=== PATIENT | male | born 1965 | race Caucasian/White ===

== ENCOUNTER 2024-10-28 09:18 | Emergency (ER) | payer OTHER, SELFPAY ==
--- OUTSIDE RECORDS SUMMARY | 2024-10-28 09:21 | XMS_ITS | Encounter Summary ---
Author Organization [facility] Address [address] [place] [address] Phone Care Team Providers Care Senior Center Manager Name Role Phone Kayli Dejesus DO Primary Care Provider +1- [phone] Reason for Visit * Reason Onset Date Comments ER F/U 02/27/2024 Encounter Details Date Type Department Care Team (Late st Contact Info) Description 02/27/2024 Telephone [facility] [address] [place] [address] Kayli Dejesus DO [address] [place] [address] ER F/U Social History Tobacco Use Types Packs/Day Years Used Date Smoking Tobacco: Never Passive Smoke Exposure: Never Smokeless Tobacco: Never Alcohol Use Standard Drinks/Week Comments Never 0 (1 standard drink = 0.6 oz pur e alcohol) B1300 Health Literacy Answer Date Recor ded How often do you need to hav e someone help you when you read instructions, pamphlets, or other written material from your doctor or pharmacy? Never 05/29/2023 [facility] Utilities Answer Date Recorded In the past 12 months has e electric, gas, oil, or water company threatened to shut off services in your home? No 12/18/2023 Hunger Vital Sign Answer Date Recorded Within the past 12 months, y ou worried that your food would run out before you got the money to buy more. Never true 12/18/19 24 Within the past 12 months, t he food you bought just didn't last and you didn't have money to get more. Never true 12/18/2023 PRAPARE - Transportation Answer Date Re corded In the past 12 months, has l ack of transportation kept you from medical appointments or from getting medications? No 12/08 In the past 12 months, has l ack of transportation kept you from meetings, work, or from getting things needed for daily living? No 12/18/2023 Housing Stability Vital Sign Answer Jono e Recorded In the last 12 months, was t here a time when you were not able to pay the mortgage or rent on time? No 01/13/2023 Number of Places Lived in the Last Year Not on f ile 01/13/2023 In the last 12 months, was t here a time when you did not have a steady place to sleep or slept in a snf (including now)? No 01/13/2023 Housing Stability Vital Sign Answer Jono e Recorded In the last 12 months, was t here a time when you were not able to pay the mortgage or rent on time? No 12/18/2023 Number of Times Moved in the Last Year Not on fi le 12/18/2023 At any time in the past 12 m [facility], were you homeless or living in a snf (including now)? No 12/18/2023 Sex and Gender Information Value Date Recorded Sex Assigned at Not on file Legal Sex Male 11:58 AM CDT Gender Identity Not on file Sexual Orientation Not on file documented as of this encounter Miscellaneous Notes * Telephone Encounter - Katie Carty - 02/28/2024 8:10 AM CST Second attempt Left voicemail and sent HTR letter for patient to call back and schedule ED follow up OR SHAREPOINT DEVELOPER * Telephone Encounter - Suki Ernandez - 02/27/2024 8:44 AM CST First attempt, LMTCB If call is returned, please assist with scheduling an ED follow up visit per below order OR SHAREPOINT DEVELOPER * Telephone Encounter - Suki Ernandez - 02/27/2024 8:44 AM CST ----- Message from Grayson Peters sent at 02/25/2024 12:36 AM SENIOR SHAREPOINT DEVELOPER ----- Regarding: Order for TIESHA GANDARA Order Specific Information Order: FLORENCIO FOLLOW UP APPOINTMENT [Custom: [id number]] Order #: [id number]: 1 Priority: Routine Class: Normal(N) Provider/Service to follow up with -> PCP Type of appointment -> ED Follow up When does appointment need to be scheduled -> 2-3 days Reason for test/appointment -> back pain, leg swelling OR SHAREPOINT DEVELOPER documented in this encounter Plan of Treatment Not on file documented as of this encounter Goals Goal Patient Goal Type Associated Problems Recent Progress Patient-Stated? Author PT R hip Physical Therapy No [facility] PT Note: Within 8 weeks (07/22/20): 1) Pt will be I and compliant with HEP in order to make progress towards functional outcomes. 2) Pt will have improved pain c/o to 0-3/10 average and 0-5/10 most in R hip to allow return towards functional activity. 3) Pt will have improved hip strength to 5/5 in order to have good prox stability for functional mobility. 4) Pt will improve B hamstring length by at least 10d to reduce strain on hips. 5) Pt will progress through a stability program to allow return towards normal activities with reduced risk of injury. PT General Goal Physical Therapy No Ree Levy, PT Note: Patient will complete the following goals in 8 weeks : 1) Patient will be independent and adherent to HEP for greater tank terminal gauger management of condition. 2) Pt will have no pain when playing piano. 3) Pt will be able to lift granddaughter (30#) with no increase in pain 4) Pt will be able to work a full day on the computer with no increase in shoulder pain. 5) pt will increase shoulder flexion strength to play mensah guitar for 3 hours. PT General Goal Physical Therapy No Leigh Up, PT Note: PELVIC All goals to be met in 90 days Patient will be independent and compliant with home program to maintain functional gains achieved in skilled PT. - still doing exercises consistently, reduced energy recently and also some low back pain, but does them when he can and still feels like they are helpful Patient will demonstrate increase in pelvic floor strength from 1/5 to 2/5 to improve pelvic support and decrease symptoms - improved mobility of pelvic floor and bowel and bladder symptoms aren't worse, maintaining status quo, strength not tested recently but last time assessed still had higher tension but was moving PF well Patient will report ability to urinate without hesitation, delay or straining in order to improve QoL. - varies from day to day but overall frequency of incomplete emptying has decreased Patient will report drinking 4-6 glasses of water per day and no more than 1 soda to improve bladder health and function - progressing, still working on improving water intake but has decreased caffeine intake Patient will score no greater than 9 on Epic- CP to demonstrate increase in quality of life - continue Patient will demonstrate resting levels with 30 second perineal semg assessment no greater than 3 microvolts to demonstrate improved pelvic resting tension and decrease pain - NT recently, focusing more on hip mobility/strengthening Patient will report decrease in average daily pain/pressure to no greater than 1/10 to allow return to PLOF and improve QofL - progressing, having daily pain in scrotal/sit bone area that feels deep but is steady, not really a flare but a constant feeling. Slight increase in low back pain recently due to moving something. Patient will score no greater than 10 on NIH-CSI Outcomes measure to demonstrate improved quality of life - continue Patient will report decrease no pain with sexual intercourse/orgasm to allow return to PLOF and improve QofL -not painful but has discussed ED meds with physician, does not want to pursue this currently. documented as of this encounter Visit Diagnoses Not on filedocumented in this encounter Additional Health Concerns Infection Onset Date Last Indicated Resolved Time Suspected COVID-19 06/15/2024 06/15/2024 4:43 PM CDT Assessment Noted Time A Hypertension Plan of Care has been documented for the patient 01/16/2024 10:37 AM SENIOR SHAREPOINT DEVELOPER documented as of this encounter Care Teams Senior Center Manager Relationship Specialty Start Date End Date Kayli Dejesus DO [facility] [place] [address] PCP - General Family Medicine 11/09/18 documented as of this encounter
--- OUTSIDE RECORDS SUMMARY | 2024-10-28 09:21 | XMS_ITS | Encounter Summary ---
Author Organization [facility] Address [address] [place] [address] Phone Care Team Providers Care Front Office Director Name Role Phone Kayli Dejesus DO Primary Care Provider +1- [phone] Encounter Details Date Type Department Care Team (Late st Contact Info) Description 01/26/2021 Orders Only [facility] Allergy [facility] [address] [place], [place] [id number] Joaquin Tang MD [address] [place], [place] [id number] Allergic rhinitis, unspecified seasonality, unspecified trigger Social History Tobacco Use Types Packs/Day Years Used Date Smoking Tobacco: Never Smokeless Tobacco: Never Alcohol Use Standard Drinks/Week Comments No 0 (1 standard drink = 0.6 oz pur e alcohol) Sex and Gender Information Value Date Recorded Sex Assigned at Not on file Legal Sex Male 11:58 AM CDT Gender Identity Not on file Sexual Orientation Not on file COVID-19 Exposure Response Date Recorded In the last month, have you been in contact with someone who was confirmed or suspected to have Coronavirus / COVID-19? No / Unsure 01/21/2021 2:54 PM DEMOLITION HAMMER OPERATOR documented as of this encounter Plan of Treatment Not on [...] independent and adherent to HEP for greater long term care pharmacist management of condition. 2) Pt will have no pain when playing piano. 3) Pt will be able to lift granddaughter (30#) with no increase in pain 4) Pt will be able to work a full day on the computer with no increase in shoulder pain. 5) pt will increase shoulder flexion strength to play mensah guitar for 3 hours. documented as of this encounter Procedures Procedure Name Priority Date/Time Associated Diagnosis Comments SEAFOOD ALLERGEN PROFILE Routine 01/21/2021 4:03 PM DEMOLITION HAMMER OPERATOR Allergic rhinitis, unspecified seasonality, unspecified trigger NUT ALLERGEN PROFILE Routine 01/21/2021 4:03 PM DEMOLITION HAMMER OPERATOR Allergic rhinitis, unspecified seasonality, unspecified trigger RESPIRATORY PROFILE, REGION 8, [facility], [facility] Routine 01/21/2021 4:03 PM DEMOLITION HAMMER OPERATOR Allergic rhinitis, unspecified seasonality, unspecified trigger documented in this encounter Results * RESPIRATORY PROFILE, REGION 8, [facility], [facility] (01/21/2021 4:03 PM DEMOLITION HAMMER OPERATOR) 01/21/2021 4:03 PM DEMOLITION HAMMER OPERATOR us Joaquin Tang MD REFERENCE BLOOD Final Result [facility] [address] [place] [id number], * SEAFOOD ALLERGEN PROFILE (01/21/2021 4:03 PM DEMOLITION HAMMER OPERATOR) 01/21/2021 4:03 PM DEMOLITION HAMMER OPERATOR us Joaquin Tang MD REFERENCE BLOOD Final Result Performing Organization Address [facility]/ZIP Co de Phone Number [facility] [address] [place] [address], [place] * NUT ALLERGEN PROFILE (01/21/2021 4:03 PM DEMOLITION HAMMER OPERATOR) 01/21/2021 4:03 PM DEMOLITION HAMMER OPERATOR us Joaquin Tang MD REFERENCE BLOOD Final Result Performing Organization Address [facility] Co de Phone Number [facility] [address] [place] [address], [place] documented in this encounter Visit Diagnoses Diagnosis Allergic rhinitis, unspecified seasonality, unspecified trigger documented in this encounter Additional Health Concerns Infection Onset Date Last Indicated Resolved Time Suspected COVID-19 02/25/2021 02/25/2021 12:24 AM DEMOLITION HAMMER OPERATOR COVID-19 02/25/2021 02/25/2021 03/18/2021 10:0 3 PM DEMOLITION HAMMER OPERATOR Suspected COVID-19 06/15/2024 06/15/2024 4:43 PM CDT Assessment Noted Time A Hypertension Plan of Care has been documented for the patient 01/19/2021 11:06 AM DEMOLITION HAMMER OPERATOR documented as of this encounter Care Teams Front Office Director Relationship Specialty Start Date End Date Kayli Dejesus DO [address] [place] [address] PCP - General Family Medicine 11/09/18 documented as of this encounter
--- OUTSIDE RECORDS SUMMARY | 2024-10-28 09:21 | XMS_ITS | Encounter Summary ---
Author Organization [facility] Address [address] [place] [address] Phone Care Team Providers Care Telecommunications Administrator Name Role Phone Kayli Dejesus DO Primary Care Provider +1- [phone] Reason for Visit * Reason Onset Date Comments Refill Request 07/23/2019 Encounter Details Date Type Department Care Team (Late st Contact Info) Description 07/23/2019 Refill [facility] [address] [place] [address] Kayli Dejesus DO [address] [place] [address] Refill Request Social History Tobacco Use Types Packs/Day Years [...] have Coronavirus / COVID-19? No / Unsure 07/13/2019 11:16 AM CDT documented as of this encounter Miscellaneous Notes * Telephone Encounter - Mary Beth Garcia RN - 07/24/2019 2:26 PM CDT RN called pt who states that he is not in any respiratory distress, but that this time of the year his allergies and asthma is worse so he can't be without the neb solution. He states that he has to use the Albuterol inhaler multiple times a day, but Singular and Symbicort doesn't wok for him. Ok to refill these meds for 90 day supply based on this information? * Telephone Encounter - Lorrie Garcia - 07/24/2019 10:03 AM CDT Patient called states he is out needs today & states he was not informed about the 72 hour rule * Telephone Encounter - Kourtney Vizcarra - 07/23/2019 1:10 PM CDT Nebulizer solution reqeusting 270 qty not the 90 documented in this encounter Plan of Treatment Not on file documented as of this encounter Visit Diagnoses Diagnosis Moderate persistent asthma with exacerbation Unspecified asthma, with exacerbation documented in this encounter Additional Health Concerns Infection Onset Date Last Indicated Resolved Time Suspected COVID-19 02/25/2021 02/25/2021 2 12:24 AM PILOT SAFETY INSPECTOR COVID-19 02/25/2021 02/25/2021 03/18/2021 10:0 3 PM PILOT SAFETY INSPECTOR Suspected COVID-19 06/15/2024 06/15/2024 5 4:43 PM CDT Assessment Noted Time A Hypertension Plan of Care has been documented for the patient 01/08/2019 11:10 AM PILOT SAFETY INSPECTOR documented as of this encounter Care Teams Telecommunications Administrator Relationship Specialty Start Date End Date Kayli Dejesus DO [facility] [address] [place] [address] PCP - General Family Medicine 11/09/18 documented as of this encounter
--- OUTSIDE RECORDS SUMMARY | 2024-10-28 09:21 | XMS_ITS | Encounter Summary ---
Author Organization [facility] Address [address] [place] [address] Phone Care Team Providers Care Musical Engineer Name Role Phone Kayli Dejesus DO Primary Care Provider +1- [phone] Encounter Details Date Type Department Care Team (Late st Contact Info) Description 03/01/2024 Results Only [facility] Oncology [facility] [place] [address] [place], [place] [id number] Sarai Medrano MD [address] [place], [place] [id number] Social History Tobacco Use Types Packs/Day Years [...] from your doctor or pharmacy? Never 05/29/2023 [facility] Utilities Answer Date Recorded In the past [...] place to sleep or slept in a [place] (including now)? No 01/13/2023 Housing Stability Vital Sign Answer Jono e Recorded In the last 12 months, was t here a time when you were not able to pay the mortgage or rent on time? No 12/18/2023 Number of Times Moved in the Last Year Not on fi le 12/18/2023 At any time in the past 12 m [place], were you homeless or living in a [place] facility (including now)? No 12/18/2023 Sex and Gender Information Value Date Recorded Sex Assigned at Not on file Legal Sex Male 11:58 AM CDT Gender Identity Not on file Sexual Orientation Not on file documented as of this encounter Plan of Treatment Not on file documented as of this encounter Goals Goal Patient Goal Type Associated Problems Recent Progress Patient-Stated? Author PT R hip Physical Therapy No [facility], PT Note: Within 8 weeks (07/22/20): 1) [...] independent and adherent to HEP for greater retirement management of condition. 2) Pt will have [...] Indicated Resolved Time Suspected COVID-19 06/15/2024 06/15/2024 5 4:43 PM CDT Assessment Noted Time A Hypertension Plan of Care has been documented for the patient 01/16/2024 10:37 AM COMIC ARTIST documented as of this encounter Care Teams Musical Engineer Relationship Specialty Start Date End Date Kayli Dejesus DO [address] [place], [place] [id number] PCP - General Family Medicine 11/09/18 documented as of this encounter
--- OUTSIDE RECORDS SUMMARY | 2024-10-28 09:21 | XMS_ITS | Encounter Summary ---
Author Organization [facility] Address [address] [place] [address] Phone Care Team Providers Care Fitter / Welder Name Role Phone Kayli Dejesus DO Primary Care Provider +1- [phone] Reason for Visit * Reason Onset Date Comments Insurance Prior Authorization 03/16/2024 Encounter Details Date Type Department Care Team (Late st Contact Info) Description 03/16/2024 Telephone [facility] [address] [place] [address] Kayli Dejesus DO [address] [place] [address] Insurance Prior Authorization Social History Tobacco Use Types Packs/Day Years [...] from your doctor or pharmacy? Never 05/29/2023 [facility] Utilities Answer Date Recorded In the past [...] place to sleep or slept in a residential (including now)? No 01/13/2023 Housing Stability Vital Sign Answer Jono e Recorded In the last 12 months, was t here a time when you were not able to pay the mortgage or rent on time? No 12/18/2023 Number of Times Moved in the Last Year Not on fi le 12/18/2023 At any time in the past 12 m [facility], were you homeless or living in a residential (including now)? No 12/18/2023 Sex and Gender Information Value Date Recorded Sex Assigned at Not on file Legal Sex Male 11:58 AM CDT Gender Identity Not on file Sexual Orientation Not on file documented as of this encounter Miscellaneous Notes * Telephone Encounter - Kourtney Vizcarra - 03/16/2024 10:09 AM CST Pt's Fibroscan - Liver is done at GI department. Left message for pt to return call and let him know to call the GI department to schedule. [phone] STRIPPER * Telephone Encounter - Kourtney Vizcarra - 03/16/2024 9:57 AM CST Order FIBROSCAN - LIVER (Order [id number]) Associated Diagnoses ICD-10-CM ICD-9-CM Elevated liver enzymes - Primary R74.8 790.5 Hepatic steatosis K76.0 571.8 Order Questions Question Answer Release to patient Immediate Diagnosis: NAFLD Lab and Collection FIBROSCAN - LIVER (Order: [id number]) - 03/08/2024 Result Read / Acknowledged No acknowledgement history exists for this order. Future Order Information Expected Expires 03/08/2024 09/05/2024 ABN Status ABN Status CPT Codes 76902 FIBROSCAN - LIVER [[id number]] 1520 Status: Active Ordering user: Kayli Dejesus DO 03/08/24 1520 Ordering provider: Kayli Dejesus DO Authorized by: Kayli Dejesus DO Ordering mode: Standard Frequency: 03/08/24 - Released by: Kayli Dejesus DO 03/08/24 1520 Location Name Address Phone Fax [place] [address] [place] [address] STRIPPER documented in this encounter Plan of Treatment [...] independent and adherent to HEP for greater extermination supervisor management of condition. 2) Pt will have [...] Date Last Indicated Resolved Time Suspected COVID-19 06/15/202406/15/2024 05/09/202 5 4:43 PM CDT Assessment Noted Time A Hypertension Plan of Care has been documented for the patient 03/13/2024 1:37 PM CAKE STRIPPER documented as of this encounter Care Teams Fitter / Welder Relationship Specialty Start Date End Date Kayli Dejesus DO [address] [place] [address] PCP - General Family Medicine 11/09/18 documented as of this encounter
--- OUTSIDE RECORDS SUMMARY | 2024-10-28 09:21 | XMS_ITS | Encounter Summary ---
Author Organization [facility] Address [address] [place] [address] Phone Care Team Providers Care Bacteriologist Fishery Name Role Phone Kayli Dejesus DO Primary Care Provider +1- [phone] Encounter Details Date Type Department Care Team (Late st Contact Info) Description 04/13/2023 Telephone [facility] Oncology [facility] [address] [place], [place] [id number] Sarai Medrano MD [address] [place], [place] [id number] Social History Tobacco Use Types Packs/Day Years Used Date Smoking Tobacco: Never Passive Smoke Exposure: Never Smokeless Tobacco: Never Alcohol Use Standard Drinks/Week Comments Never 0 (1 standard drink = 0.6 oz pur e alcohol) [facility] Utilities Answer Date Recorded In the past 12 months has e [employer], gas, oil, or water [employer] threatened to shut off services in your home? No 01/13/2023 Hunger Vital Sign Answer Date Recorded Within the past 12 months, y ou worried that your food would run out before you got the money to buy more. Never true 01/14/20 23 Within the past 12 months, t he food you bought just didn't last and you didn't have money to get more. Never true 01/13/2023 PRAPARE - Transportation Answer Date Re corded In the past 12 months, has l ack of transportation kept you from medical appointments or from getting medications? No 08/2022 In the past 12 months, has l ack of transportation kept you from meetings, work, or from getting things needed for daily living? No 01/13/2023 Housing Stability Vital Sign Answer [...] place to sleep or slept in a group home (including now)? No 01/13/2023 Sex and Gender Information Value Date Recorded Sex Assigned at Not on file Legal Sex Male 11:58 AM CDT Gender Identity Not on file Sexual Orientation Not on file documented as of this encounter Miscellaneous Notes * Telephone Encounter - Kavya Ahuja - 04/13/2023 4:36 PM CST Pt states that he is returning a call to [facility]. No documentation is found by keno writer/runner on why patient was called. Y HUSBANDMAN documented in this encounter Plan of Treatment [...] independent and adherent to HEP for greater lobsterman management of condition. 2) Pt will have [...] Care has been documented for the patient 04/12/2023 11:10 AM DAIRY HUSBANDMAN documented as of this encounter Care Teams Bacteriologist Fishery Relationship Specialty Start Date End Date Kayli Dejesus DO [address] [place] [address] PCP - General Family Medicine 11/09/18 documented as of this encounter
--- OUTSIDE RECORDS SUMMARY | 2024-10-28 09:21 | XMS_ITS | Encounter Summary ---
Author Organization [facility] Address [address] [place] [address] Phone Care Team Providers Care Commodities Broker Name Role Phone Kayli Dejesus DO Primary Care Provider +1- [phone] Encounter Details Date Type Department Care Team (Late st Contact Info) Description 01/03/2024 Orders Only [facility] [address] [place] [address] Janene Jacobsen PA [address] [place] [address] Other fatigue Social History Tobacco Use Types Packs/Day Years [...] from your doctor or pharmacy? Never 05/29/2023 [facility] Utilities Answer Date Recorded In the [...] place to sleep or slept in a long-term (including now)? No 01/13/2023 Housing Stability Vital Sign Answer Jono e Recorded In the last 12 months, was t here a time when you were not able to pay the mortgage or rent on time? No 12/18/2023 Number of Times Moved in the Last Year Not on fi le 12/18/2023 At any time in the past 12 m onths, were you homeless or living in a long-term (including now)? No 12/18/2023 Sex and Gender [...] independent and adherent to HEP for greater terminal clerk management of condition. 2) Pt will have [...] this currently. documented as of this encounter Procedures Procedure Name Priority Date/Time Associated Diagnosis Comments CBC W/DIFF Routine 12/16/2023 10:24 AM AREA FIELD PERSON Other fatigue TSH Routine 12/16/2023 10:24 AM AREA FIELD PERSON Other fatigue documented in this encounter Results * CBC W/DIFF (12/16/2023 10:24 AM AREA FIELD PERSON) WBC (EXTERNAL) 5.5 EXTERNAL LAB RBC (EXTERNAL) 5.44 EXTERNAL LAB HGB (EXTERNAL) 16.9 EXTERNAL LAB HCT (EXTERNAL) 50.1 EXTERNAL LAB MCV (EXTERNAL) 92.1 EXTERNAL LAB MCH (EXTERNAL) 31.1 EXTERNAL LAB MCHC (EXTERNAL) 33.7 EXTERNAL LAB RDW (EXTERNAL) 12.3 EXTERNAL LAB RDW-SD (EXTERNAL) EXTERNAL LAB PLATELET (EXTERNAL) 226 EXTERNAL LAB MPV (EXTERNAL) 10.2 EXTERNAL LAB SEG (EXTERNAL) EXTERNAL LAB LYMPHOCYTE (EXTERNAL) 31.2 EXTERNAL LAB MONOCYTE (EXTERNAL) 9.6 EXTERNAL LAB EOSINOPHIL (EXTERNAL) 3.1 EXTERNAL LAB BASOPHIL (EXTERNAL) 0.2 EXTERNAL LAB ABSOLUTE NEUTR (EXTERNAL) 3,075 EXTERNAL LAB ABSOLUTE LYMPH (EXTERNAL) 1,716 EXTERNAL LAB ABSOLUTE MONO (EXTERNAL) 528 EXTERNAL LAB ABSOLUTE EOS (EXTERNAL) 171 EXTERNAL LAB ABSOLUTE BASO (EXTERNAL) 11 EXTERNAL LAB 12/16/2023 10:2 4 AM AREA FIELD PERSON Janene MCGOVERN HEM/CHEM/IMMUN-BLOOD Final Resul t EXTERNAL LAB * TSH (12/16/2023 10:24 AM AREA FIELD PERSON) TSH (External) 1.78 EXTERNAL LAB 12/16/2023 10:2 4 AM AREA FIELD PERSON Janene MCGOVERN HEM/CHEM/IMMUN-BLOOD Final Resul t EXTERNAL LAB documented in this encounter Visit Diagnoses Diagnosis Other fatigue documented in this encounter Additional Health Concerns Infection Onset Date Last Indicated Resolved Time Suspected COVID-19 06/15/2024 06/15/2024 4:43 PM CDT Assessment Noted Time A Hypertension Plan of Care has been documented for the patient 12/14/2023 2:03 PM AREA FIELD PERSON documented as of this encounter Care Teams Commodities Broker Relationship Specialty Start Date End Date Kayli Dejesus DO [address] [place] [address] [place] [address] PCP - General Family Medicine 11/09/18 documented as of this encounter
--- OUTSIDE RECORDS SUMMARY | 2024-10-28 09:21 | XMS_ITS | Encounter Summary ---
Author Organization [facility] Address [address] [place] [address] Phone Care Team Providers Care Family Practice Medical Doctor Name Role Phone Kayli Dejesus DO Primary Care Provider +1- [phone] Reason for Referral * Generic Med Auth - Closed Specialty Diagnoses / Procedures Referred By Contindia t Referred To Contact Diagnoses Hyperlipidemia, unspecified hyperlipidemia type Procedures AMB MEDICATION AUTHORIZATION REQUIRED Kayli Dejesus DO [address] [place] [address] Phone: tel: fax: Referral ID Status Reason Start Date Expiration Date Visits Re quested Visits Authorized [id number] Closed 10/05/2023 1 1 Reason for Visit * Reason Onset Date Comments Insurance Prior Authorization 10/04/2023 Fl uvastatin 20 mg capsule Encounter Details Date Type Department Care Team (Late st Contact Info) Description 10/04/2023 Telephone [facility] [address] [place] [address] Kayli Dejesus DO [address] [place] [address] Insurance Prior Authorization (Fluvastatin 20 mg capsule ) Social History Tobacco Use Types Packs/Day Years Used Date Smoking Tobacco: Never Passive Smoke Exposure: Never Smokeless Tobacco: Never Alcohol Use Standard Drinks/Week Comments Never 0 (1 standard drink = 0.6 oz pur e alcohol) [address] [place] [address] Literacy Answer Date Recor ded How often do you need to hav e someone help you when you read instructions, pamphlets, or other written material from your doctor or pharmacy? Never 05/29/2023 [facility] Utilities Answer Date Recorded In the past 12 months has th e electric, gas, oil, or water company threatened to shut off services in your home? No 05/29/2023 Hunger Vital Sign Answer Date Recorded Within the past 12 months, y ou worried that your food would run out before you got the money to buy more. Never true 05/29/19 24 Within the past 12 months, t he food you bought just didn't last and you didn't have money to get more. Never true 05/29/2023 PRAPARE - Transportation Answer Date Re corded In the past 12 months, has l ack of transportation kept you from medical appointments or from getting medications? No 05/09 In the past 12 months, has l ack of transportation kept you from meetings, work, or from getting things needed for daily living? No 05/29/2023 Housing Stability Vital Sign Answer Jono e [...] the mortgage or rent on time? No 05/29/2023 Number of Times Moved in the Last Year Not on fi le 05/29/2023 At any time in the past 12 m [facility], were you homeless or living in a [place] (including now)? No 05/29/2023 Sex and Gender Information Value Date Recorded Sex Assigned at Not on file Legal Sex Male 11:58 AM CDT Gender Identity Not on file Sexual Orientation Not on file documented as of this encounter Miscellaneous Notes * Telephone Encounter - Lesia Milton - 10/11/2023 11:10 AM CDT Images from the original note were not included. AUTHORIZATION APPROVED PAYER & PORTAL USED (IF ANY) BCBS / [facility] [employer] AUTH / KIM # [id number] MEDICATION Fluvastatin 20 mg capsule DATE RANGE 09/07/2023 - 10/06/2024 REFERENCE # OR SNIP SEE SNIP BELOW [facility] [phone] & M WITH MEDICATION APPROVAL INFO * Telephone Encounter - Katrin Marin RN - 10/05/2023 1:15 PM CDT Please route any update/status requests to p patient access prior auth unit. RX nurse does not receive the determinations. Referral work up done and sent to Prior Auth Unit WQ. * Telephone Encounter - Henna Pearson - 10/04/2023 2:48 PM CDT Note from pharmacy fax: RECEIVED PA REQUEST FOR Fluvastatin 20 mg capsule documented in this encounter Plan of Treatment [...] independent and adherent to HEP for greater senior planner management of condition. 2) Pt will have [...] as of this encounter Visit Diagnoses Diagnosis Hyperlipidemia, unspecified hyperlipidemia type- Primary documented in this encounter Additional Health Concerns Infection Onset Date Last Indicated Resolved Time Suspected COVID-19 06/15/2024 06/15/2024 4:43 PM CDT Assessment Noted Time A Hypertension Plan of Care has been documented for the patient 09/22/2023 11:12 AM CDT documented as of this encounter Care Teams Family Practice Medical Doctor Relationship Specialty Start Date End Date Kayli Dejesus DO [address] [place], [place] [id number] PCP - General Family Medicine 11/09/18 documented as of this encounter
--- OUTSIDE RECORDS SUMMARY | 2024-10-28 09:21 | XMS_ITS | Encounter Summary ---
Author Organization [facility] Address [address] [place] [address] Phone Care Team Providers Care Flour Distributor Name Role Phone Catalino Leon DO Primary Care Provider +1- [phone] Reason for Visit * Reason Onset Date Comments Referral 05/27/2020 Encounter Details Date Type Department Care Team (Late st Contact Info) Description 05/27/2020 Telephone [facility] [address] [place] [address] Catalino Leon DO [address] [place] [address] Referral Social History Tobacco Use Types Packs/Day Years [...] have Coronavirus / COVID-19? No / Unsure 05/27/2020 2:07 PM CDT documented as of this encounter Miscellaneous Notes * Telephone Encounter - Ramandeep Huffman - 05/27/2020 2:23 PM CDT Scheduled * Telephone Encounter - Piterhortencia Dara - 05/27/2020 2:15 PM CDT Any provider is okay, first available. Thank you! * Telephone Encounter - ShermanPrimitivoie - 05/27/2020 11:10 AM CDT Pt is Ref CATALINO LEON, BPH associated with nocturia, (in comments office has Normal PSA, decreased stream, semen on urine specimen without recent intercourse) Please advise on scheduling with provider. Thank you please route back to P Referral Center documented in this encounter Plan of Treatment [...] normal activities with reduced risk of injury. documented as of this encounter Visit Diagnoses Not on filedocumented in this encounter Additional Health Concerns Infection Onset Date Last Indicated Resolved Time Suspected COVID-19 02/25/2021 02/25/2021 2 12:24 AM CUSTOM BOW MAKER COVID-19 02/25/2021 02/25/2021 03/18/2021 10:0 3 PM CUSTOM BOW MAKER Suspected COVID-19 06/15/2024 06/15/2024 5 4:43 PM CDT Assessment Noted Time A Hypertension Plan of Care has been documented for the patient 05/26/2020 8:37 AM CDT documented as of this encounter Care Teams Flour Distributor Relationship Specialty Start Date End Date Catalino Leon DO [address] [place] [address] PCP - General Family Medicine 11/09/18 documented as of this encounter
--- OUTSIDE RECORDS SUMMARY | 2024-10-28 09:21 | XMS_ITS | Encounter Summary ---
Author Organization [facility] Address [address] [place] [address] Phone Care Team Providers Care Air Export Logistics Manager Name Role Phone Kayli Dejesus DO Primary Care Provider +1- [phone] Encounter Details Date Type Department Care Team (Late st Contact Info) Description 06/03/2023 Telephone [facility] 2nd Floor [address], [place] [id number] Nurse, [facility] [address] [place], [place] [address] Social History Tobacco Use Types Packs/Day Years [...] from your doctor or pharmacy? Never 05/29/2023 [facility] Utilities Answer Date Recorded In the past 12 months has e electric, gas, oil, or water [employer] threatened to shut off services in your [...] place to sleep or slept in a usp (including now)? No 01/13/2023 Housing Stability Vital Sign Answer Jono e Recorded In the last 12 months, was t here a time when you were not able to pay the mortgage or rent on time? No 05/29/2023 Number of Times Moved in the Last Year Not on fi le 05/29/2023 At any time in the past 12 m [facility], were you homeless or living in a usp (including now)? No 05/29/2023 Sex and Gender Information Value Date Recorded Sex Assigned at Not on file Legal Sex Male 11:58 AM CDT Gender Identity Not on file Sexual Orientation Not on file documented as of this encounter Miscellaneous Notes * Telephone Encounter - Raquel Sandhu RN - 06/03/2023 9:17 AM CDT Called patient regarding Transitional Care Clinic referral from ER. Patient states he is taking theantibiotic and feels his leg is improving. Offered TCC appointment. Pt agreeable and appointment scheduled. Patient does have follow-up with PCP on Tuesday06/07/2023. Order for TIESHA GANDARA Jason Aaron, MD ([phone]) Sent: TueJune 02, 2023 4:32 PM To: P Transitional Care Clinic Rn Message Order Specific Information Order: TRANSITIONAL CARE CLINIC REQUEST [Custom: [id number]] Order #: [id number]: 1 Priority: Routine Released on: 06/02/2023 4:32 PM documented in this encounter Plan of Treatment [...] independent and adherent to HEP for greater [place] [facility] management of condition. 2) Pt will have [...] Care has been documented for the patient 05/09/2023 7:49 AM CDT documented as of this encounter Care Teams Air Export Logistics Manager Relationship Specialty Start Date End Date Kayli Dejesus DO [address] [place] [address] PCP - General Family Medicine 11/09/18 documented as of this encounter
--- OUTSIDE RECORDS SUMMARY | 2024-10-28 09:21 | XMS_ITS | Encounter Summary ---
Author Organization [facility] Address [address] [place] [address] Phone Care Team Providers Care Indoor Plant Technician Name Role Phone Wilmersaida Kayli Jamison DO Primary Care Provider +1- [phone] Reason for Visit * Reason Onset Date Comments Recall 06/10/2023 Encounter Details Date Type Department Care Team (Late st Contact Info) Description 06/10/2023 Telephone [facility] [address] [place], [place] [address] Romeo Charles MD [address] [place] [address] Recall Social History Tobacco Use Types Packs/Day Years [...] from your doctor or pharmacy? Never 05/29/2023 [facility] Utilities Answer Date Recorded In the [...] any time in the past 12 m [facility], were you homeless or living in a usp (including now)? No 05/29/2023 Sex and Gender Information Value Date Recorded Sex Assigned at Not on file Legal Sex Male 11:58 AM CDT Gender Identity Not on file Sexual Orientation Not on file documented as of this encounter Miscellaneous Notes * Telephone Encounter - Romeo Charles MD - 06/10/2023 12:28 PM CDT 6 months * Telephone Encounter - Agustina Brar RN - 06/10/2023 12:[address] Guevara- when do you want to see patient back? * Telephone Encounter - Henna Mcclendon - 06/10/2023 11:33 AM CDT Patient called in to schedule follow up with Ismael. did not mention when patient should return to clinic. Please advise and call patient documented in this encounter Plan of Treatment [...] and adherent to HEP for greater senior care management of condition. 2) Pt will have [...] Care has been documented for the patient 06/07/2023 10:06 AM CDT documented as of this encounter Care Teams Indoor Plant Technician Relationship Specialty Start Date End Date Kayli Dejesus DO [address] [place] [address] PCP - General Family Medicine 11/09/18 documented as of this encounter
--- OUTSIDE RECORDS SUMMARY | 2024-10-28 09:21 | XMS_ITS | Encounter Summary ---
Author Organization [facility] Address [address] [place] [address] Phone Care Team Providers Care Investment Trader Name Role Phone Kayli Dejesus DO Primary Care Provider +1- [phone] Reason for Referral * Consultation - Closed Specialty Diagnoses / Procedures Referred By Contac t Referred To Contact Cardiology Diagnoses Palpitations SOB (shortness of breath) SVT (supraventricular tachycardia) ([facility]) Procedures AMB CONSULT CARDIOLOGY Kayli Dejesus DO [address] [place] [address] Phone: tel: fax: [facility] [place] [address] [place] [address] Phone: tel: fax: Referral ID Status Reason Start Date Expiration Date Visits Re quested Visits Authorized [id number] Closed 04/11/2023 1 1 ING PIPE DRILLER AND THREADER Reason for Visit * Reason Onset Date Comments Results 04/11/2023 Encounter Details Date Type Department Care Team (Late st Contact Info) Description 04/11/2023 Telephone [facility] [place] [address] [place] [address] Kayli Dejesus DO [address] [place] [address] Results Social History Tobacco Use Types Packs/Day Years Used Date Smoking Tobacco: Never Passive Smoke Exposure: Never Smokeless Tobacco: Never Alcohol Use Standard Drinks/Week Comments Never 0 (1 standard drink = 0.6 oz pur e alcohol) [facility] Utilities Answer Date Recorded In the past [...] place to sleep or slept in a nursing home (including now)? No 01/13/2023 Sex and Gender Information Value Date Recorded Sex Assigned at Not on file Legal Sex Male 11:58 AM CDT Gender Identity Not on file Sexual Orientation Not on file documented as of this encounter Miscellaneous Notes * Telephone Encounter - Fermin, MILLA Jackson - 04/11/2023 3:39 PM CST Called patient and reviewed below results from Dr. Dejesus. Patient states understanding and agreeable with plan. Nurse reviewed pursed lip breathing. Patient states he did have recent episodes over the weekend. States weird HR, feeling faint, guys at work said I looked pale. Patient also states he's been short of breath, dizzy, experienced heavychest and has been wheezy. States BP was 131/81 yesterday. Advised patient if he experiences these symptoms to seek care in ED to be further evaluated. Patient agreeable. Patient agreeable with with med dosage adjustment if needed. Patient agreeable to Cardiology. Order placed. Due to ongoing symptoms patient also scheduled for appt with Dr. Dejesus 04/12/23 at 11am. ING PIPE DRILLER AND THREADER * Telephone Encounter - Manuel Christensen LPN - 04/11/2023 3:16 PM CST ----- Message from Kayli Dejesus DO sent at 04/06/2023 10:46 AM SMOKING PIPE DRILLER AND THREADER ----- Please call patient with results. Overall findings are reassuring. He does have some episodes of supraventricular tachycardia but these are brief and limited. When these episodes occur typically doing things like breathing through a straw or breathing slowly through pursed lips can be helpful for driving heart rate down. Patient isalso on beta-anthony at this time and medication could be adjusted for more optimal control of these episodes if patient is able to tolerate an adjustment. At this time if patient is otherwise not having significant symptoms with these episodes does not require any adjustment to medication. If patient does have return of symptoms or persistent duration of these symptoms then more intervention may be needed at that time and or referral to Cardiology. ING PIPE DRILLER AND THREADER ING PIPE DRILLER AND THREADER documented in this encounter Plan of Treatment [...] independent and adherent to HEP for greater snf management of condition. 2) Pt will have [...] as of this encounter Visit Diagnoses Diagnosis Palpitations- Primary SOB (shortness of breath) Shortness of breath SVT (supraventricular tachycardia) ([facility]) Other specified cardiac dysrhythmias documented in this encounter Additional Health Concerns Infection Onset Date Last Indicated Resolved Time Suspected COVID-06/15/2024 06/15/2024 4:43 PM CDT Assessment Noted Time A Hypertension Plan of Care has been documented for the patient 01/20/2023 2:55 PM SMOKING PIPE DRILLER AND THREADER documented as of this encounter Care Teams Investment Trader Relationship Specialty Start Date End Date Kayli Dejesus DO [address] [place] [address] PCP - General Family Medicine 11/09/18 documented as of this encounter
--- OUTSIDE RECORDS SUMMARY | 2024-10-28 09:21 | XMS_ITS | Encounter Summary ---
Author Organization [facility] Address [address] [place] [address] Phone Care Team Providers Care Ditch Rider Name Role Phone Kayli Dejesus DO Primary Care Provider +1- [phone] Reason for Visit * Reason Onset Date Comments Medication Problem 09/22/2023 Repeat Call 09/22/2023 Encounter Details Date Type Department Care Team (Late st Contact Info) Description 09/22/2023 Telephone [facility] [address] [place] [address] Kayli Dejesus DO [address] [place] [address] Medication Problem; Repeat Call Social History Tobacco Use Types Packs/Day Years [...] from your doctor or pharmacy? Never 05/29/2023 [facility] Utilities Answer Date Recorded In the past [...] place to sleep or slept in a mcc (including now)? No 01/13/2023 Housing Stability Vital Sign Answer Jono e Recorded In the last 12 months, was t here a time when you were not able to pay the mortgage or rent on time? No 05/29/2023 Number of Times Moved in the Last Year Not on fi le 05/29/2023 At any time in the past 12 m [facility], were you homeless or living in a mcc (including now)? No 05/29/2023 Sex and Gender Information Value Date Recorded Sex Assigned at Not on file Legal Sex Male 11:58 AM CDT Gender Identity Not on file Sexual Orientation Not on file documented as of this encounter Miscellaneous Notes * Telephone Encounter - Kalyi Dejesus DO - 09/22/2023 3:35 PM CDT Order updated/signed * Telephone Encounter - Diya James RN - 09/22/2023 3:17 PM CDT Spoke with pt and he states just keep the dose the same as before since the insurance isn't wantingto cover the BID dosing. Pt states he can just keep breaking the tab in 1/2. To NLA or orders. Previous order was for 15mg 1/2 tab BID * Telephone Encounter - Taurus Perez - 09/22/2023 1:22 PM CDT ..pt returning the nurse???s call. software implementation specialist was unable to reach the RN on extension [phone] or [phone] at this time. Chauncey can best be reached at [phone] number * Telephone Encounter - Diya James RN - 09/22/2023 12:45 PM CDT Pt was unable to speak to nurse at the time of the call. He will call back when he can. Wanted to speak to pt about options on meds. One option would be to us [facility] to get sims down if pt is wanting to stay on the current dose and not change dose or how he is taking it. Per [facility] wouldbe approx $14.92 for #60 of the 7.5mg. will discuss further with pt and then with pharmacy on how to proceed. * Telephone Encounter - Emma Krueger - 09/22/2023 12:08 PM CDT Belle from [facility] pharmacy is calling to confirm Buspirone medication for patient. Pharmacy number is [phone] Belle states insurance won't cover the Buspirone 7.5 mg twice a day but will cover Buspirone 15 mgonce daily.. documented in this encounter Plan of Treatment Not on file documented as of this encounter Goals Goal Patient Goal Type Associated Problems Recent Progress Patient-Stated? Author PT R hip Physical Therapy Litzy Nice PT Note: Within 8 weeks (07/22/20): 1) [...] to HEP for greater long term care phlebotomist management of condition. 2) Pt will have [...] as of this encounter Visit Diagnoses Diagnosis Anxiety disorder, unspecified type documented in this encounter Additional Health Concerns Infection Onset Date Last Indicated Resolved Time Suspected COVID-19 06/15/2024 06/15/2024 4:43 PM CDT Assessment Noted Time A Hypertension Plan of Care has been documented for the patient 09/22/2023 11:12 AM CDT documented as of this encounter Care Teams Ditch Rider Relationship Specialty Start Date End Date Kayli Dejesus DO [address] [place] [address] PCP - General Family Medicine 11/09/18 documented as of this encounter
--- OUTSIDE RECORDS SUMMARY | 2024-10-28 09:21 | XMS_ITS | Encounter Summary ---
Author Organization [facility] Address [address] [place] [address] Phone Care Team Providers Care Middle School Assistant Principal Name Role Phone Kayli Dejesus DO Primary Care Provider +1- [phone] Reason for Visit * Reason Onset Date Comments Transitional Care Management 06/01/2023 Encounter Details Date Type Department Care Team (Late st Contact Info) Description 06/01/2023 Telephone [facility] [address] [place] [address] Kayli Dejesus DO [address] [place] [address] Transitional Care Management Social History Tobacco Use Types Packs/Day Years [...] from your doctor or pharmacy? Never 05/29/2023 [facility] Utilities Answer Date Recorded In [...] time in the past 12 m [facility], were you homeless or living in a long-term (including now)? No 05/29/2023 Sex and Gender Information Value Date Recorded Sex Assigned at Not on file Legal Sex Male 11:58 AM CDT Gender Identity Not on file Sexual Orientation Not on file documented as of this encounter Miscellaneous Notes * Telephone Encounter - Juan Leelee - 06/01/2023 3:29 PM CDT Pt scheduled on 06-06. Pt aware and agreeable. Were your discharge instructions clear and understandable? yes Do you have transportation to your follow-up visit? yes Do you have your medications? yes Do you understand what they are for and how to take them? Yes Is there anything you would like to speak with a care steam fitter about, such as medications, doctor appointments, or services? No If patient schedules and questions were answered, please mookie appointment note as [facility] hospital follow up for the reason for visit. If patient answers any of the 1st four questions with a No or the last question with a Yes then please route back to nursing to address the concern. If patient answers the 1st four questions as yes and the last question as no please close the message after marking the appointment note as TCM. * Telephone Encounter - Yana Mackey RN - 06/01/2023 1:26 PM CDT Call patient to schedule hospital follow up appointment and ask the following questions: Were your discharge instructions clear and understandable? Do you have transportation to your follow-up visit? Do you have your medications? Do you understand what they are for and how to take them? Is there anything you would like to speak with a care steam fitter about, such as medications, doctor appointments, or services? If patient schedules and questions were answered, please mookie appointment note as TCM hospital follow up for the reason for visit. If patient answers any of the 1st four questions with a No or the last question with a Yes then please route back to nursing to address the concern. If patient answers the 1st four questions as yes and the last question as no please close the message after marking the appointment note as TCM. documented in this encounter Plan of Treatment [...] independent and adherent to HEP for greater penitentiary management of condition. 2) Pt will have [...] documented as of this encounter Care Teams Middle School Assistant Principal Relationship Specialty Start Date End Date Kayli Dejesus DO [facility] [place] [address] PCP - General Family Medicine 11/09/18 documented as of this encounter
--- OUTSIDE RECORDS SUMMARY | 2024-10-28 09:21 | XMS_ITS | Encounter Summary ---
Author Organization [facility] Address [address] [place] [address] Phone Care Team Providers Care Supervisor Concrete [employer]ricating Name Role Phone Kayli Dejesus DO Primary Care Provider +1- [phone] Encounter Details Date Type Department Care Team (Late st Contact Info) Description 12/07/2023 Telephone [facility] [address] [place], [place] [id number] Patricia Jones MD [address] [place] [address] Social History Tobacco Use Types Packs/Day Years [...] from your doctor or pharmacy? Never 05/29/2023 [facility] Utilities Answer Date Recorded In [...] place to sleep or slept in a senior care (including now)? No 01/13/2023 Housing Stability Vital Sign Answer Jono e Recorded In the last 12 months, was t here a time when you were not able to pay the mortgage or rent on time? No 05/29/2023 Number of Times Moved in the Last Year Not on fi le 05/29/2023 At any time in the past 12 m [facility], were you homeless or living in a senior care (including now)? No 05/29/2023 Sex and Gender Information Value Date Recorded Sex Assigned at Not on file Legal Sex Male 11:58 AM CDT Gender Identity Not on file Sexual Orientation Not on file documented as of this encounter Miscellaneous Notes * Telephone Encounter - Franky Toro - 12/07/2023 1:53 PM CDT Called [facility] and requested PT's lab results. Labs should be faxed today. 11/3023. * Telephone Encounter - Brea Glass RN - 12/07/2023 11:11 AM CDT Routing to PSR Per Dr Salazar, Please obtain lab records from [facility]. 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 2) Pt will have [...] documented as of this encounter Care Teams Supervisor Concrete Stone Fabricating Relationship Specialty Start Date End Date Kayli Dejesus DO [address] [place] [address] PCP - General Family Medicine 11/09/18 documented as of this encounter
--- OUTSIDE RECORDS SUMMARY | 2024-10-28 09:21 | XMS_ITS | Encounter Summary ---
Author Organization [facility] Address [address] [place] [address] Phone Care Team Providers Care Vacuum Pan Tender Name Role Phone Kayli Dejesus DO Primary Care Provider +1- [phone] Encounter Details Date Type Department Care Team (Late st Contact Info) Description 03/29/[address] [facility] [address] [place] [address] Nurse, [facility] [address] [place] [id number] Social History Tobacco Use Types Packs/Day Years [...] from your doctor or pharmacy? Never 05/29/2023 [facility] Utilities Answer Date Recorded In the past 12 months has [employer], gas, oil, or water company threatened [...] place to sleep or slept in a long term (including now)? No 01/13/2023 Housing Stability Vital Sign Answer Jono e Recorded In the last 12 months, was t here a time when you were not able to pay the mortgage or rent on time? No 12/18/2023 Number of Times Moved in the Last Year Not on fi le 12/18/2023 At any time in the past 12 m [facility], were you homeless or living in a long term (including now)? No 12/18/2023 Sex and Gender Information Value Date Recorded Sex Assigned at Not on file Legal Sex Male 11:58 AM CDT Gender Identity Not on file Sexual Orientation Not on file documented as of this encounter Miscellaneous Notes * Telephone Encounter - Therese Angela - 03/29/2024 8:59 AM CST Mcm sent to schedule consult TOLOGY PHYSICIAN * Telephone Encounter - Kristen Acosta APRN - 03/29/2024 8:40 AM HEPATOLOGY PHYSICIAN Any provider. If ERROL Kayli Jones Amber, Alicia or Alden, 60 minutes. Fibroscan already completed. TOLOGY PHYSICIAN TOLOGY PHYSICIAN * Telephone Encounter - Urszula Turner - 03/29/2024 8:20 AM CST Please review consultation referral. Dx: Fatty liver Referring physician: Oleg Location of notes: chart TOLOGY PHYSICIAN documented in this encounter Plan of Treatment [...] independent and adherent to HEP for greater mcc management of condition. 2) Pt will have [...] documented for the patient 03/13/2024 1:37 PM HEPATOLOGY PHYSICIAN documented as of this encounter Care Teams Vacuum Pan Tender Relationship Specialty Start Date End Date Kayli Dejesus DO [facility] [place] [address] PCP - General Family Medicine 11/09/18 documented as of this encounter
--- OUTSIDE RECORDS SUMMARY | 2024-10-28 09:21 | XMS_ITS | Encounter Summary ---
Author Organization [facility] Address [address] [place] [address] Phone Care Team Providers Care Stock Wetter Name Role Phone Wilmersaida Kayli Jamison DO Primary Care Provider +1- [phone] Encounter Details Date Type Department Care Team (Late st Contact Info) Description 08/08/2020 Telephone [facility] [address] [place] [address] Kishor Castrejon MD Social History Tobacco Use Types Packs/Day Years [...] have Coronavirus / COVID-19? No / Unsure 08/07/2020 2:13 PM CDT documented as of this encounter Miscellaneous Notes * Telephone Encounter - Henna Eid - 08/14/2020 1:49 PM CDT Unable to contact letter sent. * Telephone Encounter - Shayy Robles - 08/08/2020 2:18 PM CDT 1st attempt: Phone call connected but no one there. Line went . Callback and phone rang continuously Please sched per Dr Castrejon 0 Return in about 4 weeks (around 08/14/2020) for FU urine check. documented in this encounter Plan of Treatment [...] adherent to HEP for greater long term acute care registered nurse management of condition. 2) Pt will have [...] 3 hours. documented as of this encounter Visit Diagnoses Not on filedocumented in this encounter Additional Health Concerns Infection Onset Date Last Indicated Resolved Time Suspected COVID-19 02/25/2021 02/25/2021 2 12:24 AM ROLL FINISHER COVID-19 02/25/2021 02/25/2021 03/18/2021 10:0 3 PM ROLL FINISHER Suspected COVID-19 06/15/2024 06/15/2024 5 4:43 PM CDT Assessment Noted Time A Hypertension Plan of Care has been documented for the patient 07/14/2020 8:17 AM CDT documented as of this encounter Care Teams Stock Wetter Relationship Specialty Start Date End Date Kayli Dejesus DO [address] [place] [address] PCP - General Family Medicine 11/09/18 documented as of this encounter
--- OUTSIDE RECORDS SUMMARY | 2024-10-28 09:21 | XMS_ITS | Encounter Summary ---
Author Organization [facility] Address [address] [place] [address] Phone Care Team Providers Care Impregnator Name Role Phone Kayli Dejesus DO Primary Care Provider +1- [phone] Reason for Referral * - Closed Specialty Diagnoses / Procedures Referred By Contac t Referred To Contact Diagnoses Bladder outlet obstruction Procedures US BLADDER CHG SONO PELVIS LIMITED Yg Kamara MD [address] [place] [address] Phone: tel: fax: [facility] [address] [place] [phone] Phone: tel: Referral ID Status Reason Start Date Expiration Date Visits Re quested Visits Authorized [id number] Closed 01/24/2023 1 1 CONNECTOR REPAIRER Encounter Details Date Type Department Care Team (Late st Contact Info) Description 01/21/2023 Telephone [facility] Urology [facility] [address] [place] [address] Yg Kamara MD [address] [place] [address] Social History Tobacco Use Types Packs/Day Years Used Date Smoking Tobacco: Never Smokeless Tobacco: Never Alcohol Use Standard Drinks/Week Comments Never 0 (1 standard drink = 0.6 oz pur e alcohol) [facility] Utilities Answer Date Recorded In [...] place to sleep or slept in a detention (including now)? No 01/13/2023 Sex and Gender Information Value Date Recorded Sex Assigned at Not on file Legal Sex Male 11:58 AM CDT Gender Identity Not on file Sexual Orientation Not on file documented as of this encounter Miscellaneous Notes * Telephone Encounter - Eryn Padgett RN - 01/25/2023 8:53 AM CST Left message for patient to return call to nurse and [employer] message sent to patient regarding below encounter per Dr. Kamara. CONNECTOR REPAIRER * Telephone Encounter - Yg Kamara MD - 01/24/2023 5:56 PM CST Urology RN: Let him know that his PSA from today is normal at 1.0. I would recommend that we check a bladder ultrasound to make sure he is emptying his bladder appropriately. I would also check a urine culture to rule out a urine infection. We can let him know the results. If infection is found, wewill treat with antibiotics. I would recommend he make an appointment next available in late March. However, these tests can be done in the meantime. Because of his discomfort, he can also try Pyridium to help with pain. Let him know this can be taken as needed and will make his urine turned orange colored but is supposed to help soothe any burning or pain sensation. I will prescribe this to the pharmacy for him to try in the meantime. Let him know we are very short staffed and earlier appointments are made for urgent cancers. Let him know that [facility] likely has openings and theirUrology Department and can likely see him sooner. It may be helpful for him to have a 2nd opinion as well. CONNECTOR REPAIRER * Telephone Encounter - Indigo Blanco RN - 01/21/2023 5:[address] Kamara, Patient is concerned about his co morbidities and being seen by you before the end of March. Patient states that his functionality is decreasing in all area's of life. Patient has completed pelvicfloor therapy to no avail, urination is not good, dribbles, taking a long time to start. Low grade pain constant, a 3-4 always present. Waves of 6-7 pain occasional felt in multiple places. Please advise if this patient should be seen sooner than the end of March, and where on your schedule we can place him if you agree with seeing him sooner than first available. Thank you CONNECTOR REPAIRER * Telephone Encounter - Aleksandar Lawler - 01/21/2023 4:54 PM CST Pt called in stating that he would like to schedule a f/u with Dr. Kamara to discuss Sx. Pt states all functionality for him has become limited and he is experiencing regular pain. First available for Dr. Kamara is 04/04/22, pt declined scheduling and would like to be seen by another provider with sooner availability if possible. Pt would like to begin by having a call from the nurses to discuss current Sx and determine f/u timeline. Please advise. Thank you. CONNECTOR REPAIRER documented in this encounter Plan of Treatment [...] independent and adherent to HEP for greater fpc management of condition. 2) Pt will have [...] this currently. documented as of this encounter Results * US BLADDER (01/26/2023 10:02 AM COIL CONNECTOR REPAIRER) Anatomical Region Laterality Modality Pelvis N/A Ultrasound 01/26/2023 8:35 AM COIL CONNECTOR REPAIRER Narrative 01/26/2023 11:10 AM COIL CONNECTOR REPAIRER Accession Exam Completed Date/Time [id number] US BLADDER 01/26/2023 10:02 Requesting: YG KAMARA EXAM: US BLADDER 01/26/2023 8:35 AM TECHNIQUE: Bladder ultrasound CLINICAL INDICATION: Benign prostatic hypertrophy suspected. Bladder outlet obstruction. COMPARISON: CT 04/19/2020 FINDINGS: Prevoid bladder volume is 6.2 x 4.7 x 6.4 cm or 96 cc. Bladder wall measures 4.9 mm in width which is mildly thickened. Post void bladder volume is 3.0 x 1.0 x 2.2 cm or 3.7 cc which is adequate emptying. Color jet seen at the right and left ureterovesicular junction which can be seen with patency. IMPRESSION: 1. Normal bladder emptying. 2. Possible mild bladder hypertrophy Electronically Signed and Authenticated by Chauncey Worrell 01/26/2023 11:10 Procedure Note Chauncey Worrell MD - 01/26/2023 Accession Exam CompletedDate/Time [id number] US BLADDER 310:02 Requesting: YG KAMARA EXAM: US BLADDER 01/26/2023 8:35 AM TECHNIQUE: Bladder ultrasound CLINICAL INDICATION: Benign prostatic hypertrophy suspected. Bladderoutlet obstruction. COMPARISON: CT 04/19/2020 FINDINGS: Prevoid bladder volume is 6.2 x 4.7 x 6.4 cm or 96 cc. Bladderwall measures 4.9 mm in width which is mildly thickened. Post void bladdervolume is 3.0 x 1.0 x 2.2 cm or 3.7 cc which is adequate emptying. Colorjet seen at the right and left ureterovesicular junction which can be seen with patency. IMPRESSION: 1. Normal bladder emptying. 2. Possible mild bladder hypertrophy Electronically Signed and Authenticated by Chauncey Worrell 01/26/2023 11:10 us Yg Kamara MD PORTABLE ULTRASOUND Final Result documented in this encounter Visit Diagnoses Diagnosis Bladder outlet obstruction- Primary Urinary obstruction, unspecified Bladder outlet obstruction Urinary obstruction, unspecified documented in this encounter Additional Health Concerns Infection Onset Date Last Indicated Resolved Time Suspected COVID-19 06/15/2024 06/15/2024 4:43 PM CDT Assessment Noted Time A Hypertension Plan of Care has been documented for the patient 01/20/2023 2:55 PM COIL CONNECTOR REPAIRER documented as of this encounter Care Teams Impregnator Relationship Specialty Start Date End Date Kayli Dejesus DO [address] [facility] [place] [address] PCP - General Family Medicine 11/09/18 documented as of this encounter
--- OUTSIDE RECORDS SUMMARY | 2024-10-28 09:21 | XMS_ITS | Encounter Summary ---
Author Organization [facility] Address [address] [place] [address] Phone Care Team Providers Care Administrative Analyst Name Role Phone Kayli Dejesus DO Primary Care Provider +1- [phone] Encounter Details Date Type Department Care Team (Late st Contact Info) Description 12/04/2020 Orders Only [facility] [address] [place] [address] Kayli Dejesus DO [address] [place] [address] Paresthesia Social History Tobacco Use Types Packs/Day Years [...] have Coronavirus / COVID-19? No / Unsure 12/04/2020 10:23 AM CDT documented as of this encounter Plan of [...] Procedure Name Priority Date/Time Associated Diagnosis Comments GLYCO HB A1C Routine 12/01/2020 12:09 PM CDT Paresthesia VITAMIN D, 25-HYDROXY Routine 12/01/2020 12:09 PM CDT Paresthesia VITAMIN B12 Routine 12/01/2020 12:09 PM CDT Paresthesia documented in this encounter Results * VITAMIN D, 25-HYDROXY (12/01/2020 12:09 PM CDT) Vitamin D, 25-Hydroxy, Total (External) [facility] 12/01/2020 12:0 9 PM CDT us Kayli Dejesus DO HEM/CHEM/IMMUN-BLOOD Final Result [facility] [address] [place] [address], * VITAMIN B12 (12/01/2020 12:09 PM CDT) Vitamin B12 (External) 429 [facility] 12/01/2020 12:0 9 PM CDT us Kayli Dejesus DO HEM/CHEM/IMMUN-BLOOD Final Result Performing Organization Address [facility]/ZIP Co de Phone Number [facility] [address] [place] [phone], * GLYCO HB A1C (12/01/2020 12:09 PM CDT) GLYCO HB A1C (External) 5.4 [facility] 12/01/2020 12:0 9 PM CDT us Kayli Dejesus DO HEM/CHEM/IMMUN-BLOOD Final Result Performing Organization Address [facility] Co de Phone Number [facility] [address] [place] [phone], documented in this encounter Visit Diagnoses Diagnosis Paresthesia Disturbance of skin sensation documented in this encounter Additional Health Concerns Infection Onset Date Last Indicated Resolved Time Suspected COVID-19 02/25/2021 02/25/2021 2 12:24 AM PAINTINGS CONSERVATOR COVID-19 02/25/2021 02/25/2021 03/18/2021 10:0 3 PM PAINTINGS CONSERVATOR Suspected COVID-19 06/15/2024 06/15/2024 5 4:43 PM CDT Assessment Noted Time A Hypertension Plan of Care has been documented for the patient 12/01/2020 11:06 AM CDT documented as of this encounter Care Teams Administrative Analyst Relationship Specialty Start Date End Date Kayli Dejesus DO [facility] [place] [address] PCP - General Family Medicine 11/09/18 documented as of this encounter
--- OUTSIDE RECORDS SUMMARY | 2024-10-28 09:22 | XMS_ITS | Encounter Summary ---
Author Organization [facility] Address [address] [place] [address] Phone Care Team Providers Care Pathology Laboratory Aide Name Role Phone Catalino Leon DO Primary Care Provider +1- [phone] Reason for Visit * Reason Onset Date Comments Insurance Prior Authorization 08/16/2022 Encounter Details Date Type Department Care Team (Late st Contact Info) Description 08/16/2022 Telephone [facility] [address] [place] [address] Catalino Leon DO [address] [place] [address] Insurance Prior Authorization Social History [...] encounter Miscellaneous Notes * Telephone Encounter - Jeanne Herndon - 09/07/2022 4:28 PM CDT Called PT to schedule Event Recorder and PT stated he didn't know this would be a 30 monitor and isgoing to call his PCP and talk with them first before scheduling and will call us back. For Palpitations [R00.2], Catalino Leon * Telephone Encounter - Kourtney Vizcarra - 08/17/2022 10:22 AM CDT CPT codes: 43423 - No PA required 83187 - No PA required 02560 - No PA required Per BC/BS automated system Conf #[id number] Routing to Cardiology PSR to schedule. * Telephone Encounter - Kourtney Vizcarra - 08/16/2022 1:00 PM CDT Subscriber: [id number] MISSY GANDARA Rel to sub: 02 - Spouse [facility] [id number] Benefit [facility]: [id number] Group number: [id number] Long wait times * Telephone Encounter - Bia Brar - 08/16/2022 11:42 AM CDT ----- Message from Catalino Leon DO sent at 08/16/2022 11:29 AM CDT ----- Regarding: Order for TIESHA GANDARA [facility] Medicine [address] [place] [address] [place] [id number] Patient Name:Tiesha Gandara Date of :1965 Sex:male Telephone Information: Work Phone Not on file. Types of orders made on 08/16/2022 : [facility], Outpatient Referral Order Date and Time:08/16/2022 11:29 AM Ordering User:CATALINO LEON DO [NIARNOLD] Electronically Signed By: Catalino Leon DO [[id number]] Order Specific Information Order: MOBILE CARDIAC TELEMETRY (FORMERLY EVENT RECORDER) [Custom: [id number]] Order #: [id number]: 1 FUTURE Priority: Routine Class: Ancillary Performed F uture Order Information Expires on:08/17/2023 Expected by:08/16/2022 Associated Diagnoses R00.2 Palpitations documented in this encounter Plan of Treatment [...] independent and adherent to HEP for greater keno terminal operator management of condition. 2) Pt will have [...] Care has been documented for the patient 08/16/2022 11:09 AM CDT documented as of this encounter Care Teams Pathology Laboratory Aide Relationship Specialty Start Date End Date Catalino Leon DO [address] [place] [address] PCP - General Family Medicine 11/09/18 documented as of this encounter
--- OUTSIDE RECORDS SUMMARY | 2024-10-28 09:22 | XMS_ITS | Encounter Summary ---
Author Organization [facility] Address [address] [place] [address] Phone Care Team Providers Care Clay Pigeon Loader Name Role Phone Kayli Dejesus DO Primary Care Provider +1- [phone] Encounter Details Date Type Department Care Team (Late st Contact Info) Description 06/23/2022 Scanned Document [employer] Business Intelligence Developer Provider, Interface Default Social History Tobacco Use Types Packs/Day Years [...] independent and adherent to HEP for greater nursing home management of condition. 2) Pt will have [...] Care has been documented for the patient 03/09/2022 7:37 AM DIRECTOR OF STRATEGY & MOBILE documented as of this encounter Care Teams Clay Pigeon Loader Relationship Specialty Start Date End Date Kayli Dejesus DO [address] [facility] [place], [place] [address] PCP - General Family Medicine 11/09/18 documented as of this encounter
--- OUTSIDE RECORDS SUMMARY | 2024-10-28 09:22 | XMS_ITS | Encounter Summary ---
Author Organization [facility] Address [address] [place] [address] Phone Care Team Providers Care Cvicu Rn Name Role Phone Kayli Dejesus DO Primary Care Provider +1- [phone] Encounter Details Date Type Department Care Team (Late st Contact Info) Description 09/24/2022 Telephone [facility] [place] [address] Med/Surg [facility] [address] [place], [place] [id number] Jenny Uribe MD [address] [place], [place] [address] Social History Tobacco Use Types Packs/Day Years [...] encounter Miscellaneous Notes * Telephone Encounter - Conchita Javier RN - 09/24/2022 9:57 AM CDT Inpatient Discharge Follow Up Phone Call Note Hospital Discharge Date: 09/21/2022 Readmission Risk Score (RRS):17.2% PCP: Dr. Kayli Dejesus Reason for Hospitalization: Cellulitis Any reason patient has considered coming back in to be seen since discharge: New Medications: Bactrim New Medications in Hand? Any questions about continued home medications? Any missed doses of medications since getting home? Follow up testing: Questions regarding F/U testing: CMP, CBC Verify pt knows location and has transportation for F/U testing: Primary MD: How to contact: Follow Up Appointments: 09/30/2022 - Hospital Follow-up with PCP scheduled. Verify location and transportation: Any reason patient would not be able to make appointment: Any other questions? Attempted to call Patient for recent hospital discharge follow- up and it went to [facility]. Unableto review the above items with the patient. documented in this encounter Plan of Treatment [...] documented as of this encounter Care Teams Cvicu Rn Relationship Specialty Start Date End Date Kayli Dejesus DO [address] [place] [address] [place] [address] PCP - General Family Medicine 11/09/18 documented as of this encounter
--- OUTSIDE RECORDS SUMMARY | 2024-10-28 09:22 | XMS_ITS | Encounter Summary ---
Author Organization [facility] Address [address] [place] [address] Phone Care Team Providers Care Jammer Hooker Name Role Phone WilmersaidaKayli DO Primary Care Provider +1- [phone] Encounter Details Date Type Department Care Team (Late st Contact Info) Description 08/11/2017 Telephone [facility] [address] [place] [address] Drew Westbrook MD Social History Tobacco Use Types Packs/Day [...] encounter Miscellaneous Notes * Telephone Encounter - Ondina Rowe - 08/11/2017 3:11 PM CDT NO RESPONSE TO SCHEDULING ATTEMPTS FINAL LETTER SENT, CANCELING ORDER AND DHI OPTIME FORM documented in this encounter Plan of Treatment Not on file documented as of this encounter Visit Diagnoses Not on filedocumented in this encounter Additional Health Concerns Infection Onset Date Last Indicated Resolved Time Suspected COVID-19 02/25/2021 02/25/2021 12:24 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
--- OUTSIDE RECORDS SUMMARY | 2024-10-28 09:22 | XMS_ITS | Encounter Summary ---
Author Organization [facility] Address [address] [place] [address] Phone Care Team Providers Care Geospatial Scientist Name Role Phone Kayli Dejesus DO Primary Care Provider +1- [phone] Encounter Details Date Type Department Care Team (Late st Contact Info) Description 02/18/2017 Telephone Center Building 3rd Floor Sleep Lab [address] [place] [address] Ranjit Blank, [employer]SEM[employer]ER Social History Tobacco Use Types Packs/Day Years [...] Suspected COVID-19 02/25/2021 02/25/2021 2 12:24 AM WEED THINNER COVID-19 02/25/2021 02/25/2021 03/18/2021 10:0 3 PM WEED THINNER Suspected COVID-19 06/15/2024 06/15/2024 5 4:43 PM CDT Assessment Noted Time A Hypertension Plan of Care has been documented for the patient 12/01/2016 1:56 PM CDT documented as of this encounter Care Teams Geospatial Scientist Relationship Specialty Start Date End Date Kayli Dejesus DO [address] [place] [address] PCP - General Family Medicine 11/09/18 documented as of this encounter
--- OUTSIDE RECORDS SUMMARY | 2024-10-28 09:22 | XMS_ITS | Encounter Summary ---
Author Organization [facility] Address [address] [place] [address] Phone Care Team Providers Care Quality Assurance Inspector Name Role Phone Kayli Dejesus DO Primary Care Provider +1- [phone] Encounter Details Date Type Department Care Team (Late st Contact Info) Description 06/27/2024 Telephone [facility] [address] [place], [place] [id number] Kristen Acosta, BIBI [address] [place], [place] [address] Social History Tobacco Use Types Packs/Day Years [...] from your doctor or pharmacy? Never 05/29/2023 [facility] Utilities Answer Date Recorded [...] a nursing home (including now)? No 01/13/2023 Housing Stability Vital Sign Answer Jono e Recorded In the last 12 months, was t here a time when you were not able to pay the mortgage or rent on time? No 12/18/2023 Number of Times Moved in the Last Year Not on fi le 12/18/2023 [facility] time [facility] were you homeless or living in a nursing home (including now)? No 12/18/2023 Sex and Gender Information Value Date Recorded Sex Assigned at Not on file Legal Sex Male 11:58 AM CDT Gender Identity Not on file Sexual Orientation Not on file documented as of this encounter Miscellaneous Notes * Telephone Encounter - Silvia Murdock - 07/12/2024 9:28 AM CDT Patient is needing to reschedule procedure. * Telephone Encounter - Kimberly Lara - 07/04/2024 10:18 AM CDT Message left at cell number, with [facility] callback number. 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
--- OUTSIDE RECORDS SUMMARY | 2024-10-28 09:22 | XMS_ITS | Clinical Summary ---
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 Most Recently Relevant to Health Maintenance Insurance A[employer]NA COMMERCIAL AETNA COMMERCIAL BLUE CROSS BLUE SHIELD BCBS Cross Blue Shield Commercial (POS, PPO, etc) Address: [address] [place] [address] Advance Directives For more information, please contact: [phone] * Attempt CPR / Full Treatment (Latest Code Status on File) Date Activated Date Inactivated Comments 12/18/2023 9:12 AM 12/20/2023 4:29 PM * Attempt CPR / Full Treatment Date Activated Date Inactivated Comments 05/29/2023 1:18 PM 05/31/2023 2:20 PM * Attempt CPR / Full Treatment Date Activated Date Inactivated Comments 01/13/2023 4:31 PM 01/15/2023 3:42 PM * Attempt CPR / Full Treatment Date Activated Date Inactivated Comments 09/19/2022 3:24 PM 09/21/2022 12:14 PM * Full Code Date Activated Date Inactivated Comments 06/30/2022 1:00 AM 07/01/2022 6:11 PM Care Teams Chlorine Operator Relationship Specialty Start Date End Date Kayli Dejesus DO [address] [place], [place] [address] PCP - General Family Medicine 11/09/18
--- OUTSIDE RECORDS SUMMARY | 2024-10-28 09:22 | XMS_ITS | Encounter Summary ---
Author Organization [facility] Address [address] [place] [address] Phone Care Team Providers Care Outcome Analyst Name Role Phone Kayli Dejesus DO Primary Care Provider +1- [phone] Reason for Visit * Reason Onset Date Comments Appointment Request 10/20/2018 Encounter Details Date Type Department Care Team (Late st Contact Info) Description 10/20/2018 Telephone [facility] [address] [place] [address] Kayli Dejesus DO [address] [place] [address] Appointment Request Social History Tobacco Use Types Packs/Day [...] Miscellaneous Notes * Telephone Encounter - Henna Eddy - 10/20/2018 2:10 PM CDT This candy separator hard attempted to contact pt to schedule 1-3 day f/u from being seen [facility] 10[facility]13[facility]18 for headache. Left message to return call to scheduling center. Kenneth msg sent. If pt returns call, please assist in scheduling with PCP. documented in this encounter Plan of Treatment Not on file documented as of this encounter Visit Diagnoses Not on filedocumented in this encounter Additional Health Concerns Infection Onset Date Last Indicated Resolved Time Suspected COVID-19 02/25/2021 02/25/2021 12:24 AM CATECHIST COVID-19 02/25/2021 02/25/2021 03/18/2021 10:0 3 PM CATECHIST Suspected COVID-19 06/15/2024 06/15/2024 5 4:43 PM CDT Assessment Noted Time A Hypertension Plan of Care has been documented for the patient 06/26/2018 3:26 PM CDT documented as of this encounter Care Teams Outcome Analyst Relationship Specialty Start Date End Date Kayli Dejesus DO [address] [place] [address] PCP - General Family Medicine 11/09/18 documented as of this encounter
--- OUTSIDE RECORDS SUMMARY | 2024-10-28 09:22 | XMS_ITS | Encounter Summary ---
Author Organization [facility] Address [address] [place] [address] Phone Care Team Providers Care Clock And Watch Hands Painter Name Role Phone Kayli Dejesus DO Primary Care Provider +1- [phone] Reason for Referral * - Closed Specialty Diagnoses / Procedures Referred By Contac t Referred To Contact Diagnoses Cough Procedures XR CHEST PA / LAT Emil Tang MD [address] [place] [address] Phone: tel: fax: Referral ID Status Reason Start Date Expiration Date Visits Re quested Visits Authorized [id number] Closed 10/24/2015 1 1 Encounter Details Date Type Department Care Team (Late st Contact Info) Description 10/24/2015 Orders Only [facility] [address], [address] [place], [place] [address] Emil Tang MD [address] [place] [address] Moderate persistent asthma without complication (Primary Dx); Cough; Allergic rhinitis, unspecified allergic rhinitis type; Malaise and fatigue Social History Tobacco Use Types Packs/Day [...] on file documented as of this encounter Results * XR CHEST PA / LAT (10/24/2015 10:27 AM CDT) Anatomical Region Laterality Modality Chest N/A Digital Radiogra phy 10/24/2015 10:2 3 AM CDT Narrative 10/24/2015 10:47 AM CDT Accession Exam Completed Date/Time [id number] XR CHEST PA / LAT 10/24/2015 10:27 Requesting: EMIL TANG R Clinical History: Cough for several weeks Comparison: None. Technique: PA and lateral views of the chest were obtained. Findings: The cardiac silhouette is within normal limits. No focal consolidation, suspicious air space opacity, effusion or pneumothorax is identified. The visualized osseous structures reveal no acute abnormality. Partial visualization is made of postoperative change within the lower cervical spine. There are surgical clips also seen within the right upper quadrant. Impression: No evidence of an acute cardiopulmonary process. Electronically Signed and Authenticated by Clinton Amaya 10/24/2015 10:47 Procedure Note Clinton Amaya, DO - 10/24/2015 Accession Exam CompletedDate/Time [id number] XR CHEST PA / LAT 10/24/201510:27 Requesting: EMIL TANG Clinical History: Cough for several weeks Comparison: None. Technique: PA and lateral views of the chest were obtained. Findings: The cardiac silhouette is within normal limits. No focalconsolidation, suspicious air space opacity, effusion or pneumothorax isidentified. The visualized osseous structures reveal no acute abnormality.Partial visualization is made of postoperative change within the lower cervical spine. There are surgicalclips also seen within the right upper quadrant. Impression: No evidence of an acute cardiopulmonary process. Electronically Signed and Authenticated by Clinton Amaya 10/24/2015 10:47 Emil Tang MD CHEST X-RAY Final Result documented in this encounter Visit Diagnoses Diagnosis Moderate persistent asthma without complication- Primary Unspecified asthma Cough Allergic rhinitis, unspecified allergic rhinitis type Malaise and fatigue Other malaise and fatigue Cough documented in this encounter Additional Health Concerns Infection Onset Date Last Indicated Resolved Time Suspected COVID-19 02/25/2021 02/25/2021 2 12:24 AM FILM TESTS CHECKER COVID-19 02/25/2021 02/25/2021 03/18/2021 10:0 3 PM FILM TESTS CHECKER Suspected COVID-19 06/15/2024 06/15/2024 5 4:43 PM CDT Assessment Noted Time A Hypertension Plan of Care has been documented for the patient 09/08/2015 4:41 PM CDT documented as of this encounter Care Teams Clock And Watch Hands Painter Relationship Specialty Start Date End Date Kayli Dejesus DO [address] [place] [address] PCP - General Family Medicine 11/09/18 documented as of this encounter
--- OUTSIDE RECORDS SUMMARY | 2024-10-28 09:22 | XMS_ITS | Encounter Summary ---
Author Organization [facility] Address [address] [place] [address] Phone Care Team Providers Care Rigger Apprentice Name Role Phone Kayli Dejesus Yaquelin Primary Care Provider +1- [phone] Reason for Visit * Reason Onset Date Comments Information Only 05/28/2022 Encounter Details Date Type Department Care Team (Late st Contact Info) Description 05/28/2022 Telephone [facility] [address] [address] Adi Orosco III, MD [address] [place], [place] [id number] Information Only Social History Tobacco Use Types Packs/Day Years [...] encounter Miscellaneous Notes * Telephone Encounter - Katrin Garcia RN - 05/31/2022 9:38 AM CDT I called pt and reviewed message below from [place], pt verbalizes understanding and agreeable to plan. Will now close this encounter. * Telephone Encounter - Maren Fuentes RN - 05/28/2022 3:[address] Orosco please see pathology report, patient requesting results. Spoke with patient and notified him Dr. Orosco has not reviewed results. Patient verbalizes understanding. * Telephone Encounter - Supriya Powell - 05/28/2022 1:03 PM CDT ----- Message from Chauncey Gandara sent at 05/28/2022 12:13 PM CDT ----- Regarding: Question regarding SURGICAL PATHOLOGY Contact: What do these results mean? * Telephone Encounter - Supriya Powell - 05/28/2022 12:08 PM CDT Patient requesting RN callback regarding lab results. documented in this encounter Plan of Treatment Not on file documented as of this encounter Goals Goal Patient Goal Type Associated Problems Recent Progress Patient-Stated? Author PT R hip Physical Therapy No Litzy House, STEVAN Note: Within 8 weeks (07/22/20): 1) Pt [...] General Goal Physical Therapy No Ree Levy, STEVAN Note: Patient will complete the following goals [...] documented for the patient 03/09/2022 7:37 AM REIMBURSEMENT DIRECTOR documented as of this encounter Care Teams Rigger Apprentice Relationship Specialty Start Date End Date Kayli Dejesus DO [address] [place] [address] PCP - General Family Medicine 11/09/18 documented as of this encounter
[2024-10-28 09:26] VITALS: BP 164/89; PULSE 95; RESP 18; TEMP 38.3; O2SAT 100
--- OUTSIDE RECORDS SUMMARY | 2024-10-28 10:04 | XMS_ITS | Encounter Summary ---
Author Organization [facility] Address [address] [place] [address] Phone Care Team Providers Care Sewing Machinist Name Role Phone Kayli Dejesus DO Primary Care Provider +1- [phone] Encounter Details Date Type Department Care Team (Late st Contact Info) Description 12/04/2020 Orders Only [facility] [address] [place] [address] Kayli Dejesus DO [address] [place] [address] Paresthesia Social History Tobacco Use [...] PM CDT) Vitamin D, 25-Hydroxy, Total (External) [facility] 12/01/2020 12:0 9 PM CDT us Kayli Dejesus DO HEM/CHEM/IMMUN-BLOOD Final Result [facility] [address] [place] [id number], * VITAMIN B12 (12/01/2020 12:09 PM CDT) Vitamin B12 (External) 429 [facility] 12/01/2020 12:0 9 PM CDT us Kayli Dejesus DO HEM/CHEM/IMMUN-BLOOD Final Result Performing Organization Address [facility]/ZIP Co de Phone Number [facility] [address] [place] [address], * GLYCO HB A1C (12/01/2020 12:09 PM CDT) GLYCO HB A1C (External) 5.4 [facility] 12/01/2020 12:0 9 PM CDT us Kayli Dejesus DO HEM/CHEM/IMMUN-BLOOD Final Result Performing Organization Address [facility] Co de Phone Number [facility] [address] [place] [address], documented in this encounter Visit Diagnoses Diagnosis Paresthesia Disturbance of skin sensation documented in this encounter Additional Health Concerns Infection Onset Date Last Indicated Resolved Time Suspected COVID-19 02/25/2021 02/25/2021 2 12:24 AM DECISION SUPPORT ANALYST COVID-19 02/25/2021 02/25/2021 03/18/2021 10:0 3 PM DECISION SUPPORT ANALYST Suspected COVID-19 06/15/2024 06/15/2024 5 4:43 PM CDT Assessment Noted Time A Hypertension Plan of Care has been documented for the patient 12/01/2020 11:06 AM CDT documented as of this encounter Care Teams Sewing Machinist Relationship Specialty Start Date End Date Kayli Dejesus DO [facility] [place] [address] [place] [address] PCP - General Family Medicine 11/09/18 documented as of this encounter
--- OUTSIDE RECORDS SUMMARY | 2024-10-28 10:05 | XMS_ITS | Encounter Summary ---
Author Organization [facility] Address [address] [place] [address] Phone Care Team Providers Care Hearing Aid Assistant Name Role Phone Kayli Dejesus DO Primary Care Provider +1- [phone] Encounter Details Date Type Department Care Team (Late st Contact Info) Description 01/26/2021 Orders Only [facility] [place] [facility] [address] [place], [place] [id number] Joaquin Tang MD [address] [place], [place] [address] Allergic rhinitis, unspecified seasonality, unspecified trigger Social [...] COVID-19? No / Unsure 01/21/2021 2:54 PM PORTRAIT PHOTOGRAPHER documented as of this encounter Plan of [...] and adherent to HEP for greater long chain dyeing machine operator management of condition. 2) Pt will [...] SEAFOOD ALLERGEN PROFILE Routine 01/21/2021 4:03 PM PORTRAIT PHOTOGRAPHER Allergic rhinitis, unspecified seasonality, unspecified trigger NUT ALLERGEN PROFILE Routine 01/21/2021 4:03 PM PORTRAIT PHOTOGRAPHER Allergic rhinitis, unspecified seasonality, unspecified trigger RESPIRATORY PROFILE, REGION 8, [facility], [facility] Routine 01/21/2021 4:03 PM PORTRAIT PHOTOGRAPHER Allergic rhinitis, unspecified seasonality, unspecified trigger documented in this encounter Results * RESPIRATORY PROFILE, REGION 8, [facility], [facility] (01/21/2021 4:03 PM PORTRAIT PHOTOGRAPHER) 01/21/2021 4:03 PM PORTRAIT PHOTOGRAPHER us Joaquin Tang MD REFERENCE BLOOD Final Result [facility] [address] [place] [address], * SEAFOOD ALLERGEN PROFILE (01/21/2021 4:03 PM PORTRAIT PHOTOGRAPHER) 01/21/2021 4:03 PM PORTRAIT PHOTOGRAPHER us Joaquin Tang MD REFERENCE BLOOD Final Result Performing Organization Address [facility]/ZIP Co de Phone Number [facility] [address] [place] [address], [place] * NUT ALLERGEN PROFILE (01/21/2021 4:03 PM PORTRAIT PHOTOGRAPHER) 01/21/2021 4:03 PM PORTRAIT PHOTOGRAPHER us Joaquin Tang MD REFERENCE BLOOD Final Result Performing Organization Address [facility] Co de Phone Number [facility] [address] [place] [address], [place] documented in this encounter Visit Diagnoses Diagnosis Allergic rhinitis, unspecified seasonality, unspecified trigger documented in this encounter Additional Health Concerns Infection Onset Date Last Indicated Resolved Time Suspected COVID-19 02/25/2021 02/25/2021 12:24 AM PORTRAIT PHOTOGRAPHER COVID-19 02/25/2021 02/25/2021 03/18/2021 10:0 3 PM PORTRAIT PHOTOGRAPHER Suspected COVID-19 06/15/2024 06/15/2024 4:43 PM CDT Assessment Noted Time A Hypertension Plan of Care has been documented for the patient 01/19/2021 11:06 AM PORTRAIT PHOTOGRAPHER documented as of this encounter Care Teams Hearing Aid Assistant Relationship Specialty Start Date End Date Kayli Dejesus DO [address] [place] [address] PCP - General Family Medicine 11/09/18 documented as of this encounter
--- OUTSIDE RECORDS SUMMARY | 2024-10-28 10:05 | XMS_ITS | Encounter Summary ---
Author Organization [facility] Address [address] [place] [address] Phone Care Team Providers Care Heel Caser Name Role Phone WilmersaidaKayli DO Primary Care Provider +1- [phone] Encounter Details Date Type Department Care Team (Late st Contact Info) Description 08/11/2017 Telephone [facility] [address] [place] [address] Drew Westbrook MD Social History [...] Time Suspected COVID-19 02/25/2021 02/25/2021 12:24 AM REAL ESTATE SERVICES COORDINATOR COVID-19 02/25/2021 02/25/2021 03/18/2021 10:0 3 PM REAL ESTATE SERVICES COORDINATOR Suspected COVID-19 06/15/2024 06/15/2024 4:43 PM CDT Assessment Noted Time A Hypertension Plan of Care has been documented for the patient 08/05/2017 1:14 PM CDT documented as of this encounter Care Teams Heel Caser Relationship Specialty Start Date End Date Kayli Dejesus DO [address] [place] [address] PCP - General Family Medicine 11/09/18 documented as of this encounter
--- OUTSIDE RECORDS SUMMARY | 2024-10-28 10:05 | XMS_ITS | Encounter Summary ---
Author Organization [facility] Address [address] [place] [address] Phone Care Team Providers Care Resist Coater Developer Name Role Phone Kayli Dejesus DO Primary Care Provider +1- [phone] Reason for Visit * Reason Onset Date Comments Transitional Care Management 06/01/2023 Encounter Details Date Type Department Care Team (Late st Contact Info) Description 06/01/2023 Telephone [facility] [address] [place] [address] Kayli Dejesus DO [address] [place] [address] Transitional Care Management Social History [...] your doctor or pharmacy? Never 05/29/2023 [facility] Utilities Answer Date Recorded In [...] any time in the past 12 m [facility], were you homeless or living in a long term (including now)? No 05/29/2023 Sex and Gender [...] would like to speak with a care sales team manager about, such as medications, doctor appointments, or services? No If patient schedules and questions were answered, please mookie appointment note as [facility] hospital follow up for the reason for [...] would like to speak with a care sales team manager about, such as medications, doctor appointments, or [...] independent and adherent to HEP for greater alf management of condition. 2) Pt will have [...] documented as of this encounter Care Teams Resist Coater Developer Relationship Specialty Start Date End Date Kayli Dejesus DO [facility] [address] PCP - General Family Medicine 11/09/18 documented as of this encounter
--- OUTSIDE RECORDS SUMMARY | 2024-10-28 10:05 | XMS_ITS | Encounter Summary ---
Author Organization [facility] Address [address] [place] [address] Phone Care Team Providers Care Paper Machine Supervisor Name Role Phone Kayli Dejesus DO Primary Care Provider +1- [phone] Encounter Details Date Type Department Care Team (Late st Contact Info) Description 09/24/2022 Telephone [facility] [place] [address] Med/Surg [facility] [address] [place], [place] [id number] Jenny Uribe MD [address] [place], [place] [address] Social History Tobacco Use Types Packs/Day Years [...] discharge follow- up and it went to [facility]. Unableto review the above items with the [...] independent and adherent to HEP for greater longterm management of condition. 2) Pt will have [...] documented as of this encounter Care Teams Paper Machine Supervisor Relationship Specialty Start Date End Date Kayli Dejesus DO [address] [place] [address] [place] [address] PCP - General Family Medicine 11/09/18 documented as of this encounter
--- OUTSIDE RECORDS SUMMARY | 2024-10-28 10:05 | XMS_ITS | Encounter Summary ---
Author Organization [facility] Address [address] [place] [address] Phone Care Team Providers Care Bullet Slug Casting Machine Operator Name Role Phone Catalino Leon DO Primary Care Provider +1- [phone] Reason for Visit * Reason Onset Date Comments Referral 05/27/2020 Encounter Details Date Type Department Care Team (Late st Contact Info) Description 05/27/2020 Telephone [facility] [address] [place] [address] Catalino Leon DO [address] [place] [address] Referral Social History Tobacco Use [...] Suspected COVID-19 02/25/2021 02/25/2021 2 12:24 AM FLASK FITTER COVID-19 02/25/2021 02/25/2021 03/18/2021 10:0 3 PM FLASK FITTER Suspected COVID-19 06/15/2024 06/15/2024 5 4:43 PM CDT Assessment Noted Time A Hypertension Plan of Care has been documented for the patient 05/26/2020 8:37 AM CDT documented as of this encounter Care Teams Bullet Slug Casting Machine Operator Relationship Specialty Start Date End Date Catalino Leon DO [address] [place] [address] PCP - General Family Medicine 11/09/18 documented as of this encounter
--- OUTSIDE RECORDS SUMMARY | 2024-10-28 10:05 | XMS_ITS | Encounter Summary ---
Author Organization [facility] Address [address] [place] [address] Phone Care Team Providers Care Financial Planning Adviser Name Role Phone Catalino Leon DO Primary Care Provider +1- [phone] Reason for Visit * Reason Onset Date Comments Insurance Prior Authorization 08/16/2022 Encounter Details Date Type Department Care Team (Late st Contact Info) Description 08/16/2022 Telephone [facility] [address] [place] [address] Catalino Leon DO [address] [place] [address] Insurance Prior Authorization Social History [...] - 08/17/2022 10:22 AM CDT CPT codes: 54042 - No PA required 77067 - No PA required 86818 - No PA required Per BC/BS automated system Conf #[id number] Routing to Cardiology PSR to schedule. * Telephone Encounter - Kourtney Vizcarra - 08/16/2022 1:00 PM CDT Subscriber: [id number] MISSY GANDARA Rel to sub: 02 - Spouse [id number] Benefit plan: [id number] Group number: [id number] Long wait times * Telephone Encounter - Bia Brar - 08/16/2022 11:42 AM CDT ----- Message from Catalino Leon DO sent at 08/16/2022 11:29 AM CDT ----- Regarding: Order for TIESHA GANDARA [facility] Medicine [address] [place] [address] [place] [address] Patient Name:Tiesha Gandara Date of :1965 Sex:male Telephone Information: Work Phone Not on file. Types of orders made on 08/16/2022 : [facility], Outpatient Referral Order Date and Time:08/16/2022 11:29 AM Ordering User:CATALINO LEON DO [NIARNOLD] Electronically Signed By: Catalino Leon DO [[id number]] Order Specific Information Order: MOBILE CARDIAC TELEMETRY (FORMERLY EVENT RECORDER) [Custom: [id number]] Order #: [id number]: 1 FUTURE Priority: Routine Class: Ancillary Performed [...] and adherent to HEP for greater terminal supervisor management of condition. 2) Pt will [...] documented as of this encounter Care Teams Financial Planning Adviser Relationship Specialty Start Date End Date Catalino Leon DO [address] [place] [address] PCP - General Family Medicine 11/09/18 documented as of this encounter
--- OUTSIDE RECORDS SUMMARY | 2024-10-28 10:05 | XMS_ITS | Encounter Summary ---
Author Organization [facility] Address [address] [place] [address] Phone Care Team Providers Care Career Specialist Name Role Phone Kayli Dejesus DO Primary Care Provider +1- [phone] Reason for Visit * Reason Onset Date Comments Insurance Prior Authorization 03/16/2024 Encounter Details Date Type Department Care Team (Late st Contact Info) Description 03/16/2024 Telephone [facility] [address] [place] [address] Kayli Dejesus DO [address] [place] [address] Insurance Prior Authorization Social History [...] from your doctor or pharmacy? Never 05/29/2023 [facility] Utilities Answer Date Recorded In [...] place to sleep or slept in a halfway (including now)? No 01/13/2023 Housing Stability Vital Sign Answer Jono e Recorded In the last 12 months, was t here a time when you were not able to pay the mortgage or rent on time? No 12/18/2023 Number of Times Moved in the Last Year Not on fi le 12/18/2023 At any time in the past 12 m [facility], were you homeless or living in a halfway (including now)? No 12/18/2023 Sex and Gender [...] to call the GI department to schedule. [phone] R ARBITRATOR * Telephone Encounter - Kourtney Vizcarra - 03/16/2024 9:57 AM CST Order FIBROSCAN - LIVER (Order [id number]) Associated Diagnoses ICD-10-CM ICD-9-CM Elevated liver enzymes - Primary R74.8 790.5 Hepatic steatosis K76.0 571.8 Order Questions Question Answer Release to patient Immediate Diagnosis: NAFLD Lab and Collection FIBROSCAN - LIVER (Order: [id number]) - 03/08/2024 Result Read / Acknowledged No acknowledgement history exists for this order. Future Order Information Expected Expires 03/08/2024 09/05/2024 ABN Status ABN Status CPT Codes 26233 FIBROSCAN - LIVER [[id number]] 1520 Status: Active Ordering user: Kayli Dejesus DO 03/08/24 1520 Ordering provider: Kayli Dejesus DO Authorized by: Kayli Dejesus DO Ordering mode: Standard Frequency: 03/08/24 - Released by: Kayli Dejesus DO 03/08/24 1520 Location Name Address Phone Fax [place] [address] [place] [address] R ARBITRATOR documented in this encounter Plan of Treatment [...] and adherent to HEP for greater terminal gauger supervisor management of condition. 2) Pt will [...] documented for the patient 03/13/2024 1:37 PM LABOR ARBITRATOR documented as of this encounter Care Teams Career Specialist Relationship Specialty Start Date End Date Kayli Dejesus DO [address] [place] [address] PCP - General Family Medicine 11/09/18 documented as of this encounter
--- OUTSIDE RECORDS SUMMARY | 2024-10-28 10:05 | XMS_ITS | Encounter Summary ---
Author Organization [facility] Address [address] [place] [address] Phone Care Team Providers Care Income Tax Administrator Name Role Phone Kayli Dejesus DO Primary Care Provider +1- [phone] Encounter Details Date Type Department Care Team (Late st Contact Info) Description 03/29/2024 Telephone [facility] [address] [place] [address] Nurse, T1g Gastroenterology [address] [place] [id number] Social History Tobacco Use Types Packs/Day Years [...] from your doctor or pharmacy? Never 05/29/2023 [facility] Utilities Answer Date Recorded In the past 12 months has [employer] electric, gas, oil, or water company threatened [...] place to sleep or slept in a intermediate (including now)? No 01/13/2023 Housing Stability Vital Sign Answer Jono e Recorded In the last 12 months, was t here a time when you were not able to pay the mortgage or rent on time? No 12/18/2023 Number of Times Moved in the Last Year Not on fi le 12/18/2023 At any time in the past 12 m [facility], were you homeless or living in a intermediate (including now)? No 12/18/2023 Sex and Gender Information Value Date Recorded Sex Assigned at Not on file Legal Sex Male 11:58 AM CDT Gender Identity Not on file Sexual Orientation Not on file documented as of this encounter Miscellaneous Notes * Telephone Encounter - Therese Angela - 03/29/2024 8:59 AM CST Mcm sent to schedule consult ICER ELEMENT WINDER * Telephone Encounter - Kristen Acosta APRN - 03/29/2024 8:40 AM DE ICER ELEMENT WINDER Any provider. If ERROL Kayli Jones Amber, Alicia or Alden, 60 minutes. Fibroscan already completed. ICER ELEMENT WINDER ICER ELEMENT WINDER * Telephone Encounter - Urszula Turner - 03/29/2024 8:20 AM CST Please review consultation referral. Dx: Fatty liver Referring physician: Oleg Location of notes: chart ICER ELEMENT [facility]INDER documented in this encounter Plan of Treatment [...] independent and adherent to HEP for greater halfway management of condition. 2) Pt will have [...] documented for the patient 03/13/2024 1:37 PM DE ICER ELEMENT WINDER documented as of this encounter Care Teams Income Tax Administrator Relationship Specialty Start Date End Date Kayli Dejesus DO [facility] [place] [address] PCP - General Family Medicine 11/09/18 documented as of this encounter
--- OUTSIDE RECORDS SUMMARY | 2024-10-28 10:05 | XMS_ITS | Encounter Summary ---
Author Organization [facility] Address [address] [place] [address] Phone Care Team Providers Care Credit Support Counselor Name Role Phone Kayli Dejesus DO Primary Care Provider +1- [phone] Encounter Details Date Type Department Care Team (Late st Contact Info) Description 06/23/2022 Scanned Document [employer] Aviation Project Manager Provider, Interface Default Social History Tobacco Use [...] documented for the patient 03/09/2022 7:37 AM MOTION PICTURE EQUIPMENT MACHINIST documented as of this encounter Care Teams Credit Support Counselor Relationship Specialty Start Date End Date Kayli Dejesus DO [address] [facility] [place], [place] [address] PCP - General Family Medicine 11/09/18 documented as of this encounter
--- OUTSIDE RECORDS SUMMARY | 2024-10-28 10:05 | XMS_ITS | Encounter Summary ---
Author Organization [facility] Address [address] [place] [address] Phone Care Team Providers Care Medical Assistant Cardiology Name Role Phone Kayli Dejesus DO Primary Care Provider +1- [phone] Encounter Details Date Type Department Care Team (Late st Contact Info) Description 06/27/2024 Telephone [facility] [address] [place], [place] [id number] Kristen Acosta, BIBI [address] [place], [place] [address] Social History Tobacco Use Types Packs/Day Years [...] your doctor or pharmacy? Never 05/29/2023 [facility] Utilities Answer Date Recorded In the [...] place to sleep or slept in a penitentiary (including now)? No 01/13/2023 Housing Stability Vital Sign Answer Jono e Recorded In the last 12 months, was t here a time when you were not able to pay the mortgage or rent on time? No 12/18/2023 Number of Times Moved in the Last Year Not on fi le 12/18/2023 At any time in the past 12 m [facility], were you homeless or living in a penitentiary (including now)? No 12/18/2023 Sex and Gender [...] CDT Message left at cell number, with [facility] callback number. Snt ltr * Telephone [...] documented for the patient 04/12/2024 10:31 AM ASSISTANT ART DIRECTOR documented as of this encounter Care Teams Medical Assistant Cardiology Relationship Specialty Start Date End Date Kayli Dejesus DO [address] [place] [address] PCP - General Family Medicine 11/09/18 documented as of this encounter
--- OUTSIDE RECORDS SUMMARY | 2024-10-28 10:05 | XMS_ITS | Encounter Summary ---
Author Organization [facility] Address [address] [place] [address] Phone Care Team Providers Care Developer Trading Systems Name Role Phone Kayli Dejesus DO Primary Care Provider +1- [phone] Reason for Visit * Reason Onset Date Comments Appointment Request 10/20/2018 Encounter Details Date Type Department Care Team (Late st Contact Info) Description 10/20/2018 Telephone [facility] [address] [place] [address] Kayli Dejesus DO [address] [place] [address] Appointment Request Social History Tobacco [...] Eddy - 10/20/2018 2:10 PM CDT This refinery pipeline operator attempted to contact pt to schedule 1-3 [...] Time Suspected COVID-19 02/25/2021 02/25/2021 12:24 AM SEASONAL RETAIL MERCHANDISER COVID-19 02/25/2021 02/25/2021 03/18/2021 10:0 3 PM SEASONAL RETAIL MERCHANDISER Suspected COVID-19 06/15/2024 06/15/2024 5 4:43 PM CDT Assessment Noted Time A Hypertension Plan of Care has been documented for the patient 06/26/2018 3:26 PM CDT documented as of this encounter Care Teams Developer Trading Systems Relationship Specialty Start Date End Date Kayli Dejesus DO [address] [place] [address] PCP - General Family Medicine 11/09/18 documented as of this encounter
--- OUTSIDE RECORDS SUMMARY | 2024-10-28 10:05 | XMS_ITS | Encounter Summary ---
Author Organization [facility] Address [address] [place] [address] Phone Care Team Providers Care Appeals Board Referee Name Role Phone Kayli Dejesus DO Primary Care Provider +1- [phone] Reason for Referral * - Closed Specialty Diagnoses / Procedures Referred By Contac t Referred To Contact Diagnoses Bladder outlet obstruction Procedures US BLADDER CHG SONO PELVIS LIMITED Yg Kamara MD [address] [place] [address] Phone: tel: fax: [facility] [address] [place] [id number] Phone: tel: Referral ID Status Reason Start Date Expiration Date Visits Re quested Visits Authorized [id number] Closed 01/24/2023 1 1 MOVER Encounter Details Date Type Department Care Team (Late st Contact Info) Description 01/21/2023 Telephone [facility] Urology [facility] [address] [place] [address] Yg Kamara MD [address] [place] [address] Social History Tobacco Use Types Packs/Day Years Used Date Smoking Tobacco: Never Smokeless Tobacco: Never Alcohol Use Standard Drinks/Week Comments Never 0 (1 standard drink = 0.6 oz pur e alcohol) [facility] Utilities Answer Date Recorded In the [...] place to sleep or slept in a fdc (including now)? No 01/13/2023 Sex and Gender Information Value Date Recorded Sex Assigned at Not on file Legal Sex Male 11:58 AM CDT Gender Identity Not on file Sexual Orientation Not on file documented as of this encounter Miscellaneous Notes * Telephone Encounter - Eryn Padgett RN - 01/25/2023 8:53 AM CST Left message for patient to return call to nurse and [employer] message sent to patient regarding below encounter per Dr. Kamara. MOVER * Telephone Encounter - gY Kamara MD - 01/24/2023 5:56 PM CST [...] for urgent cancers. Let him know that [facility] likely has openings and theirUrology Department and can likely see him sooner. It may be helpful for him to have a 2nd opinion as well. MOVER * Telephone Encounter - Indigo Blanco RN [...] him sooner than first available. Thank you MOVER * Telephone Encounter - Aleksandar Lawler - [...] determine f/u timeline. Please advise. Thank you. MOVER documented in this encounter Plan of Treatment [...] independent and adherent to HEP for greater care home management of condition. 2) Pt will [...] Results * US BLADDER (01/26/2023 10:02 AM LINE MOVER) Anatomical Region Laterality Modality Pelvis N/A Ultrasound 01/26/2023 8:35 AM LINE MOVER Narrative 01/26/2023 11:10 AM LINE MOVER Accession Exam Completed Date/Time [id number] US BLADDER 01/26/2023 10:02 Requesting: YG KAMARA [...] Worrell MD - 01/26/2023 Accession Exam CompletedDate/Time [id number] US BLADDER 310:02 Requesting: YG KAMARA EXAM: [...] documented for the patient 01/20/2023 2:55 PM LINE MOVER documented as of this encounter Care Teams Appeals Board Referee Relationship Specialty Start Date End Date Kayli Dejesus DO [address] [place] [address] PCP - General Family Medicine 11/09/18 documented as of this encounter
--- OUTSIDE RECORDS SUMMARY | 2024-10-28 10:05 | XMS_ITS | Encounter Summary ---
Author Organization [facility] Address [address] [place] [address] Phone Care Team Providers Care Industrial Maintenance Repairer Name Role Phone Kayli Dejesus DO Primary Care Provider +1- [phone] Reason for Referral * Generic Med Auth - Closed Specialty Diagnoses / Procedures Referred By Contindia t Referred To Contact Diagnoses Hyperlipidemia, unspecified hyperlipidemia type Procedures AMB MEDICATION AUTHORIZATION REQUIRED Kayli Dejesus DO [address] [place] [address] Phone: tel: fax: Referral ID Status Reason Start Date Expiration Date Visits Re quested Visits Authorized [id number] Closed 10/05/2023 1 1 Reason for Visit * Reason Onset Date Comments Insurance Prior Authorization 10/04/2023 Fl uvastatin 20 mg capsule Encounter Details Date Type Department Care Team (Late st Contact Info) Description 10/04/2023 Telephone [facility] [address] [place] [address] Kayli Dejesus DO [address] [place] [address] Insurance Prior Authorization (Fluvastatin 20 mg capsule ) Social History Tobacco Use Types Packs/Day Years Used Date Smoking Tobacco: Never Passive Smoke Exposure: Never Smokeless Tobacco: Never Alcohol Use Standard Drinks/Week Comments Never 0 (1 standard drink = 0.6 oz pur e alcohol) [address] [place] [address] Literacy Answer Date Recor ded How often do you need to hav e someone help you when you read instructions, pamphlets, or other written material from your doctor or pharmacy? Never 05/29/2023 [facility] Utilities Answer Date Recorded In the [...] time in the past 12 m [facility], were you homeless or living in a snf (including now)? No 05/29/2023 Sex and Gender [...] & PORTAL USED (IF ANY) BCBS / [employer] [facility] [employer] AUTH / KIM # [id number] MEDICATION Fluvastatin 20 mg capsule DATE RANGE 09/07/2023 - 10/06/2024 REFERENCE # OR SNIP SEE SNIP BELOW [facility] [phone] & M WITH MEDICATION APPROVAL INFO * [...] independent and adherent to HEP for greater intermediate project manager management of condition. 2) Pt will have [...] documented as of this encounter Care Teams Industrial Maintenance Repairer Relationship Specialty Start Date End Date Kayli Dejesus DO [address] [place], [place] [id number] PCP - General Family Medicine 11/09/18 documented as of this encounter
--- OUTSIDE RECORDS SUMMARY | 2024-10-28 10:05 | XMS_ITS | Encounter Summary ---
Author Organization [facility] Address [address] [place] [address] Phone Care Team Providers Care Tap Out Operator Name Role Phone Kayli Dejesus DO Primary Care Provider +1- [phone] Reason for Visit * Reason Onset Date Comments Medication Problem 09/22/2023 Repeat Call 09/22/2023 Encounter Details Date Type Department Care Team (Late st Contact Info) Description 09/22/2023 Telephone [facility] [address] [place] [address] Kayli Dejesus DO [address] [place] [address] Medication Problem; Repeat Call Social History [...] from your doctor or pharmacy? Never 05/29/2023 [facility] Utilities Answer Date Recorded In the past [...] in a detention (including now)? No 01/13/2023 Housing Stability Vital Sign Answer Jono e Recorded In the last 12 months, was t here a time when you were not able to pay the mortgage or rent on time? No 05/29/2023 Number of Times Moved in the Last Year Not on fi le 05/29/2023 At any time in the past 12 m [facility], were you homeless or living in a detention (including now)? No 05/29/2023 Sex and Gender Information Value Date Recorded Sex Assigned at Not on file Legal Sex Male 11:58 AM CDT Gender Identity Not on file Sexual Orientation Not on file documented as of this encounter Miscellaneous Notes * Telephone Encounter - Kayli Dejesus DO - 09/22/2023 3:35 PM CDT [...] PM CDT ..pt returning the nurse???s call. psych specialist was unable to reach the RN on extension [phone] or [phone] at this time. Chauncey can best be reached at [phone] number * Telephone Encounter - Diya James [...] he is taking it. Per [facility] wouldbe approx $14.92 for #60 of the 7.5mg. will discuss further with pt and then with pharmacy on how to proceed. * Telephone Encounter - Emma Krueger - 09/22/2023 12:08 PM CDT Belle from [facility] pharmacy is calling to confirm Buspirone medication for patient. Pharmacy number is [phone] Belle states insurance won't cover the Buspirone 7.5 mg twice a day but will cover Buspirone 15 mgonce daily.. documented in this encounter Plan of Treatment Not on file documented as of this encounter Goals Goal Patient Goal Type Associated Problems Recent Progress Patient-Stated? Author PT R hip Physical Therapy Ltizy Nice PT Note: Within 8 weeks (07/22/20): [...] independent and adherent to HEP for greater exterminator management of condition. 2) Pt will [...] documented as of this encounter Care Teams Tap Out Operator Relationship Specialty Start Date End Date Kayli Dejesus DO [address] [place] [address] PCP - General Family Medicine 11/09/18 documented as of this encounter
--- OUTSIDE RECORDS SUMMARY | 2024-10-28 10:05 | XMS_ITS | Encounter Summary ---
Author Organization [facility] Address [address] [place] [address] Phone Care Team Providers Care Supervisor Car And Yard Name Role Phone Kayli Dejesus DO Primary Care Provider +1- [phone] Encounter Details Date Type Department Care Team (Late st Contact Info) Description 06/03/2023 Telephone [facility] 2nd Floor [address] [place], [place] [id number] Nurse, T[facility]cl [address] [place], [place] [address] Social History Tobacco Use Types Packs/Day Years [...] from your doctor or pharmacy? Never 05/29/2023 [facility] Utilities Answer Date Recorded In the past 12 months has e electric, gas, oil, or water [employer] threatened to shut off services in your [...] place to sleep or slept in a skilled nursing (including now)? No 01/13/2023 Housing Stability Vital Sign Answer Jono e Recorded In the last 12 months, was t here a time when you were not able to pay the mortgage or rent on time? No 05/29/2023 Number of Times Moved in the Last Year Not on fi le 05/29/2023 At any time in the past 12 m [facility], were you homeless or living in a skilled nursing (including now)? No 05/29/2023 Sex and Gender [...] Order for TIESHA GANDARA Jason Aaron, MD ([phone]) Sent: TueJune 02, 2023 4:32 PM To: P [facility] Rn Message Order Specific Information Order: TRANSITIONAL CARE CLINIC REQUEST [Custom: [id number]] Order #: [id number]: 1 Priority: Routine Released on: 06/02/2023 4:32 [...] as of this encounter Care Teams Supervisor Car And Yard Relationship Specialty Start Date End Date Kayli Dejesus DO [address] [place] [address] PCP - General Family Medicine 11/09/18 documented as of this encounter
--- OUTSIDE RECORDS SUMMARY | 2024-10-28 10:05 | XMS_ITS | Encounter Summary ---
Author Organization [facility] Address [address] [place] [address] Phone Care Team Providers Care Depositing Machine Operator Name Role Phone Kayli Dejesus DO Primary Care Provider +1- [phone] Reason for Visit * Reason Onset Date Comments Refill Request 07/23/2019 Encounter Details Date Type Department Care Team (Late st Contact Info) Description 07/23/2019 Refill [facility] [address] [place] [address] Kayli Dejesus DO [address] [place] [address] Refill Request Social History Tobacco [...] Suspected COVID-19 02/25/2021 02/25/2021 2 12:24 AM INTELLIGENCE SUPPORT OFFICER COVID-19 02/25/2021 02/25/2021 03/18/2021 10:0 3 PM INTELLIGENCE SUPPORT OFFICER Suspected COVID-19 06/15/2024 06/15/2024 5 4:43 PM CDT Assessment Noted Time A Hypertension Plan of Care has been documented for the patient 01/08/2019 11:10 AM INTELLIGENCE SUPPORT OFFICER documented as of this encounter Care Teams Depositing Machine Operator Relationship Specialty Start Date End Date Kayli Dejesus DO [facility] [address] [facility] [address] PCP - General Family Medicine 11/09/18 documented as of this encounter
--- OUTSIDE RECORDS SUMMARY | 2024-10-28 10:05 | XMS_ITS | Encounter Summary ---
Author Organization [facility] Address [address] [place] [address] Phone Care Team Providers Care Thermodynamics Engineer Name Role Phone Kayli Dejesus DO Primary Care Provider +1- [phone] Encounter Details Date Type Department Care Team (Late st Contact Info) Description 03/01/2024 Results Only [facility] Oncology [facility] Breast [place] [address] [place], [place] [id number] Sarai Medrano MD [address] [place], [place] [address] Social History Tobacco Use Types Packs/Day Years [...] doctor or pharmacy? Never 05/29/2023 [facility] Utilities Answer Date Recorded In the [...] a group home (including now)? No 01/13/2023 Housing Stability [...] were you homeless or living in a group home (including now)? No 12/18/2023 Sex and [...] and adherent to HEP for greater senior living management of condition. 2) Pt will have [...] documented for the patient 01/16/2024 10:37 AM RIPSAWYER documented as of this encounter Care Teams Thermodynamics Engineer Relationship Specialty Start Date End Date Kayli Dejesus DO [address] [place], [place] [id number] PCP - General Family Medicine 11/09/18 documented as of this encounter
--- OUTSIDE RECORDS SUMMARY | 2024-10-28 10:05 | XMS_ITS | Encounter Summary ---
Author Organization [facility] Address [address] [place] [address] Phone Care Team Providers Care Motion Picture Set Grip Name Role Phone Kayli Dejesus DO Primary Care Provider +1- [phone] Encounter Details Date Type Department Care Team (Late st Contact Info) Description 02/18/2017 Telephone Center Building 3rd Floor Sleep Lab [address] [place] [address] Ranjit Blank, GUIDE DELEGATE Social History Tobacco Use Types Packs/Day Years [...] Suspected COVID-19 02/25/2021 02/25/2021 2 12:24 AM WELDER/FABRICATOR COVID-19 02/25/2021 02/25/2021 03/18/2021 10:0 3 PM WELDER/FABRICATOR Suspected COVID-19 06/15/2024 06/15/2024 5 4:43 PM CDT Assessment Noted Time A Hypertension Plan of Care has been documented for the patient 12/01/2016 1:56 PM CDT documented as of this encounter Care Teams Motion Picture Set Grip Relationship Specialty Start Date End Date Kayli Dejesus DO [address] [place] [address] PCP - General Family Medicine 11/09/18 documented as of this encounter
--- OUTSIDE RECORDS SUMMARY | 2024-10-28 10:05 | XMS_ITS | Encounter Summary ---
Author Organization [facility] Address [address] [place] [address] Phone Care Team Providers Care Order Builder Loader Name Role Phone Wilmersaida Kayli Jamison DO Primary Care Provider +1- [phone] Encounter Details Date Type Department Care Team (Late st Contact Info) Description 08/08/2020 Telephone [facility] [address] [place] [address] Kishor Castrejon MD Social History Tobacco [...] and adherent to HEP for greater terminal operator management of condition. 2) Pt [...] Suspected COVID-19 02/25/2021 02/25/2021 2 12:24 AM FURNITURE FINISHER HELPER COVID-19 02/25/2021 02/25/2021 03/18/2021 10:0 3 PM FURNITURE FINISHER HELPER Suspected COVID-19 06/15/2024 06/15/2024 5 4:43 PM CDT Assessment Noted Time A Hypertension Plan of Care has been documented for the patient 07/14/2020 8:17 AM CDT documented as of this encounter Care Teams Order Builder Loader Relationship Specialty Start Date End Date Kayli Dejesus DO [address] [place] [address] PCP - General Family Medicine 11/09/18 documented as of this encounter
--- OUTSIDE RECORDS SUMMARY | 2024-10-28 10:05 | XMS_ITS | Encounter Summary ---
Author Organization [facility] Address [address] [place] [address] Phone Care Team Providers Care Dance Teacher Name Role Phone Kayli Dejesus DO Primary Care Provider +1- [phone] Reason for Visit * Reason Onset Date Comments ER F/U 02/27/2024 Encounter Details Date Type Department Care Team (Late st Contact Info) Description 02/27/2024 Telephone [facility] [address] [place] [address] Kayli Dejesus DO [address] [place] [address] ER F/U Social History Tobacco [...] doctor or pharmacy? Never 05/29/2023 [facility] Utilities Answer Date Recorded In the [...] any time in the past 12 m [facility], were you homeless or living in a [...] call back and schedule ED follow up T COIL WINDER * Telephone Encounter - Suki Ernandez - 02/27/2024 8:44 AM CST First attempt, LMTCB If call is returned, please assist with scheduling an ED follow up visit per below order T COIL WINDER * Telephone Encounter - Suki Ernandez - 02/27/2024 8:44 AM CST ----- Message from Grayson Peters sent at 02/25/2024 12:36 AM LIGHT COIL WINDER ----- Regarding: Order for TIESHA GANDARA Order Specific Information Order: FLORENCIO FOLLOW UP APPOINTMENT [Custom: [id number]] Order #: [id number]: 1 Priority: Routine Class: Normal(N) Provider/Service to follow up with -> PCP Type of appointment -> ED Follow up When does appointment need to be scheduled -> 2-3 days Reason for test/appointment -> back pain, leg swelling T COIL WINDER documented in this encounter Plan of [...] independent and adherent to HEP for greater sexual assault counsellor management of condition. 2) Pt will have [...] documented for the patient 01/16/2024 10:37 AM LIGHT COIL WINDER documented as of this encounter Care Teams Dance Teacher Relationship Specialty Start Date End Date Kayli Dejesus DO [facility] [place] [address] PCP - General Family Medicine 11/09/18 documented as of this encounter
--- OUTSIDE RECORDS SUMMARY | 2024-10-28 10:05 | XMS_ITS | Encounter Summary ---
Author Organization [facility] Address [address] [place] [address] Phone Care Team Providers Care Ware Dresser Name Role Phone Kayli Dejesus DO Primary Care Provider +1- [phone] Reason for Referral * - Closed Specialty Diagnoses / Procedures Referred By Contac t Referred To Contact Diagnoses Cough Procedures XR CHEST PA / LAT Emil Tang MD [address] [place] [address] Phone: tel: fax: Referral ID Status Reason Start Date Expiration Date Visits Re quested Visits Authorized [id number] Closed 10/24/2015 1 1 Encounter Details Date Type Department Care Team (Late st Contact Info) Description 10/24/2015 Orders Only [facility] [address], [address] [place], [place] [address] Emil Tang MD [address] [place] [address] Moderate persistent asthma without complication [...] 10:47 AM CDT Accession Exam Completed Date/Time [id number] XR CHEST PA / LAT 10/24/2015 10:27 [...] Amaya, DO - 10/24/2015 Accession Exam CompletedDate/Time [id number] XR CHEST PA / LAT 10/24/201510:27 Requesting: [...] Suspected COVID-19 02/25/2021 02/25/2021 2 12:24 AM CLOTH BALER COVID-19 02/25/2021 02/25/2021 03/18/2021 10:0 3 PM CLOTH BALER Suspected COVID-19 06/15/2024 06/15/2024 5 4:43 PM CDT Assessment Noted Time A Hypertension Plan of Care has been documented for the patient 09/08/2015 4:41 PM CDT documented as of this encounter Care Teams Ware Dresser Relationship Specialty Start Date End Date Kayli Dejesus DO [address] [place] [address] PCP - General Family Medicine 11/09/18 documented as of this encounter
--- OUTSIDE RECORDS SUMMARY | 2024-10-28 10:05 | XMS_ITS | Encounter Summary ---
Author Organization [facility] Address [address] [place] [address] Phone Care Team Providers Care Rock Climbing Instructor Name Role Phone Kayli Dejesus DO Primary Care Provider +1- [phone] Encounter Details Date Type Department Care Team (Late st Contact Info) Description 12/07/2023 Telephone [facility] [address] [place], [place] [id number] Patricia Jones MD [address] [place] [address] Social History Tobacco Use Types [...] from your doctor or pharmacy? Never 05/29/2023 [facility] Utilities Answer Date Recorded In the [...] place to sleep or slept in a alf (including now)? No 01/13/2023 Housing Stability Vital Sign Answer Jono e Recorded In the last 12 months, was t here a time when you were not able to pay the mortgage or rent on time? No 05/29/2023 Number of Times Moved in the Last Year Not on fi le 05/29/2023 At any time in the past 12 m [facility], were you homeless or living in a alf (including now)? No 05/29/2023 Sex and Gender Information Value Date Recorded Sex Assigned at Not on file Legal Sex Male 11:58 AM CDT Gender Identity Not on file Sexual Orientation Not on file documented as of this encounter Miscellaneous Notes * Telephone Encounter - Franky Toro - 12/07/2023 1:53 PM CDT Called [facility] labs and requested PT's lab results. Labs should be faxed today. 11/3023. * Telephone Encounter - Brea Glass RN - 12/07/2023 11:11 AM CDT Routing to PSR Per Dr Salazar, Please obtain lab records from [facility]. * Telephone Encounter - Remington Salazar, Patricia [...] independent and adherent to HEP for greater studio couch frame builder management of condition. 2) Pt will have [...] documented as of this encounter Care Teams Rock Climbing Instructor Relationship Specialty Start Date End Date Kayli Dejesus DO [address] [place] [address] PCP - General Family Medicine 11/09/18 documented as of this encounter
--- OUTSIDE RECORDS SUMMARY | 2024-10-28 10:05 | XMS_ITS | Encounter Summary ---
Author Organization [facility] Address [address] [place] [address] Phone Care Team Providers Care General Duty Nurse Name Role Phone Kayli Dejesus DO Primary Care Provider +1- [phone] Encounter Details Date Type Department Care Team (Late st Contact Info) Description 01/03/2024 Orders Only [facility] [address] [place] [address] Janene Jacobsen PA [address] [place] [address] Other fatigue Social History Tobacco [...] from your doctor or pharmacy? Never 05/29/2023 [facility] Utilities Answer Date Recorded In the [...] place to sleep or slept in a jail (including now)? No 01/13/2023 Housing Stability Vital [...] were you homeless or living in a jail (including now)? No 12/18/2023 Sex and Gender [...] Comments CBC W/DIFF Routine 12/16/2023 10:24 AM DOPE FIRER Other fatigue TSH Routine 12/16/2023 10:24 AM DOPE FIRER Other fatigue documented in this encounter Results * CBC W/DIFF (12/16/2023 10:24 AM DOPE FIRER) WBC (EXTERNAL) 5.5 EXTERNAL LAB RBC (EXTERNAL) [...] 11 EXTERNAL LAB 12/16/2023 10:2 4 AM DOPE FIRER Janene MCGOVERN HEM/CHEM/IMMUN-BLOOD Final Resul t EXTERNAL LAB * TSH (12/16/2023 10:24 AM DOPE FIRER) TSH (External) 1.78 EXTERNAL LAB 12/16/2023 10:2 4 AM DOPE FIRER Janene MCGOVERN HEM/CHEM/IMMUN-BLOOD Final Resul t EXTERNAL LAB documented in this encounter Visit Diagnoses Diagnosis Other fatigue documented in this encounter Additional Health Concerns Infection Onset Date Last Indicated Resolved Time Suspected COVID-19 06/15/2024 06/15/2024 4:43 PM CDT Assessment Noted Time A Hypertension Plan of Care has been documented for the patient 12/14/2023 2:03 PM DOPE FIRER documented as of this encounter Care Teams General Duty Nurse Relationship Specialty Start Date End Date Kayli Dejesus DO [address] [place] [address] [place] [address] PCP - General Family Medicine 11/09/18 documented as of this encounter
--- OUTSIDE RECORDS SUMMARY | 2024-10-28 10:05 | XMS_ITS | Clinical Summary ---
Author Organization [facility] Address [address] [place] [address] Phone Care Team Providers Care Hazardous Waste Management Specialist Name Role Phone Wilmersaida Kayli Jamison DO Primary Care Provider +1- [phone] Allergies Active Allergy Reactions Criticality Noted Date [...] stable Assessment & Plan (12/16/2023 11:58 AM RECREATION INSTRUCTOR): Stable. He still has palpitation so I am going to him to take an extra dose of metoprolol extended release for breakthrough episodes of palpitations. PAC (premature atrial contraction) 12/16/2023 Assessment & Plan (06/13/2024 2:41 PM CDT): Controlled. Palpitations are stable. History of pulmonary embolism 12/16/2023 Assessment & Plan (06/13/2024 2:41 PM CDT): No recurrent events. Assessment & Plan (12/16/2023 11:58 AM RECREATION INSTRUCTOR): No recurrent events. It appears to be unprovoked so he will continue long-term anticoagulation. Chronic anticoagulation 12/16/2023 Assessment & Plan (06/13/2024 2:41 PM CDT): Continue apixaban 5 mg b.i.d. Assessment & Plan (12/16/2023 11:58 AM RECREATION INSTRUCTOR): No bleeding complications. Migraine without aura and [...] Description 10/03/2024 10:20 AM CDT Office Visit [address] [address] Philly Marmolejo DO Thobe, Bradley Joseph, MD Acute viral syndrome (Primary Dx); Chest heaviness 07/30/2024 11:40 AM CDT Office Visit [facility] Pulmonary [address] [place] [address] Brown Aggarwal MD Moderate persistent asthma with [...] from your doctor or pharmacy? Never 05/29/2023 [facility] Utilities Answer Date Recorded In [...] any time in the past 12 m [facility], were you homeless or living in [...] independent and adherent to HEP for greater terminologist management of condition. 2) Pt will have [...] this currently. Medical Devices Implanted Type Area Candle Wicker Device Identifier Shelf Expiration Date Model / Serial / Lot Gall Bladder Removal Description:Early 1999 C 5-6 Fusion Description:Early 1999, seen on CT Fracture Fixation Right: Hand Description:Right index fing er fx fixation Explanted Type Area Candle Wicker Device Identifier Shelf Expiration Date Model / Serial / Lot Filter Venacava Sherri Patterson 8.4fr - [id number] Implanted:Qty: 1 on 01/13/2023 by eTmi Harris MD at [facility] LOCATION Explanted:Qty: 1 on 03/25/2023 by Temi Harris MD at [facility] LOCATION VENA CAVA FILTER 10/07/2025 [id number] / / [id number] Procedures Procedure Name Priority Date/Time Associated Diagnosis [...] ECG 12 LEAD (10/03/2024 12:01 PM CDT) [facility] REPORT COMPONENT Study Date: 10/03/2024 Confirmation [...] ELBERT LESLIE Confirmed By: JOSUÉ GAMING MD [facility] 10/03/2024 12:0 1 PM CDT Elbert Leslie MD [facility] Aletha l Result Performing Organization Address [facility] [place] [address], * TROPONIN, HIGH SENSITIVITY (10/03/2024 11:28 AM CDT) [facility] TROPONIN, HIGH SENSITIVITY <3 0 - 4 ng/L [facility] Comment: Refer to the High Sensitivity Troponin Algorithm for interpretation and risk stratification guidelines. [facility], [address] [place] [address] 10/03/2024 11:2 8 AM CDT 10/03/2024 11:33 AM CDT Elbert Leslie MD HEM/CHEM/IMMUN-BLOOD Fin al Result Performing Organization Address [facility]/ZIP Co de Phone Number [facility] [address] [place] [address], * C-REACTIVE PROTEIN (10/03/2024 11:28 AM CDT) [facility] C-REACTIVE PROTEIN 0.29 0.00 - 0.50 mg/dL [facility] Comment:[facility], [address] [place] [address] 10/03/2024 11:2 8 AM CDT 10/03/2024 11:33 AM CDT us Elbert Leslie MD HEM/CHEM/IMMUN-BLOOD Fin al Result [facility] [address] [place] [address], [place] * CBC W/DIFF (10/03/2024 11:28 AM CDT) WBC 4.45 4.00 - 11.00 10*3/uL [facility] RBC 5.25 4.10 - 5.70 10*6/uL [facility] HGB 15.9 12.0 - 18.0 g/dL [facility] HCT 46.0 37.0 - 51.0 % [facility] MCV 87.6 80.0 - 100.0 [facility] LABORATORY MCH 30.3 27.0 - 33.0 pg [facility] MCHC 34.6 32.0 - 36.0 g/dL [facility] RDW 12.3 12.0 - 15.0 % [facility] RDW-SD 39.1 36.7 - 46.1 [facility] LABORATORY PLATELET 187 140 - 400 10*3/uL [facility] MPV 9.1 9.0 - 12.0 [facility] LABORATORY SEG 56.9 % [facility] LYMPHOCYTE 29.2 % [facility] MONOCYTE 9.9 % [facility] EOSINOPHIL 3.4 % [facility] BASOPHIL 0.4 % [facility] IMMATURE GRANULOCYTE 0.2 % [facility] ABSOLUTE NEUTR 2.53 1.60 - 7.70 10*3/uL [facility] ABSOLUTE LYMPH 1.30 1.00 - 4.90 10*3/uL [facility] ABSOLUTE MONO 0.44 0.00 - 1.10 10*3/uL [facility] ABSOLUTE EOS 0.15 0.00 - 0.50 10*3/uL [facility] ABSOLUTE BASO 0.02 0.01 - 0.20 10*3/uL [facility] ABSOLUTE IMMATURE GRANULOCYTE 0.01 0.00 - 0.09 10*3/uL [facility] Comment:[facility], [address] [place] [address] 10/03/2024 11:2 8 AM CDT 10/03/2024 11:33 AM CDT us Elbert Leslie MD HEM/CHEM/IMMUN-BLOOD Fin al Result [facility] [address] [place] [address], * (ABNORMAL) COMPREHENSIVE METABOLIC PANEL (10/03/2024 11:28 AM CDT) CALCIUM 9.0 8.9 - 10.6 mg/dL [facility] GLUCOSE 103(H) 74 - 100 mg/dL [facility] BUN 17 8 - 26 mg/dL [facility] CREATININE 1.13 0.70 - 1.30 mg/dL [facility] TOTAL PROTEIN 7.5 6.0 - 8.0 g/dL [facility] ALBUMIN 3.7 3.5 - 5.0 g/dL [facility] BILIRUBIN, TOTAL 1.4(H) 0.2 - 1.2 mg/dL [facility] AST 29 9 - 43 U/L [facility] ALT 41 0 - 45 U/L [facility] ALKALINE PHOSPHATASE 61 40 - 150 U/L [facility] SODIUM 140 136 - 145 mmol/L [facility] POTASSIUM 4.2 3.5 - 5.1 mmol/L [facility] CHLORIDE 109(H) 98 - 107 mmol/L [facility] CO2 27.0 22.0 - 29.0 mmol/L [facility] GFR: CKD-EPI 2020 CREAT 76 arbitrary unit [facility] Comment: eGFR of 90 or higher [...] for the assessment of chronic kidney disease. [facility], [address] [place] [address] 10/03/2024 11:2 8 AM CDT 10/03/2024 11:33 AM CDT Elbert Leslie MD HEM/CHEM/IMMUN-BLOOD Fin al Result Performing Organization Address [facility]/ZIP Co de Phone Number [facility] [address] [place] [address], [place] * PHOSPHORUS (10/03/2024 11:28 AM CDT) PHOSPHORUS 2.7 2.5 - 4.5 mg/dL [facility] Comment:[facility], [address] [place] [address] 10/03/2024 11:2 8 AM CDT 10/03/2024 11:33 AM CDT Elbert Leslie MD HEM/CHEM/IMMUN-BLOOD Fin al Result Performing Organization Address [facility] Co de Phone Number [facility] [address] [place] [address], [place] * MAGNESIUM (10/03/2024 11:28 AM CDT) MAGNESIUM 1.8 1.6 - 2.6 mg/dL [facility] Comment:[facility], [address] [place] [address] 10/03/2024 11:2 8 AM CDT 10/03/2024 11:33 AM CDT Elbert Leslie MD HEM/CHEM/IMMUN-BLOOD Fin al Result Performing Organization Address [facility]/ZIP Co de Phone Number [facility] [address] [place] [address], [place] * COVID-19, POC (10/03/2024 11:02 AM CDT) Pathologist [facility] COVID-19, POC NEGATIVE [facility] Comment: Negative results should be treated [...] consistent with COVID-19. COVID-19 SOURCE Nasal Swab [facility] Comment:[facility], [address] [place] [address] SWAB OF INTERNAL NOSE / Unknown 10/03/2024 11:02 AM CDT 10/03/2024 11:12 AM CDT us Elbert Leslie MD HEM/CHEM/QNOTJ-TWA-SHKMN Final Result Performing Organization Address [facility]/ZIP Co de Phone Number [facility] [address] [place] [address], * PSA, DIAGNOSTIC (06/07/2024 9:49 AM CDT) [facility] PSA, DIAGNOSTIC 0.89 0.00 - 3.50 ng/mL [facility] Comment:[facility], [address] [place] [address] 06/07/2024 9:49 AM CDT 06/07/2024 4:03 PM CDT us Yg Kamara MD HEM/CHEM/IMMUN-BLOOD Final Resul t Performing Organization Address [facility]/ZIP Co de Phone Number [facility] [address] [place] [address], * (ABNORMAL) LIPID PANEL (05/30/2023 7:22 AM CDT) [facility] CHOLESTEROL, TOTAL 198 0 - 200 mg/dL [facility] Comment: Child Range (mg/dL) : Desirable < 170 Borderline 170 to 199 High >= 200 Adult Range: Desirable < 200 Borderline 200 to 239 High >= 240 TRIGLYCERIDES 101 <150 mg/dL [facility] Comment: Normal < 150 Borderline High 150 to 199 High 200 to 499 Very High >= 500 The National Cholesterol Education Program (NCEP) Adult Treatment Panel III Report recommends the classification shown above. Laboratories should follow recommendations for lipid ranges effective in their locale if they differ from those of the NCEP. HDL CHOLESTEROL 33(L) 40 - 60 mg/dL [facility] Comment: The National Cholesterol Education Program (NCEP) recommends using fasting specimens for a lipoprotein profile. If the specimen is nonfasting, only the values for total cholesterol and HDL cholesterol are usable. LDL CHOLESTEROL >130 <100 mg/dL [facility] Comment:[facility], [address] [place] [address] 05/30/2023 7:22 AM CDT 05/30/2023 8:00 AM CDT us Pancho Mcgovern MD HEM/CHEM/IMMUN-BLOOD Final Resu lt [facility] [address] [place] [address], [place] * COLONOSCOPY (07/15/2020 11:24 AM CDT) REPORT COMPONENT Attending MD: Yudy De La Rosa MD Procedure: Colonoscopy [facility] REPORT COMPONENT Findings: A 3 mm polyp was found in the ascending colon. The polyp was semi-sessile. The polyp was removed with a cold snare. Resection and retrieval were complete. Two hyperplastic polyps were found in the rectum. The polyps were 2 to 3 mm in size. These polyps were removed with a cold biopsy forceps. Resection and retrieval were complete. [facility] REPORT COMPONENT Recommendation: - Biopsy results will be available online on [employer]. My office will contact you regarding pathology [...] discharge patient to home with an escort. [facility] Anatomical Region Laterality Modality Other 07/15/2020 11:2 [...] bowel preparation was evaluated using the BBPS ([place] Bowel Preparation Scale) with scores of: Right [...] Rosa MD Procedure Code(s): --- Technical --- 75965, Colonoscopy, flexible; with removal of tumor(s), polyp(s), or other lesion(s) by snare technique 26219, 59, Colonoscopy, flexible; with biopsy, single or multiple Diagnosis Code(s): --- Technical --- K63.5, Polyp of colon K62.1, Rectal polyp K92.1, Melena (includes Hematochezia) CPT copyright 2020 [employer]. All rights reserved. The codes documented in this report are preliminary and upon bee worker review may be revised to meet current [...] Initiated On: 07/15/2020 11:24 AM Yudy De La Rosa MD GI PROCEDURES Final Result from Last 3 Months or Most Recently Relevant to Health Maintenance Insurance A[employer]NA COMMERCIAL A[employer]NA COMMERCIAL BLUE CROSS BLUE SHIELD BCBS Cross Blue Shield Commercial (POS, PPO, etc) Address: [address] [place] [address] Advance Directives For more information, please contact: [phone] * Attempt CPR / Full Treatment (Latest [...] 1:00 AM 07/01/2022 6:11 PM Care Teams Hazardous Waste Management Specialist Relationship Specialty Start Date End Date Kayli Dejesus DO [address] [place], [place] [address] PCP - General Family Medicine 11/09/18
--- OUTSIDE RECORDS SUMMARY | 2024-10-28 10:05 | XMS_ITS | Encounter Summary ---
Author Organization [facility] Address [address] [place] [address] Phone Care Team Providers Care Poultry Hatchery Man Name Role Phone Wilmersaida Kayli Jamison DO Primary Care Provider +1- [phone] Reason for Visit * Reason Onset Date Comments Recall 06/10/2023 Encounter Details Date Type Department Care Team (Late st Contact Info) Description 06/10/2023 Telephone [facility] [place] [address] [place], [place] [address] Romeo Charles MD [address] [place] [address] Recall Social History Tobacco Use Types Packs/Day [...] from your doctor or pharmacy? Never 05/29/2023 [facility] Utilities Answer Date Recorded In [...] documented as of this encounter Care Teams Poultry Hatchery Man Relationship Specialty Start Date End Date Kayli Dejesus DO [address] [place] [address] PCP - General Family Medicine 11/09/18 documented as of this encounter
--- OUTSIDE RECORDS SUMMARY | 2024-10-28 10:05 | XMS_ITS | Encounter Summary ---
Author Organization [facility] Address [address] [place] [address] Phone Care Team Providers Care Marketing And Promotions Manager Name Role Phone Kayli Dejesus DO Primary Care Provider +1- [phone] Encounter Details Date Type Department Care Team (Late st Contact Info) Description 04/13/2023 Telephone [facility] Oncology [facility] [place] [address] [place], [place] [id number] Sarai Medrano MD [address], [place] [id number] Social History Tobacco Use Types Packs/Day Years Used Date Smoking Tobacco: Never Passive Smoke Exposure: Never Smokeless Tobacco: Never Alcohol Use Standard Drinks/Week Comments Never 0 (1 standard drink = 0.6 oz pur e alcohol) [facility] Utilities Answer Date Recorded In the past 12 months has e [employer], gas, oil, or water [employer] threatened to shut off services in your [...] to sleep or slept in a senior living (including now)? No 01/13/2023 Sex and Gender Information Value Date Recorded Sex Assigned at Not on file Legal Sex Male 11:58 AM CDT Gender Identity Not on file Sexual Orientation Not on file documented as of this encounter Miscellaneous Notes * Telephone Encounter - Kavya Ahuja - 04/13/2023 4:36 PM CST Pt states that he is returning a call to [facility]. No documentation is found by sports book writer on why patient was called. [employer] documented in this encounter Plan of Treatment [...] independent and adherent to HEP for greater molder hand management of condition. 2) Pt will have [...] documented for the patient 04/12/2023 11:10 AM [employer] documented as of this encounter Care Teams Marketing And Promotions Manager Relationship Specialty Start Date End Date Kayli Dejesus DO [address] [place] [address] PCP - General Family Medicine 11/09/18 documented as of this encounter
--- OUTSIDE RECORDS SUMMARY | 2024-10-28 10:05 | XMS_ITS | Encounter Summary ---
Author Organization [facility] Address [address] [place] [address] Phone Care Team Providers Care Presentation Manager Name Role Phone Kayli Dejesus DO Primary Care Provider +1- [phone] Reason for Referral * Consultation - Closed Specialty Diagnoses / Procedures Referred By Contac t Referred To Contact Cardiology Diagnoses Palpitations SOB (shortness of breath) SVT (supraventricular tachycardia) ([facility]) Procedures AMB CONSULT CARDIOLOGY Kayli Dejesus DO [address] [place] [address] Phone: tel: fax: [facility] [place] [address] [place] [address] Phone: tel: fax: Referral ID Status Reason Start Date Expiration Date Visits Re quested Visits Authorized [id number] Closed 04/11/2023 1 1 KER WIRER Reason for Visit * Reason Onset Date Comments Results 04/11/2023 Encounter Details Date Type Department Care Team (Late st Contact Info) Description 04/11/2023 Telephone [facility] [place] [address] [place] [address] Kayli Dejesus DO [address] [place] [address] Results Social History Tobacco Use Types Packs/Day Years Used Date Smoking Tobacco: Never Passive Smoke Exposure: Never Smokeless Tobacco: Never Alcohol Use Standard Drinks/Week Comments Never 0 (1 standard drink = 0.6 oz pur e alcohol) [facility] Utilities Answer Date Recorded In [...] appt with Dr. Dejesus 04/12/23 at 11am. KER WIRER * Telephone Encounter - Manuel Christensen LPN - 04/11/2023 3:16 PM CST ----- Message from Kayli Dejesus DO sent at 04/06/2023 10:46 AM SPEAKER WIRER ----- Please call patient with results. Overall [...] that time and or referral to Cardiology. KER WIRER KER WIRER documented in this encounter Plan of Treatment Not on file documented as of this encounter Goals Goal Patient Goal Type Associated Problems Recent Progress Patient-Stated? Author PT R hip Physical Therapy No Litzy Hosue PT Note: Within 8 weeks (07/22/20): 1) [...] breath) Shortness of breath SVT (supraventricular tachycardia) ([facility]) Other specified cardiac dysrhythmias documented in this encounter Additional Health Concerns Infection Onset Date Last Indicated Resolved Time Suspected COVID-06/15/2024 06/15/2024 4:43 PM CDT Assessment Noted Time A Hypertension Plan of Care has been documented for the patient 01/20/2023 2:55 PM SPEAKER WIRER documented as of this encounter Care Teams Presentation Manager Relationship Specialty Start Date End Date Kayli Dejesus DO [address] [place] [address] PCP - General Family Medicine 11/09/18 documented as of this encounter
--- OUTSIDE RECORDS SUMMARY | 2024-10-28 10:05 | XMS_ITS | Encounter Summary ---
Author Organization [facility] Address [address] [place] [address] Phone Care Team Providers Care [place] Name Role Phone Kayli Dejesus Yaquelin Primary Care Provider +1- [phone] Reason for Visit * Reason Onset Date Comments Information Only 05/28/2022 Encounter Details Date Type Department Care Team (Late st Contact Info) Description 05/28/2022 Telephone [facility] [address] [id number] Adi Orosco III, MD [address] [place], [place] [address] Information Only Social History Tobacco Use Types [...] documented for the patient 03/09/2022 7:37 AM ELECTRONICS SPECIALIST documented as of this encounter Care Teams [place] Relationship Specialty Start Date End Date Kayli Dejesus DO [address] [place] [address] PCP - General Family Medicine 11/09/18 documented as of this encounter
[2024-10-28 10:06] LABS: Hematocrit 52.3 % (42.0-52.0); Hemoglobin 18.2 g/dL (14.0-18.0); Immature Granulocyte Percent A 0.3 % (0-0.5); Lymphocytes Absolute Auto 0.79 K/mm3 (0.9-3.2); Mean Corpuscular HGB Conc 34.8 g/dl (32-36); Mean Corpuscular Hemoglobin 31.0 pg (26-34); Mean Corpuscular Volume 88.9 fl (80-100); Nucleated Red Blood Cells Absolute Auto 0.000 K/mm3 (0.0-0.012); Nucleated Red Blood Cells Perc 0.0 % (0.0-0.2); Platelet Count Result 209 k/mm3 (150-375); Red Blood Count 5.88 M/mm3 (4.6-6.20); White Blood Count 12.4 K/mm3 (4.5-10.0)
--- NOTE | 2024-10-28 10:24 | ED_ITS ---
HPI - General Adult General Chief complaint: Skin/Abscess/Foreign Body Stated complaint: cellulitis, R leg Time Seen by Provider: 10/28/24 09:37 History of Present Illness HPI narrative: 59-year-old male with previous history of cellulitis presents to the emergency department for evaluation for acute onset fever this morning and right anterior okeefe pain with localized erythema. Patient has had prior issues with cellulitis but is not diabetic. Patient's most recent cellulitis was approximately 4 years ago. Related Data Allergies Allergy/AdvReac Type Severity Reaction Status Date / Time codeine Allergy Unknown Nausea Verified 10/28/24 09:42 atorvastatin Allergy Other Verified 10/28/24 09:42 cephalexin Allergy Hives Verified 10/28/24 09:42 doxycycline Allergy Rash Verified 10/28/24 09:42 Review of Systems 2 Review of Systems: All systems reviewed & are unremarkable except as noted in HPI and below PMFSH Family History Family History (Updated 09/05/15 @ 23:21 by DOCTOR UNKNOWN) Mother Patient's mother is in good health Hypertension Family history of elevated blood lipids Family history of irritable bowel syndrome Sibling Patient's sister is in good health Father Malignant neoplasm of prostate, Onset Age: 60 Family history of elevated blood lipids Patient's father is in good health Grandparent Diabetes mellitus Social History Social History Smoking status: Never smoker Alcohol intake: never Exam 2 Narrative: APPEARANCE: Well-appearing HEAD: normocephalic, atraumatic. EYES: PERRLA/EOMI, conjunctivae clear. NOSE: Normal no drainage EARS:TMS clear with good light reflex. THROAT: Pharynx clear, no exudate. NECK: Supple. No adenopathy, no masses. RESPIRATORY: Airway patent, respirations nonlabored. Clear to auscultation bilaterally, no rales, rhonchi, wheezing. CARDIOVASCULAR: Regular rate and rhythm without murmurs rubs or gallops. ABDOMINAL: Soft, nontender, nondistended, normal bowel sounds MUSCULOSKELETAL: Moves all extremities. Strength/ROM intact, No edema, No calf tenderness. NEURO: Alert. Cranial nerves II through XII intact. Good gait. Good coordination SKIN: Localized erythema at the anterior right okeefe Course Vital Signs Vital signs: Vital Signs Temperature 100.9 F H 10/28/24 09:26 Pulse Rate 95 10/28/24 09:26 Respiratory Rate 18 10/28/24 09:26 Blood Pressure 164/89 H 10/28/24 09:26 Pulse Oximetry 100 10/28/24 09:26 Oxygen Delivery Autopap 10/28/24 09:26 Temperature 102.6 F H 10/28/24 11:22 Pulse Rate 90 10/28/24 11:22 Respiratory Rate 20 10/28/24 11:22 Blood Pressure 131/76 10/28/24 11:22 Pulse Oximetry 96 10/28/24 11:22 Oxygen Delivery Autopap 10/28/24 09:26 Medical Decision Making MDM Narrative Medical decision making narrative: 59-year-old male presents emergency department for evaluation for cellulitis of the right anterior okeefe that just started today. Patient has not been on any recent antibiotics. Patient does have a fever and a white count of 12 point for a stable hemoglobin 18.2. Patient has no lactic acid, no elevated CRP and patient's ESR is not elevated. Patient was started on IV clindamycin due to underlying medication allergies. Patient states he has responded well to clindamycin previously. Patient will be treated with p.o. clindamycin. Patient was up to the results of the workup. Patient was comfortable plan for discharge and close follow-up. All questions concerns were addressed. Patient well- appearing at time of discharge. Differential Diagnosis Differential Diagnosis: DVT, cellulitis, erysipelas, sepsis Vital Signs Vital Signs: Vital Signs Temperature 100.9 F H 10/28/24 09:26 Pulse Rate 95 10/28/24 09:26 Respiratory Rate 18 10/28/24 09:26 Blood Pressure 164/89 H 10/28/24 09:26 Pulse Oximetry 100 10/28/24 09:26 Oxygen Delivery Autopap 10/28/24 09:26 Temperature 102.6 F H 10/28/24 11:22 Pulse Rate 90 10/28/24 11:22 Respiratory Rate 20 10/28/24 11:22 Blood Pressure 131/76 10/28/24 11:22 Pulse Oximetry 96 10/28/24 11:22 Oxygen Delivery Autopap 10/28/24 09:26 Lab Data Lab results reviewed: Yes I reviewed the patient's lab results. 10/28/24 09:54 10/28/24 09:54 Labs: Lab Results 10/28/24 Range/Units 09:54 WBC 12.4 H (4.5-10.0) K/mm3 RBC 5.88 (4.6-6.20) M/mm3 Hgb 18.2 H (14.0-18.0) g/dL Hct 52.3 H (42.0-52.0) % MCV 88.9 (80-100) fl MCH 31.0 (26-34) pg MCHC 34.8 (32-36) g/dl RDW 12.4 (11.5-14.5) % Plt Count 209 (150-375) k/mm3 MPV 8.9 (7.4-10.4) fl Immature Gran % (Auto) 0.3 (0-0.5) % Neut % (Auto) 88.0 H (45.5-73.1) % Lymph % (Auto) 6.4 L (18.3-44.2) % [place] % (Auto) 4.4 (2.6-8.5) % Eos % (Auto) 0.6 (0-4.4) % Baso % (Auto) 0.3 (0.2-1.2) % Lymph # (Auto) 0.79 L (0.9-3.2) K/mm3 [place] # (Auto) 0.6 (0.1-0.6) K/mm3 Eos # (Auto) 0.1 (0-0.3) K/mm3 Baso # (Auto) 0.0 (0.0-0.1) K/mm3 Abs Immat Gran (auto) 0.04 H (0.00-0.031) K/mm3 Absolute Neuts (auto) 10.9 H (1.3-6.7) K/mm3 Absolute Nucleated RBC 0.000 (0.0-0.012) K/mm3 Nucleated RBC % 0.0 (0.0-0.2) % ESR 1 (0-20) mm/hr Sodium 138 (137-145) mmol/L Potassium 3.9 (3.4-5.0) mmol/L Chloride 98 (98-107) mmol/L Carbon Dioxide 30 (22-30) mmol/L Anion Gap 10 (4-12) mmol/L BUN 13 (9-20) mg/dL Creatinine 1.21 (0.7-1.3) mg/dL Estim Creat Clear Calc 76 ml/min Estimated GFR > 60 (59 - ) Glucose 124 H (65-110) mg/dL Lactic Acid 1.8 (0.7-2.0) mmol/L Calcium 9.4 (8.4-10.2) mg/dL Total Bilirubin 1.5 H (0.2-1.3) mg/dL AST 42 (17-59) U/L ALT 61 H (6-50) U/L Alkaline Phosphatase 77 (38-126) U/L C-Reactive Protein < 0.5 (<1.0) mg/dL Total Protein 9.3 H (6.3-8.2) g/dL Albumin 4.8 (3.5-5.1) g/dL Discharge Plan Discharge Clinical Impression: Cellulitis Patient Disposition: Home Condition: Stable Instructions: Antibiotic Form, Cellulitis (ED) Additional Instructions: Tylenol and ibuprofen for fever. Drink plenty of fluids. Antibiotic as directed until completed. If you have any worsening symptoms then please call or return to the emergency department. Patient Language: Telugu Prescriptions: New clindamycin HCl [Cleocin HCl] 300 mg capsule 300 mg PO Q6H 7 Days Qty: 28 0RF Follow-up/Referrals: PHYSICIAN,COMMAND AND CONTROL OFFICER [Primary Care Provider, Internal Medicine]
[2024-10-28] MEDS: KETOROLAC 30 MG/ML VIAL (*BKC) IV PUSH (10:34)
[2024-10-28] MEDS: LACTATED RINGERS 1,000 ML 999 ML IV CONT (10:35)
[2024-10-28] MEDS: CLINDAMYCIN 600 MG/D5W 50 ML 600 MG/50 ML PIGGYBACK 100 MG IVPB (10:35)
[2024-10-28 10:36] LABS: Alanine Aminotransferase 61 U/L (6-50); Albumin Level 4.8 g/dL (3.5-5.1); Alkaline Phosphatase 77 U/L (38-126); Anion Gap 10 mmol/L (4-12); Aspartate Amino Transferase 42 U/L (17-59); Bilirubin,Total 1.5 mg/dL (0.2-1.3); Blood Urea Nitrogen 13 mg/dL (9-20); CRP < 0.5 mg/dL (<1.0); Calcium 9.4 mg/dL (8.4-10.2); Carbon Dioxide 30 mmol/L (22-30); Chloride 98 mmol/L (98-107); Estimated CRCL calculation 76 ml/min; Estimated Glomerular Filt Rate > 60; Glucose 124 mg/dL (65-110); Potassium 3.9 mmol/L (3.4-5.0); Sodium 138 mmol/L (137-145); Total Protein 9.3 g/dL (6.3-8.2)
[2024-10-28] MEDS: ACETAMINOPHEN 500 MG TABLET 1000 MG PO (10:37)
[2024-10-28 11:20] VITALS: TEMP 39.2
[2024-10-28 11:22] VITALS: BP 131/76; PULSE 90; RESP 20; TEMP 39.2; O2SAT 96
== END 2024-10-28 12:02 | disposition home or self-care (01) ==
PROVIDERS: Emergency Medicine; Emergency Provider Emergency Medicine
DX: L03.115 Cellulitis of right lower limb (principal)
CPT/HCPCS: 36415; 80053; 83605; 85025; 85652; 86140; 87040; 96365; 96375; 99284; A9270; J1885; J7120

== ENCOUNTER 2024-11-16 14:20 | Observation (INO) | payer SELFPAY ==
[2024-11-16] VITALS (23 sets, daily range): BP systolic 131–155; BP diastolic 80–101; PULSE 76–96; RESP 11–20; TEMP 36.7–36.9; O2SAT 96–100; BMI 36.6
--- NOTE | ~2024-11-16 | US_ITS ---
EXAMINATION: US venous doppler [facility], 11/16/2024 16:11 CDT HISTORY: BL leg pain, worse on right, history of clot COMPARISON: None Technique: Soto-scale and color Doppler images were attempted of the lower saphenofemoral junction, common femoral vein,superficial femoral vein, proximal deep femoral vein, proximal deep femoral vein, popliteal vein and posterior tibial veins. Findings: Deep Venous System:There is thrombus with diminished flow in the left popliteal vein, the remaining visualized deep venous system is unremarkable. Superficial Venous SystemNo superficial thrombophlebitis. Soft tissues: Soft tissues are unremarkable. Impression: Left popliteal DVT Reviewed, dictated and finalized at location P. Impression: Left popliteal DVT
--- NOTE | ~2024-11-16 | CT_ITS ---
Exam: CT chest without contrast Clinical History: [Concern for PE ] Comparison: [ CT chest, abdomen and pelvis 08/04/2012] Technique: Multiple axial CT images of the chest without with IV contrast. Sagittal and coronal reformatted images were obtained. FINDINGS: Lungs and pleura: [ Small pulmonary embolism in the lingular artery.] There is a 1.1 cm pulmonary nodule in the right lower lobe. Visualized tracheal bronchial tree is patent. No pneumothorax. No pulmonary mass. There are a few small bandlike and patchy opacities in the lower lungs which represent atel ectasis/scarring or infiltrates. Mediastinum and pulmonary amando: [ No mass or adenopathy.] Axillary/intramammary and supraclavicular: [ No mass or adenopathy.] Heart and great vessels: [ Heart is mildly enlarged.[ [ No pericardial effusion.] [ No aneurysm.] Chest Wall: [ Unremarkable.] Liver: [Fatty liver. No mass.] [ No intrahepatic biliary duct dilatation.] Gallbladder: Cholecystectomy. Common bile duct: [ Normal caliber.] [ No stones.] Spleen: [ Within normal limits.] Pancreas: [ No mass. No pancreatic fluid collection.] Adrenals: [ No masses.] Kidneys: [ No masses. No hydronephrosis.][ ] Lymph nodes: [ No adenopathy in the abdomen or pelvis.] Stomach, small bowel and colon: [ No bowel wall thickening or obstruction.] Mild thickening of the loredo of the transverse, descending and proximal sigmoid colon. Differential includes incomplete bowel wall distention or colitis. Peritoneum cavity: [ No mesenteric fat stranding or fluid.] Bladder: Moderate concentric thickening of the loredo of the mildly distended bladder. Prostate gland is mildly enlarged partially calcified. Osseous structures: [ No acute fracture.] [ Multilevel degenerative change in the visualized spine.] Cervical hardware. Abdominal aorta: [ No aneurysm.] Additional findings: [ None of significance.] IMPRESSION: 1. Small pulmonary embolism in the lingular artery.] , a provider working with the patient, was notified about the findings on 11/16/2024 at 4:40 PM Eastern standard time by Dr. Villafuerte, read back occurred. 2. There is a 1.1 cm pulmonary nodule in the right lower lobe. A PET/CT and/or biopsy is recommended. 3. Mild thickening of the loredo of the transverse, descending and proximal sigmoid colon. Differential includes incomplete bowel wall distention or colitis. 4. Moderate concentric thickening of the loredo of the mildly distended bladder. Differential includes incomplete bladder wall distention versus cystitis. Reviewed, dictated and finalized at location Q. IMPRESSION: 1. Small pulmonary embolism in the lingular artery.] , a provider worki ng with the patient, was notified about the findings on 11/16/2024 at 4:40 PM E astern standard time by Dr. Villafuerte, read back occurred. 2. There is a 1.1 cm pulmonary nodule in the right lower lobe. A PET/CT and/or biopsy is recommended. 3. Mild thickening of the loredo of the transverse, descending and proximal sig moid colon. Differential includes incomplete bowel wall distention or colitis. 4. Moderate concentric thickening of the loredo of the mildly distended bladder . Differential includes incomplete bladder wall distention versus cystitis.
--- NOTE | ~2024-11-16 | XR_ITS ---
EXAMINATION: XR chest 2V, 11/16/2024 15:20 CDT HISTORY: CP COMPARISON: No comparisons available. Technique: 2 views obtained. Findings: The lungs are clear, no effusion. No pneumothorax. Heart is normal size. Mediastinal and hilar contours are within normal limits. Bony thorax no acute abnormality. Impression: No acute cardiopulmonary abnormality. Reviewed, dictated and finalized at location P. Impression: No acute cardiopulmonary abnormality.
--- NOTE | 2024-11-16 14:21 | ECG_ITS ---
Test Date: 2024-11-16 14:25:36 Measurements Intervals [place] Rate: 106 P: 49 MO: 151 QRS: -20 QRSD: 93 T: 61 QT: 341 QTc: 453 Interpretive Statements SINUS TACHYCARDIA MINIMAL Q WAVES- ANTEROLATERAL LEADS BASELINE ARTIFACT- III, AVL BORDERLINE ECG No previous ECG available for comparison Electronically Signed On 11-16-2024 14:27:43 CDT by Rell Beaver D.O.
[2024-11-16 14:48] LABS: Hematocrit 48.0 % (42.0-52.0); Hemoglobin 16.9 g/dL (14.0-18.0); Immature Granulocyte Percent A 0.2 % (0-0.5); Lymphocytes Absolute Auto 1.69 K/mm3 (0.9-3.2); Mean Corpuscular HGB Conc 35.2 g/dl (32-36); Mean Corpuscular Hemoglobin 31.1 pg (26-34); Mean Corpuscular Volume 88.4 fl (80-100); Nucleated Red Blood Cells Absolute Auto 0.000 K/mm3 (0.0-0.012); Nucleated Red Blood Cells Perc 0.0 % (0.0-0.2); Platelet Count Result 226 k/mm3 (150-375); Red Blood Count 5.43 M/mm3 (4.6-6.20); White Blood Count 4.7 K/mm3 (4.5-10.0)
[2024-11-16 14:55] LABS: INR 1.1; Prothrombin Time 13.9 Seconds (11.1-14.7)
--- NOTE | 2024-11-16 14:55 | ED_ITS ---
HPI - General Adult General Chief complaint: Chest Pain Stated complaint: Chest pain, L side pain Time Seen by Provider: 11/16/24 14:29 History of Present Illness HPI narrative: 59-year-old male presents to the emergency department for evaluation for right lower extremity pain along with increased exertional shortness of breath. Patient was recently seen for a cellulitis and states this did resolve very quickly with the clindamycin. Patient states afterwards he did began developing the right posterior calf pain. Patient states he has had worsening exertional shortness breath over the last few weeks as well. 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 Patient denies missing any doses. Patient is well-appearing at time of evaluation patient declined any medications for pain control. Related Data Allergies Allergy/AdvReac Type Severity Reaction Status Date / Time codeine Allergy Unknown Nausea Verified 10/28/24 09:42 atorvastatin Allergy Other Verified 10/28/24 09:42 cephalexin Allergy Hives Verified 10/28/24 09:42 doxycycline Allergy Rash Verified 10/28/24 09:42 Review of Systems 2 Review of Systems: All systems reviewed & are unremarkable except as noted in HPI and below PMFSH Family History Family History (Updated 09/05/15 @ 23:21 by DOCTOR UNKNOWN) Mother Patient's mother is in good health Hypertension Family history of elevated blood lipids Family history of irritable bowel syndrome Sibling Patient's sister is in good health Father Malignant neoplasm of prostate, Onset Age: 60 Family history of elevated blood lipids Patient's father is in good health Grandparent Diabetes mellitus Social History Social History Smoking status: Never smoker Alcohol intake: never Exam 2 Narrative: APPEARANCE: Well appearing, no pain, no distress, well-nourished. HEAD: normocephalic, atraumatic. EYES: PERRLA/EOMI, conjunctivae clear. NOSE: Normal no drainage EARS:TMS clear with good light reflex. THROAT: Pharynx clear, no exudate. NECK: Supple. No adenopathy, no masses. RESPIRATORY: Airway patent, respirations nonlabored. Clear to auscultation bilaterally, no rales, rhonchi, wheezing. CARDIOVASCULAR: Regular rate and rhythm without murmurs rubs or gallops. ABDOMINAL: Soft, nontender, nondistended, normal bowel sounds MUSCULOSKELETAL: No significant right lower extremity edema and does have right posterior calf tenderness to palpation, no evidence of current cellulitis. NEURO: Alert. Cranial nerves II through XII intact. Grossly intact SKIN: Warm, dry. Normal Color Course Vital Signs Vital signs: Vital Signs Pulse Rate 96 11/16/24 14:24 Blood Pressure 141/100 H 11/16/24 14:24 Pulse Rate 79 11/16/24 18:50 Respiratory Rate 20 11/16/24 18:50 Blood Pressure 144/86 H 11/16/24 18:50 Pulse Oximetry 99 11/16/24 18:50 Oxygen Delivery Room Air 11/16/24 14:32 Medical Decision Making MDM Narrative Medical decision making narrative: 59-year-old male prior history of DVT and PE currently taking Eliquis presents to the emergency department for evaluation for worsening bilateral lower extremity pain worse on the right than the left along with exertional shortness of breath. Patient did have a left-sided popliteal vein DVT and did have a the lingular artery pulmonary embolism. Patient was started on heparin bolus and infusion. Patient family updated the results of the workup. Patient was admitted to IMU. Patient is afebrile with no leukocytosis hemoglobin of 16.9. INR is 1.1. Patient has no elevation in his troponin. UA was negative for infection. Critical Care Procedure Note Authorized and Performed by: Rony Espinosa Total critical care time: Approximately 36 minutes Due to a high probability of clinically significant, life threatening deterioration, the patient required my highest level of preparedness to intervene emergently and I personally spent this critical care time directly and personally managing the patient. This critical care time included obtaining a history; examining the patient; pulse oximetry; ordering and review of studies; arranging urgent treatment with development of a management plan; evaluation of patient's response to treatment; frequent reassessment; and, discussions with other providers. This critical care time was performed to assess and manage the high probability of imminent, life-threatening deterioration that could result in multi-organ failure. It was exclusive of separately billable procedures and treating other patients and teaching time. Please see MDM section and the rest of the note for further information on patient assessment and treatment. Differential Diagnosis Differential Diagnosis: DVT, muscular strain, cellulitis, pneumonia, pulmonary embolism Vital Signs Vital Signs: Vital Signs Pulse Rate 96 11/16/24 14:24 Blood Pressure 141/100 H 11/16/24 14:24 Pulse Rate 79 11/16/24 18:50 Respiratory Rate 20 11/16/24 18:50 Blood Pressure 144/86 H 11/16/24 18:50 Pulse Oximetry 99 11/16/24 18:50 Oxygen Delivery Room Air 11/16/24 14:32 Lab Data Lab results reviewed: Yes I reviewed the patient's lab results. 11/16/24 14:40 11/16/24 14:40 Labs: Lab Results 11/16/24 Range/Units 14:40 WBC 4.7 (4.5-10.0) K/mm3 RBC 5.43 (4.6-6.20) M/mm3 Hgb 16.9 (14.0-18.0) g/dL Hct 48.0 (42.0-52.0) % MCV 88.4 (80-100) fl MCH 31.1 (26-34) pg MCHC 35.2 (32-36) g/dl RDW 12.2 (11.5-14.5) % Plt Count 226 (150-375) k/mm3 MPV 8.9 (7.4-10.4) fl Immature Gran % (Auto) 0.2 (0-0.5) % Neut % (Auto) 52.6 (45.5-73.1) % Lymph % (Auto) 36.0 (18.3-44.2) % [place] % (Auto) 8.7 H (2.6-8.5) % Eos % (Auto) 2.1 (0-4.4) % Baso % (Auto) 0.4 (0.2-1.2) % Lymph # (Auto) 1.69 (0.9-3.2) K/mm3 [place] # (Auto) 0.4 (0.1-0.6) K/mm3 Eos # (Auto) 0.1 (0-0.3) K/mm3 Baso # (Auto) 0.0 (0.0-0.1) K/mm3 Abs Immat Gran (auto) 0.01 (0.00-0.031) K/mm3 Absolute Neuts (auto) 2.5 (1.3-6.7) K/mm3 Absolute Nucleated RBC 0.000 (0.0-0.012) K/mm3 Nucleated RBC % 0.0 (0.0-0.2) % PT 13.9 (11.1-14.7) Seconds INR 1.1 APTT 25.0 (22.3-36.8) Seconds Sodium 136 L (137-145) mmol/L Potassium 3.7 (3.4-5.0) mmol/L Chloride 104 (98-107) mmol/L Carbon Dioxide 25 (22-30) mmol/L Anion Gap 7 (4-12) mmol/L BUN 14 (9-20) mg/dL Creatinine 1.21 (0.7-1.3) mg/dL Estim Creat Clear Calc 77 ml/min Estimated GFR > 60 (59 - ) Glucose 128 H (65-110) mg/dL Calcium 9.1 (8.4-10.2) mg/dL Total Bilirubin 1.3 (0.2-1.3) mg/dL AST 41 (17-59) U/L ALT 55 H (6-50) U/L Alkaline Phosphatase 64 (38-126) U/L Troponin I < 0.012 (0.000-0.034) ng/mL Total Protein 8.2 (6.3-8.2) g/dL Albumin 4.4 (3.5-5.1) g/dL Lipase 65 (23-300) U/L Critical Care Time Critical Care Time Critical Care Time: Yes Total Critical Care Time: 36 Discharge Plan Discharge Clinical Impression: Pulmonary embolism, DVT (deep venous thrombosis) Patient Disposition: Still a Patient Condition: Serious
[2024-11-16 14:56] LABS: Partial Thromboplastin Time 25.0 Seconds (22.3-36.8)
[2024-11-16 15:03] LABS: Alanine Aminotransferase 55 U/L (6-50); Albumin Level 4.4 g/dL (3.5-5.1); Alkaline Phosphatase 64 U/L (38-126); Anion Gap 7 mmol/L (4-12); Aspartate Amino Transferase 41 U/L (17-59); Bilirubin,Total 1.3 mg/dL (0.2-1.3); Blood Urea Nitrogen 14 mg/dL (9-20); Calcium 9.1 mg/dL (8.4-10.2); Carbon Dioxide 25 mmol/L (22-30); Chloride 104 mmol/L (98-107); Estimated CRCL calculation 77 ml/min; Estimated Glomerular Filt Rate > 60; Glucose 128 mg/dL (65-110); Lipase 65 U/L (23-300); Potassium 3.7 mmol/L (3.4-5.0); Sodium 136 mmol/L (137-145); Total Protein 8.2 g/dL (6.3-8.2)
[2024-11-16 15:10] LABS: Troponin I < 0.012 ng/mL (0.000-0.034)
--- NOTE | 2024-11-16 17:26 | ECG_ITS ---
Test Date: 2024-11-16 17:46:09 Measurements Intervals [place] Rate: 78 P: 20 RI: 145 QRS: 8 QRSD: 98 T: 51 QT: 373 QTc: 427 Interpretive Statements SINUS RHYTHM NORMAL ECG Compared to ECG 11/16/2024 14:25:36 HEART RATE HAS DECREASED Electronically Signed On 11-17-2024 09:04:16 CDT by Rell Beaevr D.O.
--- NOTE | 2024-11-16 17:31 | P.HP_ITS ---
H&P: HPI History of Present Illness Date/Time: 11/16/24 17:31 Chief Complaint: Shortness of breath, chest pain, and right calf pain Narrative: 59-year-old male with past medical history of DVT and PE on Eliquis presents to the hospital for increased shortness of breath and right calf pain. Patient was recently seen for cellulitis and has been less active than normal. However he is diligent about taking his Eliquis. He denies missing any doses and confirms. Patient states that about 2 years ago he had a right lower extremity DVT and pulmonary embolism and had a IVC filter which is now been removed. He states that the DVT had resolved however they kept him on Eliquis due to not knowing what caused his DVT in the 1st place. He states that they never came up with a reason for him to have a DVT and is told to stay on Eliquis. Patient states that he was unknown lung nodule. Patient's my chart reviewed and CTA from earlier this year showed a 9 mm lung nodule. Records have been requested. Patient denies other complaints CBC within normal limits, INR 1.1, sodium 136, glucose 128, AST 55, 1st troponin negative, venous ultrasound shows left popliteal DVT. CTA chest abdomen pelvis show Small pulmonary embolism in the lingular artery, a 1.1 cm pulmonary nodule in the right lower lobe. A PET/CT and/or biopsy is recommended, Mild thickening of the loredo of the transverse, descending and proximal sigmoid colon. Differential includes incomplete bowel wall distention or colitis, and Moderate concentric thickening of the loredo of the mildly distended bladder. EKG shows sinus tachycardia rate of 106. Patient given aspirin and started on a heparin drip in the emergency room. Review of Systems Review of Systems: 12 systems were reviewed and are negativ e except for as per HPI. [facility] Family History Family History Mother Patient's mother is in good health Hypertension Family history of elevated blood lipids Family history of irritable bowel syndrome Sibling Patient's sister is in good health Father Malignant neoplasm of prostate, Onset Age: 60 Family history of elevated blood lipids Patient's father is in good health Grandparent Diabetes mellitus Social History Social History Smoking status: Never smoker Alcohol intake: current Substance use: never Lack of Transportation: No Lack of Food: Never True Current Housing: I Have Housing Concerned About Future Housing: No Difficulty Paying Gas/Electric Bills: No Difficulty Paying for Meds: No Currently Unemployed: No Education: Associate Degree Difficulty w/ Childcare or Family Care: No Spiritual care concerns: No Meds Home Medications and Allergies Home Medications ?Medication ?Instructions ?Recorded ?Confirmed ?Type apixaban 5 mg tablet (Eliquis) 5 mg PO BID 11/16/24 History fluticasone 500 mcg-salmeterol 50 1 inh inhalation Q12 H 11/16/24 11/16/24 Histor y mcg/dose blistr powdr for inhalation (Advair Diskus) fluticasone propionate 50 2 spray intranasal DAILY PRN 11/16/24 11/16/24 History mcg/actuation nasal allergy symptoms spray,suspension (24 Hour Allergy Relief) lisinopril 10 mg tablet 10 mg PO DAILY 11/16/2411/07 History metoprolol succinate 25 mg 25 mg PO DAILY 11/16/2412/01 History tablet,extended release 24 hr omeprazole 20 mg capsule,delayed 20 mg PO DAILY 11/16/24 History release tamsulosin 0.4 mg capsule 0.4 mg PO HS 11/16/24 History tiotropium bromide 18 mcg capsule 1 cap inhalation THERESA LY 11/16/24 11/16/24 History with inhalation device (Spiriva with HandiHaler) Allergies Allergy/AdvReac Type Severity Reaction Status Date / Time meperidine (From Demerol) Allergy Mild Nausea Verified 11/16/24 20:16 codeine Allergy Unknown Nausea Verified 10/28/24 09:42 atorvastatin Allergy Other Verified 10/28/24 09:42 cephalexin Allergy Hives Verified 10/28/24 09:42 doxycycline Allergy Rash Verified 10/28/24 09:42 Vital Signs Vital Signs - 24 hr 11/16/24 14:24 11/16/24 14:32 11/16/24 14:32 Pulse Rate 96 87 Respiratory Rate 14 Blood Pressure 141/100 H Pulse Oximetry Oxygen Delivery Room Air 11/16/24 14:34 11/16/24 14:45 11/16/24 14:46 Pulse Rate 88 80 79 Respiratory Rate 14 17 15 Blood Pressure 142/101 H 136/88 Pulse Oximetry 100 100 99 Oxygen Delivery 11/16/24 15:00 11/16/24 15:01 11/16/24 15:15 Pulse Rate 84 82 86 Respiratory Rate 13 18 11 L Blood Pressure 134/86 Pulse Oximetry 97 99 98 Oxygen Delivery 11/16/24 15:16 Pulse Rate 95 Respiratory Rate 17 Blood Pressure 144/82 H Pulse Oximetry Oxygen Delivery Exam Narrative: General: well appearing, appears stated age. HEENT: normocephalic, atraumatic. Mucous membranes moist. EOMI, PERRLA, bilateral sclera anicteric, no conjunctival injection. Neck supple without JVD, lymphadenopathy, or bruit. Respiratory: clear to ascultation bilaterally. No rales/rhonic/wheezes. Cardiovascular: Regular rate and rhythm, normal S1-S2 upon ascultation. No murmurs, rubs, or clicks. PMI is nondisplaced, capillary refill less than 3 second. Abdomen: Soft, round, no pulsatile masses, nondistended and nontender. No rebound, no guarding. No CVA tenderness, no hepatosplenomegaly. Bowel sounds present to all four quadrants. No high pitch or tinkling sounds, resonant to percussion. Extremities: No cyanosis, clubbing, or edema present. Pulses are palpable 2/2. Active ROM to all four extremities. Neuro: Alert and orientated x 4. PERRLA. Cranial nerves 2-12 intact without focal deficit. Skin: Warm, dry, and intact, without rash, erythema, or lesion. Psych: pleasant, cooperative, normal speech, normal affect, no hallucinations, no dysarthia H&P: Results Labs Labs: Short CBC 11/16/24 Range/Units 14:40 WBC 4.7 (4.5-10.0) K/mm3 Hgb 16.9 (14.0-18.0) g/dL Hct 48.0 (42.0-52.0) % Plt Count 226 (150-375) k/mm3 BMP 11/16/24 14:40 Sodium 136 L Potassium 3.7 Chloride 104 Carbon Dioxide 25 BUN 14 Creatinine 1.21 Glucose 128 H Calcium 9.1 Cardiac Enzymes 11/16/24 Range/Units 14:40 Troponin I < 0.012 (0.000-0.034) ng/mL Liver Function 11/16/24 Range/Units 14:40 Total Bilirubin 1.3 (0.2-1.3) mg/dL AST 41 (17-59) U/L ALT 55 H (6-50) U/L Alkaline Phosphatase 64 (38-126) U/L Albumin 4.4 (3.5-5.1) g/dL Assessment and Plan Assessment and plan (1) Pulmonary embolism: Code(s): I26.99 - Other pulmonary embolism without acute cor pulmonale Status: Acute Assessment and Plan: Small pulmonary embolism in the lingular artery. Patient was already on Eliquis 5 mg b.i.d. at home Heparin drip per protocol Hematology consulted for possible blood disorder Patient educated on not crossing his legs (2) DVT (deep venous thrombosis): Code(s): I82.409 - Acute embolism and thrombosis of unspecified deep veins of unspecified lower extremity Status: Acute Assessment and Plan: Left leg DVT See plan above (3) Chest pain: Code(s): R07.9 - Chest pain, unspecified Status: Acute Assessment and Plan: Likely due to pulmonary embolism Trend troponins EKG p.r.n. Nitro Echo pending Lipid panel Telemetry monitoring Patient already on heparin drip for DVT and PE (4) Pulmonary nodule: Code(s): R91.1 - Solitary pulmonary nodule Status: Acute Assessment and Plan: CT shows There is a 1.1 cm pulmonary nodule in the right lower lobe. A PET/CT and/or biopsy is recommended. 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 Records requested from outside hospital (5) Colon wall thickening: Code(s): K63.9 - Disease of intestine, unspecified Status: Acute Assessment and Plan: CT showed Mild thickening of the loredo of the transverse, descending and proximal sigmoid colon. Differential includes incomplete bowel wall distention or colitis. Patient has no abdominal complaints Quality VTE Prophylaxis VTE prophylaxis: mechanical ordered and pharmacologic ordered Hospitalist MIPS Advance Care Plan I have confirmed that the patient's Advanced Care Plan is present, code status is documented, or surrogate decision maker is listed in patient medical record.: Yes Medication Reconciliation I have utilized all available resources to obtain, update and review the patients current medications (includes all prescriptions, OTC, herbals, cannabis, and nutritional supplements).: Yes
[2024-11-16 17:54] LABS: Add Urine Microscopic? NO; Appearance Urine Clear (Clear); Glucose Urine UA Trace mg/dL (Negative); Leukocyte Esterase Ur Negative LEU/UL (Negative); Nitrate Urine Negative (Negative); Specific Grav Ur 1.012 (1.001-1.035)
[2024-11-16] MEDS: HEPARIN SOD/D5W 100 UNITS/ML 25,000 UNITS/250 ML BAG 15 UNITS IV CONT (18:06)
[2024-11-16 18:42] LABS: Troponin I < 0.012 ng/mL (0.000-0.034)
--- NOTE | 2024-11-16 18:59 | ADMGEN ---
This patient, Chauncey Gandara, was admitted to IMU Room 210-01. Patient/family oriented to hospital policies and general routines including ID bracelet, bed and alarms, visiting hours, pain management, procedures, bathroom and other care routines, personal items, smoking policy, room service/diet, and visiting hours. Information on how to activate the Rapid Response Team has been discussed. Patient/Family are encouraged to report perceived risks to care and to ask questions if they do not understand what they are told or what they should do.
[2024-11-16 21:07] LABS: Troponin I < 0.012 ng/mL (0.000-0.034)
[2024-11-16] MEDS: TAMSULOSIN HCL 0.4 MG CAPSULE PO (22:54)
[2024-11-16] MEDS: FLUTICASONE/SALMETEROL 230-21 MCG INHALER 1 PUFF 2 PUFF INHALATION (23:13)
[2024-11-17] VITALS (15 sets, daily range): BP systolic 113–139; BP diastolic 59–87; PULSE 62–82; RESP 14–20; TEMP 36.4–36.7; O2SAT 95–98
--- NOTE | 2024-11-17 | ECHO_ITS ---
Patient Info Name: Chauncey Gandara Age: 59 years : 1965 Gender: Male Ht: 70 in Wt: 255 lbs BSA: 2.43 m2 HR: 69 bpm BP: 113 / 59 mmHg Heart Rhythm: Sinus Rhythm Technical Quality: Good Exam Date: 11/17/2024 10:19 AM Patient Status: I Admit Date: 11/16/2024 Exam Type: CA echo doppler color flow Complete two-dimensional, color flow and Doppler transthoracic echocardiogram is performed. Staff Referring Physician: Rony Espinosa Enamel Cracker: Ophelia Gastelum Attending Provider: Caren Gonzalez MD Summary 1. Complete two-dimensional, color flow and Doppler transthoracic echocardiogram is performed. 2. Left ventricular chamber dimension is normal. 3. Left ventricular systolic function is normal, estimated at 60-65. 4. There is mildly increased left ventricular wall thickness. 5. The left ventricular diastolic function is grade I diastolic dysfunction. 6. Right ventricular chamber dimension is normal. 7. Right ventricular systolic function is normal. 8. Left atrial chamber dimension is mildly enlarged. 9. There is mild aortic valve sclerosis. Left Ventricle Left ventricular chamber dimension is normal. Left ventricular systolic function is normal, estimated at 60-65. There is mildly increased left ventricular wall thickness. The left ventricular diastolic function is grade I diastolic dysfunction. Right Ventricle Right ventricular chamber dimension is normal. Right ventricular systolic function is normal. Left Atria Left atrial chamber dimension is mildly enlarged. Right Atria Right atrial chamber dimension is normal. Atrial Septum Intact interatrial septum visualized by color flow imaging. Aortic Valve There is mild aortic valve sclerosis. There is no aortic valve stenosis. There is trace aortic valve regurgitation. Pulmonic Valve The pulmonic valve is normal. There is no pulmonic valve stenosis. There is trace pulmonic regurgitation. Mitral Valve The mitral valve has normal leaflets. There is no mitral valve stenosis. There is trace mitral valve regurgitation. Tricuspid Valve The tricuspid valve leaflets are normal. There is no significant tricuspid valve stenosis. There is trace tricuspid valve regurgitation. Pericardium/Pleural The pericardium appears normal. There is no pericardial effusion. Inferior Vena Cava Normal inferior vena cava with >50% collapse upon inspiration consistent with normal right atrial pressure, 5 mmHg. Aorta The aortic root size at the sinus of Valsalva is normal. Left Ventricular Outflow Tract Name Value Normal LVOT 2D LVOT Diameter 2.0 cm LVOT Doppler LVOT Peak Velocity 128 cm/s LVOT Peak Gradient 7 mmHg LVOT Mean Gradient 4 mmHg LVOT VTI 28 cm LVOT VTI/AV VTI Ratio 0.9 LVOT Stroke Volume 91 ml LVOT CO 6.3 l/min LVOT CI 2.6 l/min/m2 Pulmonic Valve Name Value Normal RVOT Doppler RVOT Peak Velocity 79 cm/s RVOT Peak Gradient 3 mmHg PV Doppler PV Peak Velocity 105 cm/s PV Peak Gradient 4 mmHg Mitral Valve Name Value Normal MV Diastolic Function MV E Peak Velocity 63 cm/s MV A Peak Velocity 64 cm/s MV E/A 1.0 MV Decel Time (PW) 219 ms MV Annular TDI MV E/e' (Septal) 10.8 MV E/e' (Lateral) 5.1 MV E/e' (Average) 8.0 Tricuspid Valve Name Value Normal Estimated PAP/RSVP RA Pressure 5 mmHg <=5 Aortic Valve Name Value Normal AV Doppler AV Peak Velocity 150 cm/s AV Peak Gradient 9 mmHg AV Mean Gradient 5 mmHg AV VTI 31 cm AV Area (Cont Eq VTI) 2.9 cm2 >=3.0 AV Area (Cont Eq Devin) 2.8 cm2 AV DI (Devin) 0.86 AV Regurgitation 2D LVOT Area 3.3 cm2 Ventricles Name Value Normal LV Dimensions 2D/MM IVS Diastolic Thickness (2D) 1.0 cm 0.6-1.0 LVID Diastole (2D) 3.5 cm 4.2-5.8 LVIW Diastolic Thickness (2D) 1.2 cm 0.6-1.0 LVID Systole (2D) 2.4 cm 2.5-4.0 LVOT Diameter 2.0 cm LV Mass (2D Cubed) 117.64 g 88.00-224.00 LV Mass Index (2D Cubed) 48 g/m2 49-115 Relative Wall Thickness (2D) 0.69 <=0.42 LV Fractional Shortening/Ejection Fraction 2D/MM LV Fractional Shortening (2D) 33 % 25-43 LV EF (2D Teichholz) 62 % LV Diastolic Volume (4C MOD) 103 ml LV EF (4C MOD) 63 % LV Diastolic Volume (2C MOD) 77 ml LV EF (2C MOD) 55 % LV Diastolic Volume (BP MOD) 89 ml 62-150 LV Diastolic Volume Index (BP MOD) 37 ml/m2 34-74 LV Systolic Volume (BP MOD) 37 ml 21-61 LV Systolic Volume Index (BP MOD) 15 ml/m2 11-31 LV EF (BP MOD) 59 % 52-72 LV Diastolic Length (4C) 8.7 cm LV Systolic Length (4C) 7.3 cm LV Stroke Volume (4C MOD) 64 ml Atria Name Value Normal LA Dimensions LA Volume (4C A-L) 27 ml LA Volume (BP A-L) 24 ml RA Dimensions RA Systolic Major [place] Length (4C) 5.4 cm 2.1-2.7 RA Area (4C) 14.5 cm2 <=18.0 Report Signatures
[2024-11-17 00:37] LABS: Partial Thromboplastin Time 153.2 Seconds (22.3-36.8)
[2024-11-17] MEDS: WATER FOR IRRIGATION, STERILE 1,000 ML BOTTLE 1000 ML (01:11)
[2024-11-17 08:05] LABS: Hematocrit 46.7 % (42.0-52.0); Hemoglobin 16.3 g/dL (14.0-18.0); Immature Granulocyte Percent A 0.5 % (0-0.5); Lymphocytes Absolute Auto 1.56 K/mm3 (0.9-3.2); Mean Corpuscular HGB Conc 34.9 g/dl (32-36); Mean Corpuscular Hemoglobin 30.8 pg (26-34); Mean Corpuscular Volume 88.3 fl (80-100); Nucleated Red Blood Cells Absolute Auto 0.000 K/mm3 (0.0-0.012); Nucleated Red Blood Cells Perc 0.0 % (0.0-0.2); Platelet Count Result 200 k/mm3 (150-375); Red Blood Count 5.29 M/mm3 (4.6-6.20); White Blood Count 4.4 K/mm3 (4.5-10.0)
[2024-11-17 08:19] LABS: Anion Gap 5 mmol/L (4-12); Blood Urea Nitrogen 13 mg/dL (9-20); Calcium 8.8 mg/dL (8.4-10.2); Carbon Dioxide 24 mmol/L (22-30); Chloride 106 mmol/L (98-107); Cholesterol 229 mg/dL (0-200); Estimated CRCL calculation 88 ml/min; Estimated Glomerular Filt Rate > 60; Glucose 110 mg/dL (65-110); HDL Direct 41 mg/dL; Potassium 3.9 mmol/L (3.4-5.0); Sodium 135 mmol/L (137-145); Triglycerides 109 mg/dL (<150)
--- NOTE | 2024-11-17 08:20 | P.CONPL_ITS ---
Assessment and Plan Assessment and plan (1) Pulmonary nodule: Code(s): R91.1 - Solitary pulmonary nodule Status: Acute Assessment and Plan: Regarding his right lower lobe nodule. At the time of his CT scan of the chest on 01/13/2022 he was told he had a 10 mm nodule in the bottom part of the right lung. The plan was to monitor this every 6-12 months and he has had 3 or 4 scans since then and has been told there was no change. He does not remember when his last CT scan was. patient also had a PET scan and was told that this was negative. Plan: Await CT scan report and discs from [facility] to document 2 years stability. Disscused with Dr. Solano, will follow with you. History of Present Illness History of Present Illness Consult date: 11/17/24 Chief complaint: DVT and Pulmonary Embolism Narrative: 11/17/2024: This is a new pulmonary consult for right lower lobe pulmonary nodule. 59-year-old with a history of asthma, obstructive sleep apnea on CPAP, PE and DVT 01/13/2022 and right lower lobe nodule. Regarding patient's asthma he was diagnosed at age 37, he is maintained on Advair 500-50 and Spiriva HandiHaler. He has had 1 exacerbation in the last year. Regarding patient's obstructive sleep apnea he is on CPAP with an over the mouth under the nose mask for the last 7 or 8 years he says that this works well. He rented and now owns his machine and gets supplies by [employer] and has no [employer] company. He uses no oxygen at night. Regarding his [facility] and says that he was taken to the operating room that night and they had a VAC clean out of his arteries and placement of a temporary IVC filter. The IVC filter was later removed and he has been maintained on Eliquis 5 p.o. b.i.d. since then. Regarding his right lower lobe nodule. At the time of his CT scan of the chest on 01/13/2022 he was told he had a 10 mm nodule in the bottom part of the right lung. The plan was to monitor this every 6-12 months and he has had 3 or 4 scan since then and has been told there was no change. He does not remember when his last CT scan was. patient also had a PET scan and was told that this was negative. Patient is a never smoker. Patient was never exposed to secondhand smoke. Patient denies vaping or illicit drug use. 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 Patient presented to the emergency room with 3 days worsening dyspnea on exertion, tachycardia, shortness of breath and heavy chest feeling and was found to have a left lung PE and 1.1 cm right lower lobe well-circumscribed nodule. 11/17/2024: Currently the patient states that he has some improvement. May be feels 15% back to his normal but he still has some rest shortness of breath. Currently the patient is on room air with saturations 98%. He is afebrile. White blood cell count is 4.4, creatinine is 1.03, troponins negative x3, DATA: Exam: CT chest without contrast Clinical History: [Concern for PE ] Comparison: [ CT chest, abdomen and pelvis 08/04/2012] Technique: Multiple axial CT images of the chest without with IV contrast. Sagittal and coronal reformatted images were obtained. FINDINGS: Lungs and pleura: [ Small pulmonary embolism in the lingular artery.] There is a 1.1 cm pulmonary nodule in the right lower lobe. Visualized tracheal bronchial tree is patent. No pneumothorax. No pulmonary mass. There are a few small bandlike and patchy opacities in the lower lungs which represent atelectasis/scarring or infiltrates. Mediastinum and pulmonary amando: [ No mass or adenopathy.] Axillary/intramammary and supraclavicular: [ No mass or adenopathy.] Heart and great vessels: [ Heart is mildly enlarged.[ [ No pericardial effusion.] [ No aneurysm.] Chest Wall: [ Unremarkable.] Liver: [Fatty liver. No mass.] [ No intrahepatic biliary duct dilatation.] Gallbladder: Cholecystectomy. Common bile duct: [ Normal caliber.] [ No stones.] Spleen: [ Within normal limits.] Pancreas: [ No mass. No pancreatic fluid collection.] Adrenals: [ No masses.] Kidneys: [ No masses. No hydronephrosis.][ ] Lymph nodes: [ No adenopathy in the abdomen or pelvis.] Stomach, small bowel and colon: [ No bowel wall thickening or obstruction.] Mild thickening of the loredo of the transverse, descending and proximal sigmoid colon. Differential includes incomplete bowel wall distention or colitis. Peritoneum cavity: [ No mesenteric fat stranding or fluid.] Bladder: Moderate concentric thickening of the loredo of the mildly distended bladder. Prostate gland is mildly enlarged partially calcified. Osseous structures: [ No acute fracture.] [ Multilevel degenerative change in the visualized spine.] Cervical hardware. Abdominal aorta: [ No aneurysm.] Additional findings: [ None of significance.] IMPRESSION: 1. Small pulmonary embolism in the lingular artery.] , a provider working with the patient, was notified about the findings on 11/16/2024 at 4:40 PM Eastern standard time by Dr. Villafuerte, read back occurred. 2. There is a 1.1 cm pulmonary nodule in the right lower lobe. A PET/CT and/or biopsy is recommended. 3. Mild thickening of the loredo of the transverse, descending and proximal sigmoid colon. Differential includes incomplete bowel wall distention or colitis. 4. Moderate concentric thickening of the loredo of the mildly distended bladder. Differential includes incomplete bladder wall distention versus cystitis. Review of Systems 2 Constitutional: Constitutional: Reports no additional constitutional complaints Eyes: Eyes: Reports no additional eye complaints ENT: Reports system reviewed and no additional complaints, except as documented Cardiovascular: Cardiovascular: Reports no additional cardiovascular complaints Respiratory: Respiratory: Reports no additional respiratory complaints Gastrointestinal: Gastrointestinal: Reports no additional gastrointestinal complaints Musculoskeletal: Musculoskeletal: Reports no additional musculoskeletal complaints Neurologic: Reports system reviewed and no additional complaints, except as documented Psychiatric: Psychiatric: Reports no additional psychiatric complaints Endocrine: Endocrine: Reports no additional endocrine complaints Hematologic/Lymphatic: Hematologic/Lymphatic: Reports no additional hematologic/lymphatic complaints Allergic/Immunologic: Allergic/Immunologic: Reports no additional allergic/immunologic complaints [facility] Family History Family History Mother Patient's mother is in good health Hypertension Family history of elevated blood lipids Family history of irritable bowel syndrome Sibling Patient's sister is in good health Father Malignant neoplasm of prostate, Onset Age: 60 Family history of elevated blood lipids Patient's father is in good health Grandparent Diabetes mellitus Social History Social History Smoking status: Never smoker Alcohol intake: current Substance use: never Lack of Transportation: No Lack of Food: Never True Current Housing: I Have Housing Concerned About Future Housing: No Difficulty Paying Gas/Electric Bills: No Difficulty Paying for Meds: No Currently Unemployed: No Education: Associate Degree Difficulty w/ Childcare or Family Care: No Spiritual care concerns: No Meds Home Medications and Allergies Home Medications ?Medication ?Instructions ?Recorded ?Confirmed ?Type apixaban 5 mg tablet (Eliquis) 5 mg PO BID 11/16/24 History fluticasone 500 mcg-salmeterol 50 1 inh inhalation Q12 H 11/16/24 11/16/24 History mcg/dose blistr powdr for inhalation (Advair Diskus) fluticasone propionate 50 2 spray intranasal DAILY PRN 11/16/24 11/16/24 History mcg/actuation nasal allergy symptoms spray,suspension (24 Hour Allergy Relief) lisinopril 10 mg tablet 10 mg PO DAILY 11/16/2411/07 History metoprolol succinate 25 mg 25 mg PO DAILY 11/16/2412/01 History tablet,extended release 24 hr omeprazole 20 mg capsule,delayed 20 mg PO DAILY 11/16/24 History release tamsulosin 0.4 mg capsule 0.4 mg PO HS 11/16/24 History tiotropium bromide 18 mcg capsule 1 cap inhalation THERESA LY 11/16/24 11/16/24 History with inhalation device (Spiriva with HandiHaler) Allergies Allergy/AdvReac Type Severity Reaction Status Date / Time meperidine (From Demerol) Allergy Mild Nausea Verified 11/16/24 20:16 codeine Allergy Unknown Nausea Verified 10/28/24 09:42 atorvastatin Allergy Other Verified 10/28/24 09:42 cephalexin Allergy Hives Verified 10/28/24 09:42 doxycycline Allergy Rash Verified 10/28/24 09:42 Vital Signs Vital Signs - 24 hr 11/16/24 14:24 11/16/24 14:32 11/16/24 14:32 Temperature Pulse Rate 96 87 Respiratory Rate 14 Blood Pressure 141/100 H Pulse Oximetry Oxygen Delivery Room Air 11/16/24 14:34 11/16/24 14:45 11/16/24 14:46 Temperature Pulse Rate 88 80 79 Respiratory Rate 14 17 15 Blood Pressure 142/101 H 136/88 Pulse Oximetry 100 100 99 Oxygen Delivery 11/16/24 15:00 11/16/24 15:01 11/16/24 15:15 Temperature Pulse Rate 84 82 86 Respiratory Rate 13 18 11 L Blood Pressure 134/86 Pulse Oximetry 97 99 98 Oxygen Delivery 11/16/24 15:16 11/16/24 15:26 11/16/24 15:30 Temperature Pulse Rate 95 86 Respiratory Rate 17 Blood Pressure 144/82 H Pulse Oximetry 99 98 Oxygen Delivery 11/16/24 15:45 11/16/24 18:05 11/16/24 18:21 Temperature Pulse Rate Respiratory Rate Blood Pressure Pulse Oximetry 97 97 99 Oxygen Delivery 11/16/24 18:30 11/16/24 18:45 11/16/24 18:50 Temperature Pulse Rate 79 Respiratory Rate 20 Blood Pressure 144/86 H Pulse Oximetry 97 98 99 Oxygen Delivery 11/16/24 19:00 11/16/24 19:29 11/16/24 20:00 Temperature 36.7 C Pulse Rate 81 77 Respiratory Rate 16 Blood Pressure 155/85 H Pulse Oximetry 99 98 Oxygen Delivery Room Air 11/16/24 23:14 11/16/24 23:15 11/16/24 23:28 Temperature 36.9 C Pulse Rate 76 79 Respiratory Rate 20 18 Blood Pressure 131/80 Pulse Oximetry 98 96 Oxygen Delivery Room Air 11/17/24 00:00 11/17/24 02:00 11/17/24 03:42 Temperature Pulse Rate 79 78 Respiratory Rate Blood Pressure Pulse Oximetry 98 Oxygen Delivery Room Air 11/17/24 04:00 11/17/24 04:00 11/17/24 05:56 Temperature 36.4 C Pulse Rate 63 82 62 Respiratory Rate 18 Blood Pressure 113/59 L Pulse Oximetry 96 Oxygen Delivery Exam 2 Const: General: cooperative, healthy appearing and comfortable O rientation/consciousness: oriented to person, oriented to place and oriented to time HENMT: Head: normal to inspection Ears: hearing grossly normal bilaterally Eyes: General: appearance normal, both eyes and all related structures Neck: Neck: normal visual inspection Chest: Chest palpation & inspection: normal inspection of the chest Resp: Effort & Inspection: normal respiratory effort and able to speak in complete sentences Auscultation: no crackles, no rales, no rhonchi, no wheezes and lung sounds not diminished Cardio: Jugular venous distension: no JVD GI: Inspection: normal to inspection GI Palp: No abdominal tenderness Skin: General skin exam: normal color Neuro: General: oriented to person, oriented to place and oriented to time Extrem: General: normal to inspection Other: no edema Psych: Appearance: grossly normal Results Laboratory Findings 11/17/24 08:00 11/17/24 08:00 ABG, PT/INR, D-dimer: PT/INR, D-dimer PT 13.9 Seconds (11.1-14.7) 11/16/24 14:40 INR 1.1 11/16/24 14:40 Abnormal lab findings: Abnormal Labs 11/16/24 11/16/24 11/17/24 14:40 17:44 00:16 WBC [place] % (Auto) 8.7 H APTT 153.2 H Sodium 136 L Glucose 128 H ALT 55 H Cholesterol Urine Glucose (UA) Trace H 11/17/24 08:00 WBC 4.4 L [place] % (Auto) 10.2 H APTT Sodium 135 L Glucose ALT Cholesterol 229 H Urine Glucose (UA) Diagnostic Findings Additional studies: ITS Impressions Chest X-Ray 11/16/24 15:30 Impression: No acute cardiopulmonary abnormality. Venous Doppler Study 11/16/24 16:39 Impression: Left popliteal DVT Chest/Abdomen/Pelvis CTA 11/16/24 16:42
[2024-11-17] MEDS: UMECLIDINIUM BROMIDE 62.5 MCG ELLIPTA 1 PUFF INHALATION (08:28)
[2024-11-17] MEDS: FLUTICASONE/SALMETEROL 230-21 MCG INHALER 1 PUFF 2 PUFF INHALATION ×2 (08:28→20:01)
[2024-11-17 08:34] LABS: Partial Thromboplastin Time 64.0 Seconds (22.3-36.8)
[2024-11-17] MEDS: METOPROLOL SUCCINATE EXT REL 25 MG TABCR PO (09:34)
[2024-11-17] MEDS: PANTOPRAZOLE 40 MG TABLET PO (09:35)
--- NOTE | 2024-11-17 09:51 | P.PNIM_ITS ---
Progress Note: A&P Assessment and Plan (1) Pulmonary embolism: Code(s): I26.99 - Other pulmonary embolism without acute cor pulmonale Status: Acute Assessment and Plan: Small pulmonary embolism in the lingular artery. Patient was already on Eliquis 5 mg b.i.d. at home Heparin drip per protocol Hematology consulted for possible blood disorder Patient educated on not crossing his legs Follow 2D Echo (2) DVT (deep venous thrombosis): Code(s): I82.409 - Acute embolism and thrombosis of unspecified deep veins of unspecified lower extremity Status: Acute Assessment and Plan: Left popliteal DVT (3) Chest pain: Code(s): R07.9 - Chest pain, unspecified Status: Acute Assessment and Plan: Likely due to pulmonary embolism Trend troponins EKG p.r.n. Nitro Echo pending Lipid panel Telemetry monitoring Patient already on heparin drip for DVT and PE (4) Pulmonary nodule: Code(s): R91.1 - Solitary pulmonary nodule Status: Acute Assessment and Plan: CT shows There is a 1.1 cm pulmonary nodule in the right lower lobe. A PET/CT and/or biopsy is recommended. 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 Records requested from outside hospital (5) Colon wall thickening: Code(s): K63.9 - Disease of intestine, unspecified Status: Acute Assessment and Plan: CT showed Mild thickening of the loredo of the transverse, descending and proximal sigmoid colon. Differential includes incomplete bowel wall distention or colitis. 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 Had extensive hematology workup for PE and DVT without revealing. Is on Eliquis indefinitely. Now presented with left calf pain found to have a popliteal deep vein thrombosis and small lingular lobe PE. Overnight, no acute events. Chest pain seems easy out. No fever or cough. He was getting Echocardiogram. Review of Systems Review of Systems: All systems reviewed & are unremarkable except as noted in HPI and below Exam Narrative: APPEARANCE: Obese, no acute distress. EYES: EOMI HEENT: Normocephalic, atraumatic, OMM RESPIRATORY: No respiratory distress Clear to auscultation bilaterally with no rhonchi wheezing or rales. CARDIOVASCULAR: RRR, S1 and S2 without murmurs rubs or gallops. ABDOMINAL: Soft, nontender, nondistended, no rebound or guarding MSK: No issues NEURO: Awake and alert. Following commands, speech normal, no focal deficits SKIN:: Warm, dry. No rashes lesions or abrasions PSYCHIATRIC: Normal affect/mood, Objective Data Vital Signs Vital Signs: Vital Signs - 24 hr 11/16/24 14:24 11/16/24 14:32 11/16/24 14:32 Temperature Pulse Rate 96 87 Respiratory Rate 14 Blood Pressure 141/100 H Pulse Oximetry Oxygen Delivery Room Air 11/16/24 14:34 11/16/24 14:45 11/16/24 14:46 Temperature Pulse Rate 88 80 79 Respiratory Rate 14 17 15 Blood Pressure 142/101 H 136/88 Pulse Oximetry 100 100 99 Oxygen Delivery 11/16/24 15:00 11/16/24 15:01 11/16/24 15:15 Temperature Pulse Rate 84 82 86 Respiratory Rate 13 18 11 L Blood Pressure 134/86 Pulse Oximetry 97 99 98 Oxygen Delivery 11/16/24 15:16 11/16/24 15:26 11/16/24 15:30 Temperature Pulse Rate 95 86 Respiratory Rate 17 Blood Pressure 144/82 H Pulse Oximetry 99 98 Oxygen Delivery 11/16/24 15:45 11/16/24 18:05 11/16/24 18:21 Temperature Pulse Rate Respiratory Rate Blood Pressure Pulse Oximetry 97 97 99 Oxygen Delivery 11/16/24 18:30 11/16/24 18:45 11/16/24 18:50 Temperature Pulse Rate 79 Respiratory Rate 20 Blood Pressure 144/86 H Pulse Oximetry 97 98 99 Oxygen Delivery 11/16/24 19:00 11/16/24 19:29 11/16/24 20:00 Temperature 36.7 C Pulse Rate 81 77 Respiratory Rate 16 Blood Pressure 155/85 H Pulse Oximetry 99 98 Oxygen Delivery Room Air 11/16/24 23:14 11/16/24 23:15 11/16/24 23:28 Temperature 36.9 C Pulse Rate 76 79 Respiratory Rate 20 18 Blood Pressure 131/80 Pulse Oximetry 98 96 Oxygen Delivery Room Air 11/17/24 00:00 11/17/24 02:00 11/17/24 03:42 Temperature Pulse Rate 79 78 Respiratory Rate Blood Pressure Pulse Oximetry 98 Oxygen Delivery Room Air 11/17/24 04:00 11/17/24 04:00 11/17/24 05:56 Temperature 36.4 C Pulse Rate 63 82 62 Respiratory Rate 18 Blood Pressure 113/59 L Pulse Oximetry 96 Oxygen Delivery 11/17/24 08:00 11/17/24 08:31 11/17/24 08:31 Temperature 36.5 C Pulse Rate 63 73 73 Respiratory Rate 16 20 20 Blood Pressure 138/73 Pulse Oximetry 98 98 Oxygen Delivery Room Air 11/17/24 09:34 Temperature Pulse Rate 75 Respiratory Rate Blood Pressure Pulse Oximetry Oxygen Delivery Intake/Output Intake/Output: Intake & Output 11/14/24 11/15/24 11/16/24 11/17/24 23:59 23:59 23:59 23:59 Intake Total 864.0 Balance 864.0 Meds/Results Medications: Active Medications Generic Name Dose Route Start Last Admin Trade Name Freq PRN Reason Stop Dose Admin Acetaminophen 650 mg 11/16/24 17:40 Acetaminophen 325 Mg Tablet PO Q4H PRN Mild Pain (1-3) or Fever Hydrocodone Bitart/Acetaminophen 1 tab 11/16/24 17:40 Hydrocodone/Acetaminophen (*Crx) 5-325 Mg Tablet PO Q4H PRN Moderate Pain (4-6) Heparin Sodium (Porcine) 7,000 units 11/16/24 17:34 Heparin Sodium 5,000 Units/Ml Vial IV PUSH PRN PRN aPTT less than 55 seconds Heparin Sodium (Porcine) 3,500 units 11/16/24 17:34 11/17/24 09:30 Heparin Sodium 5,000 Units/Ml Vial IV PUSH 3,500 units PRN PRN Administration aPTT 55 - 70 seconds Heparin Sodium/Dextrose 25,000 units in 250 mls @ 14 mls/hr 11/16/24 17:35 11/17/24 09:31 Heparin Sodium/D5w 100 Units/Ml IV CONT 1,400 units/hr .[id number] TIAGO 14 mls/hr Protocol Titration 1,400 UNITS/HR Lisinopril 10 mg 11/17/24 09:00 11/17/24 09:35 Lisinopril 10 Mg Tablet PO 10 mg DAILY TIAGO Administration Metoprolol Succinate 25 mg 11/17/24 09:00 11/17/24 09:34 Metoprolol Succinate Ext Rel 25 Mg Tabcr PO 25 mg DAILY TIAGO Administration Nitroglycerin 0.4 mg 11/16/24 17:42 Nitroglycerin Sl 0.4 Mg Tablet SUBLINGUAL Q5MIN PRN Chest Pain Pantoprazole Sodium 40 mg 11/17/24 09:00 11/17/24 09:35 Pantoprazole 40 Mg Tablet PO 40 mg QAM TIAGO Administration Perflutren Lipid Microsphere 0 ml 11/16/24 17:42 Perflutren Lipid Microspheres 1.5 Ml Vial Diluted To 10 Ml Total Volume IV PUSH 11/19/24 17:42 ONCE PRN adequate visualization Protocol Fluticasone/Salmeterol 2 puff 11/16/24 21:05 11/17/24 08:28 Fluticasone/Salmeterol 230-21 Mcg Inhaler 1 Puff INHALATION 2 puff Q12HRT TIAGO Administration Senna/Docusate Sodium 1 tab 11/16/24 21:00 11/16/24 22:54 Senna/Docusate Sodium Tablet PO Not Given HS TIAGO Tamsulosin HCl 0.4 mg 11/16/24 21:00 11/16/24 22:54 Tamsulosin Hcl 0.4 Mg Capsule PO 0.4 mg HS TIAGO Administration Umeclidinium Michael 1 puff 11/17/24 09:00 11/17/24 08:28 Umeclidinium Michael 62.5 Mcg Ellipta INHALATION 1 puff DAILY TIAGO Administration Radiology Results: ITS Impressions Chest X-Ray 11/16/24 15:30 Impression: No acute cardiopulmonary abnormality. Venous Doppler Study 11/16/24 16:39 Impression: Left popliteal DVT Chest/Abdomen/Pelvis CTA 11/16/24 16:42 IMPRESSION: 1. Small pulmonary embolism in the lingular artery.] , a provider working with the patient, was notified about the findings on 11/16/2024 at 4:40 PM Eastern standard time by Dr. Villafuerte, read back occurred. 2. There is a 1.1 cm pulmonary nodule in the right lower lobe. A PET/CT and/or biopsy is recommended. 3. Mild thickening of the loredo of the transverse, descending and proximal sigmoid colon. Differential includes incomplete bowel wall distention or colitis. 4. Moderate concentric thickening of the loredo of the mildly distended bladder. Differential includes incomplete bladder wall distention versus cystitis. Labs Labs: Laboratory Results - last 24 hr 11/16/24 11/16/24 11/16/24 14:40 17:42 17:44 WBC 4.7 RBC 5.43 Hgb 16.9 Hct 48.0 MCV 88.4 MCH 31.1 MCHC 35.2 RDW 12.2 Plt Count 226 MPV 8.9 Immature Gran % (Auto) 0.2 Neut % (Auto) 52.6 Lymph % (Auto) 36.0 [place] % (Auto) 8.7 H Eos % (Auto) 2.1 Baso % (Auto) 0.4 Lymph # (Auto) 1.69 [place] # (Auto) 0.4 Eos # (Auto) 0.1 Baso # (Auto) 0.0 Abs Immat Gran (auto) 0.01 Absolute Neuts (auto) 2.5 Absolute Nucleated RBC 0.000 Nucleated RBC % 0.0 PT 13.9 INR 1.1 APTT 25.0 Sodium 136 L Potassium 3.7 Chloride 104 Carbon Dioxide 25 Anion Gap 7 BUN 14 Creatinine 1.21 Estim Creat Clear Calc 77 Estimated GFR > 60 Glucose 128 H Calcium 9.1 Total Bilirubin 1.3 AST 41 ALT 55 H Alkaline Phosphatase 64 Troponin I < 0.012 < 0.012 Total Protein 8.2 Albumin 4.4 Triglycerides Cholesterol LDL Cholesterol Direct HDL Direct Lipase 65 Urine Color Yellow Urine Appearance Clear Urine pH 5.0 Ur Specific [place] 1.012 Urine Protein Negative Urine Glucose (UA) Trace H Urine Ketones Negative Ur Blood (Man) Negative Urine Nitrate Negative Urine Bilirubin Negative Urine Urobilinogen 0.2 Leukocyte Esterase Rfl Negative 11/16/24 11/17/24 11/17/24 20:36 00:16 08:00 WBC 4.4 L RBC 5.29 Hgb 16.3 Hct 46.7 MCV 88.3 MCH 30.8 MCHC 34.9 RDW 12.2 Plt Count 200 MPV 9.0 Immature Gran % (Auto) 0.5 Neut % (Auto) 51.8 Lymph % (Auto) 35.3 [place] % (Auto) 10.2 H Eos % (Auto) 2.0 Baso % (Auto) 0.2 Lymph # (Auto) 1.56 [place] # (Auto) 0.5 Eos # (Auto) 0.1 Baso # (Auto) 0.0 Abs Immat Gran (auto) 0.02 Absolute Neuts (auto) 2.3 Absolute Nucleated RBC 0.000 Nucleated RBC % 0.0 PT INR APTT 153.2 H 64.0 H Sodium 135 L Potassium 3.9 Chloride 106 Carbon Dioxide 24 Anion Gap 5 BUN 13 Creatinine 1.03 Estim Creat Clear Calc 88 Estimated GFR > 60 Glucose 110 Calcium 8.8 Total Bilirubin AST ALT Alkaline Phosphatase Troponin I < 0.012 Total Protein Albumin Triglycerides 109 Cholesterol 229 H LDL Cholesterol Direct 130 HDL Direct 41 Lipase Urine Color Urine Appearance Urine pH Ur Specific [place] Urine Protein Urine Glucose (UA) Urine Ketones Ur Blood (Man) Urine Nitrate Urine Bilirubin Urine Urobilinogen Leukocyte Esterase Rfl Quality VTE Prophylaxis VTE prophylaxis: mechanical ordered and pharmacologic ordered
[2024-11-17 10:18] LABS: NT Pro B Type Natriuretic Pept 31 pg/mL (19.9-100)
[2024-11-17] MEDS: ACETAMINOPHEN 325 MG TABLET 650 MG PO (11:20)
[2024-11-17] MEDS: HEPARIN SOD/D5W 100 UNITS/ML 25,000 UNITS/250 ML BAG 14 UNITS IV CONT (13:31)
[2024-11-17 15:44] LABS: Partial Thromboplastin Time 82.9 Seconds (22.3-36.8)
[2024-11-17] MEDS: TAMSULOSIN HCL 0.4 MG CAPSULE PO (21:13)
[2024-11-17 21:52] LABS: Partial Thromboplastin Time 76.3 Seconds (22.3-36.8)
[2024-11-18] VITALS (20 sets, daily range): BP systolic 112–128; BP diastolic 61–68; PULSE 54–87; RESP 14–20; TEMP 36.6–36.9; O2SAT 96–98
[2024-11-18 04:47] LABS: Hematocrit 44.7 % (42.0-52.0); Hemoglobin 15.7 g/dL (14.0-18.0); Immature Granulocyte Percent A 0.5 % (0-0.5); Lymphocytes Absolute Auto 2.38 K/mm3 (0.9-3.2); Mean Corpuscular HGB Conc 35.1 g/dl (32-36); Mean Corpuscular Hemoglobin 31.0 pg (26-34); Mean Corpuscular Volume 88.3 fl (80-100); Nucleated Red Blood Cells Absolute Auto 0.000 K/mm3 (0.0-0.012); Nucleated Red Blood Cells Perc 0.0 % (0.0-0.2); Platelet Count Result 197 k/mm3 (150-375); Red Blood Count 5.06 M/mm3 (4.6-6.20); White Blood Count 5.7 K/mm3 (4.5-10.0)
[2024-11-18 04:59] LABS: Partial Thromboplastin Time 89.5 Seconds (22.3-36.8)
[2024-11-18 05:09] LABS: Hemoglobin A1C 5.4 % (<5.7)
[2024-11-18 05:11] LABS: Anion Gap 6 mmol/L (4-12); Blood Urea Nitrogen 15 mg/dL (9-20); Calcium 8.7 mg/dL (8.4-10.2); Carbon Dioxide 28 mmol/L (22-30); Chloride 102 mmol/L (98-107); Estimated CRCL calculation 75 ml/min; Estimated Glomerular Filt Rate > 60; Glucose 111 mg/dL (65-110); Potassium 3.3 mmol/L (3.4-5.0); Sodium 136 mmol/L (137-145)
[2024-11-18] MEDS: HEPARIN SOD/D5W 100 UNITS/ML 25,000 UNITS/250 ML BAG 14 UNITS IV CONT (06:42)
[2024-11-18] MEDS: METOPROLOL SUCCINATE EXT REL 25 MG TABCR PO (08:08)
[2024-11-18] MEDS: PANTOPRAZOLE 40 MG TABLET PO (08:09)
--- NOTE | 2024-11-18 08:49 | P.PNIM_ITS ---
Progress Note: A&P Assessment and Plan (1) Pulmonary embolism: Code(s): I26.99 - Other pulmonary embolism without acute cor pulmonale Status: Acute Assessment and Plan: Small pulmonary embolism in the lingular artery. Patient was already on Eliquis 5 mg b.i.d. at home. 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 Had extensive workup in his prior history of PE and DVT without revealing. Was determined to be on Eliquis indefinitely. Hematology consulted, appreciate rec Continue heparin drip per protocol Awaiting Hematology recommendation, likely switch heparin to Xarelto prior to discharge and hematology follow-up as outpatient 2D Echo 11/17/2024 1. Complete two-dimensional, color flow and Doppler transthoracic echocardiogram is performed. 2. Left ventricular chamber dimension is normal. 3. Left ventricular systolic function is normal, estimated at 60-65. 4. There is mildly increased left ventricular wall thickness. 5. The left ventricular diastolic function is grade I diastolic dysfunction. 6. Right ventricular chamber dimension is normal. 7. Right ventricular systolic function is normal. 8. Left atrial chamber dimension is mildly enlarged. 9. There is mild aortic valve sclerosis. (2) DVT (deep venous thrombosis): Code(s): I82.409 - Acute embolism and thrombosis of unspecified deep veins of unspecified lower extremity Status: Acute Assessment and Plan: Left popliteal DVT management like above (3) Chest pain: Code(s): R07.9 - Chest pain, unspecified Status: Acute Assessment and Plan: Chest pain resolved Troponin negative x3 2D echo is normal-summary attached above (4) Pulmonary nodule: Code(s): R91.1 - Solitary pulmonary nodule Status: Acute Assessment and Plan: CT shows There is a 1.1 cm pulmonary nodule in the right lower lobe. A PET/CT and/or biopsy is recommended. 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 Records requested from outside hospital (5) Colon wall thickening: Code(s): K63.9 - Disease of intestine, unspecified Status: Acute Assessment and Plan: CT showed Mild thickening of the loredo of the transverse, descending and proximal sigmoid colon. Differential includes incomplete bowel wall distention or colitis. 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 Had extensive hematology workup for PE and DVT without revealing. Is on Eliquis indefinitely. Now presented with left calf pain found to have a popliteal deep vein thrombosis and small lingular lobe PE. 11/18/24 Leg pain improved. Chest pain improved. Heparin drip resumed. D/w with hematology OSH and will keep therapeutic heparin going until our hematology see pt. Will switch heparin to xarelto prior to discharge. Review of Systems Review of Systems: All systems reviewed & are unremarkable except as noted in HPI and below Exam Narrative: APPEARANCE: Obese, no acute distress. EYES: EOMI HEENT: Normocephalic, atraumatic, OMM RESPIRATORY: No respiratory distress Clear to auscultation bilaterally with no rhonchi wheezing or rales. CARDIOVASCULAR: RRR, S1 and S2 without murmurs rubs or gallops. ABDOMINAL: Soft, nontender, nondistended, no rebound or guarding MSK: No issues NEURO: Awake and alert. Following commands, speech normal, no focal deficits SKIN:: Warm, dry. No rashes lesions or abrasions PSYCHIATRIC: Appropriate mood Objective Data Vital Signs Vital Signs: Vital Signs - 24 hr 11/17/24 09:34 11/17/24 10:00 11/17/24 12:00 Temperature 36.7 C Pulse Rate 75 78 77 Respiratory Rate 16 Blood Pressure 135/87 Pulse Oximetry 97 Oxygen Delivery 11/17/24 12:00 11/17/24 14:00 11/17/24 15:45 Temperature 36.7 C Pulse Rate 77 82 73 Respiratory Rate 18 Blood Pressure 137/78 Pulse Oximetry 97 Oxygen Delivery 11/17/24 16:00 11/17/24 20:00 11/17/24 20:00 Temperature 36.7 C Pulse Rate 73 67 Respiratory Rate 14 Blood Pressure 139/83 Pulse Oximetry 95 Oxygen Delivery Room Air 11/17/24 20:00 11/17/24 20:03 11/18/24 00:00 Temperature 36.7 C Pulse Rate 65 77 77 Respiratory Rate 16 14 Blood Pressure 112/66 Pulse Oximetry 98 Oxygen Delivery 11/18/24 00:00 11/18/24 00:00 11/18/24 02:00 Temperature Pulse Rate 61 65 Respiratory Rate Blood Pressure Pulse Oximetry Oxygen Delivery Room Air 11/18/24 03:25 11/18/24 04:00 11/18/24 04:00 Temperature 36.7 C Pulse Rate 57 L 54 L Respiratory Rate 14 Blood Pressure 121/61 Pulse Oximetry 98 Oxygen Delivery Room Air 11/18/24 06:00 11/18/24 07:55 11/18/24 08:00 Temperature 36.9 C Pulse Rate 59 L 65 70 Respiratory Rate 17 Blood Pressure 123/66 Pulse Oximetry 97 Oxygen Delivery 11/18/24 08:08 Temperature Pulse Rate 70 Respiratory Rate Blood Pressure Pulse Oximetry Oxygen Delivery Intake/Output Intake/Output: Intake & Output 11/15/24 11/16/24 11/17/24 11/18/24 23:59 23:59 23:59 23:59 Intake Total 1664.8 565.2 Output Total 300 Balance 1364.8 565.2 Meds/Results Medications: Active Medications Generic Name Dose Route Start Last Admin Trade Name Freq PRN Reason Stop Dose Admin Acetaminophen 650 mg 11/16/24 17:40 11/17/24 11:20 Acetaminophen 325 Mg Tablet PO 650 mg Q4H PRN Administration Mild Pain (1-3) or Fever Hydrocodone Bitart/Acetaminophen 1 tab 11/16/24 17:40 Hydrocodone/Acetaminophen (*Crx) 5-325 Mg Tablet PO Q4H PRN Moderate Pain (4-6) Heparin Sodium (Porcine) 7,000 units 11/16/24 17:34 Heparin Sodium 5,000 Units/Ml Vial IV PUSH PRN PRN aPTT less than 55 seconds Heparin Sodium (Porcine) 3,500 units 11/16/24 17:34 11/17/24 09:30 Heparin Sodium 5,000 Units/Ml Vial IV PUSH 3,500 units PRN PRN Administration aPTT 55 - 70 seconds Heparin Sodium/Dextrose 25,000 units in 250 mls @ 14 mls/hr 11/16/24 17:35 11/18/24 06:42 Heparin Sodium/D5w 100 Units/Ml IV CONT 1,400 units/hr .[id number] TIAGO 14 mls/hr Protocol Administration 1,400 UNITS/HR Lisinopril 10 mg 11/17/24 09:00 11/18/24 08:09 Lisinopril 10 Mg Tablet PO 10 mg DAILY TIAGO Administration Metoprolol Succinate 25 mg 11/17/24 09:00 11/18/24 08:08 Metoprolol Succinate Ext Rel 25 Mg Tabcr PO 25 mg DAILY TIAGO Administration Nitroglycerin 0.4 mg 11/16/24 17:42 Nitroglycerin Sl 0.4 Mg Tablet SUBLINGUAL Q5MIN PRN Chest Pain Pantoprazole Sodium 40 mg 11/17/24 09:00 11/18/24 08:09 Pantoprazole 40 Mg Tablet PO 40 mg QAM TIAGO Administration Perflutren Lipid Microsphere 0 ml 11/16/24 17:42 Perflutren Lipid Microspheres 1.5 Ml Vial Diluted To 10 Ml Total Volume IV PUSH 11/19/24 17:42 ONCE PRN adequate visualization Protocol Fluticasone/Salmeterol 2 puff 11/16/24 21:05 11/17/24 20:01 Fluticasone/Salmeterol 230-21 Mcg Inhaler 1 Puff INHALATION 2 puff Q12HRT TIAGO Administration Senna/Docusate Sodium 1 tab 11/16/24 21:00 11/17/24 21:13 Senna/Docusate Sodium Tablet PO Not Given HS TIAGO Tamsulosin HCl 0.4 mg 11/16/24 21:00 11/17/24 21:13 Tamsulosin Hcl 0.4 Mg Capsule PO 0.4 mg HS TIAGO Administration Umeclidinium Isabella 1 puff 11/17/24 09:00 11/17/24 08:28 Umeclidinium Isabella 62.5 Mcg Ellipta INHALATION 1 puff DAILY TIAGO Administration Radiology Results: ITS Impressions Chest X-Ray 11/16/24 15:30 Impression: No acute cardiopulmonary abnormality. Venous Doppler Study 11/16/24 16:39 Impression: Left popliteal DVT Chest/Abdomen/Pelvis CTA 11/16/24 16:42 IMPRESSION: 1. Small pulmonary embolism in the lingular artery.] , a provider working with the patient, was notified about the findings on 11/16/2024 at 4:40 PM Eastern standard time by Dr. Villafuerte, read back occurred. 2. There is a 1.1 cm pulmonary nodule in the right lower lobe. A PET/CT and/or biopsy is recommended. 3. Mild thickening of the loredo of the transverse, descending and proximal sigmoid colon. Differential includes incomplete bowel wall distention or colitis. 4. Moderate concentric thickening of the loredo of the mildly distended bladder. Differential includes incomplete bladder wall distention versus cystitis. Labs Labs: Laboratory Results - last 24 hr 11/17/24 11/17/24 11/17/24 08:00 15:27 21:35 WBC RBC Hgb Hct MCV MCH MCHC RDW Plt Count MPV Immature Gran % (Auto) Neut % (Auto) Lymph % (Auto) [place] % (Auto) Eos % (Auto) Baso % (Auto) Lymph # (Auto) [place] # (Auto) Eos # (Auto) Baso # (Auto) Abs Immat Gran (auto) Absolute Neuts (auto) Absolute Nucleated RBC Nucleated RBC % APTT 82.9 H 76.3 H Sodium Potassium Chloride Carbon Dioxide Anion Gap BUN Creatinine Estim Creat Clear Calc Estimated GFR Glucose Hemoglobin A1c Calcium NT-Pro-B Natriuret Pep 31 11/18/24 04:39 WBC 5.7 RBC 5.06 Hgb 15.7 Hct 44.7 MCV 88.3 MCH 31.0 MCHC 35.1 RDW 12.4 Plt Count 197 MPV 9.0 Immature Gran % (Auto) 0.5 Neut % (Auto) 45.9 Lymph % (Auto) 41.8 [place] % (Auto) 9.7 H Eos % (Auto) 1.9 Baso % (Auto) 0.2 Lymph # (Auto) 2.38 [place] # (Auto) 0.6 Eos # (Auto) 0.1 Baso # (Auto) 0.0 Abs Immat Gran (auto) 0.03 Absolute Neuts (auto) 2.6 Absolute Nucleated RBC 0.000 Nucleated RBC % 0.0 APTT 89.5 H Sodium 136 L Potassium 3.3 L Chloride 102 Carbon Dioxide 28 Anion Gap 6 BUN 15 Creatinine 1.22 Estim Creat Clear Calc 75 Estimated GFR > 60 Glucose 111 H Hemoglobin A1c 5.4 Calcium 8.7 NT-Pro-B Natriuret Pep Quality VTE Prophylaxis VTE prophylaxis: mechanical ordered and pharmacologic ordered
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
[2024-11-18] MEDS: UMECLIDINIUM BROMIDE 62.5 MCG ELLIPTA 1 PUFF INHALATION (09:29)
[2024-11-18] MEDS: FLUTICASONE/SALMETEROL 230-21 MCG INHALER 1 PUFF 2 PUFF INHALATION ×2 (09:29→20:17)
[2024-11-18] MEDS: SENNA/DOCUSATE SODIUM TABLET 1 TAB PO (22:11)
[2024-11-18] MEDS: TAMSULOSIN HCL 0.4 MG CAPSULE PO (22:12)
[2024-11-18] MEDS: ACETAMINOPHEN 325 MG TABLET 650 MG PO (22:14)
[2024-11-19] VITALS (15 sets, daily range): BP systolic 106–140; BP diastolic 51–84; PULSE 67–85; RESP 12–20; TEMP 36.4–36.8; O2SAT 97–98
[2024-11-19] MEDS: HEPARIN SOD/D5W 100 UNITS/ML 25,000 UNITS/250 ML BAG 14 UNITS IV CONT ×3 (02:37→19:52)
[2024-11-19 04:53] LABS: Hematocrit 43.7 % (42.0-52.0); Hemoglobin 14.7 g/dL (14.0-18.0); Immature Granulocyte Percent A 0.4 % (0-0.5); Lymphocytes Absolute Auto 2.05 K/mm3 (0.9-3.2); Mean Corpuscular HGB Conc 33.6 g/dl (32-36); Mean Corpuscular Hemoglobin 30.6 pg (26-34); Mean Corpuscular Volume 90.9 fl (80-100); Nucleated Red Blood Cells Absolute Auto 0.000 K/mm3 (0.0-0.012); Nucleated Red Blood Cells Perc 0.0 % (0.0-0.2); Platelet Count Result 203 k/mm3 (150-375); Red Blood Count 4.81 M/mm3 (4.6-6.20); White Blood Count 5.7 K/mm3 (4.5-10.0)
[2024-11-19 05:08] LABS: Partial Thromboplastin Time 63.0 Seconds (22.3-36.8)
[2024-11-19 05:15] LABS: Anion Gap 7 mmol/L (4-12); Blood Urea Nitrogen 19 mg/dL (9-20); Calcium 8.6 mg/dL (8.4-10.2); Carbon Dioxide 23 mmol/L (22-30); Chloride 104 mmol/L (98-107); Estimated CRCL calculation 78 ml/min; Estimated Glomerular Filt Rate > 60; Glucose 168 mg/dL (65-110); Potassium 3.4 mmol/L (3.4-5.0); Sodium 134 mmol/L (137-145)
[2024-11-19] MEDS: UMECLIDINIUM BROMIDE 62.5 MCG ELLIPTA 1 PUFF INHALATION (08:50)
[2024-11-19] MEDS: FLUTICASONE/SALMETEROL 230-21 MCG INHALER 1 PUFF 2 PUFF INHALATION ×2 (08:50→20:26)
[2024-11-19] MEDS: METOPROLOL SUCCINATE EXT REL 25 MG TABCR PO (09:10)
[2024-11-19] MEDS: PANTOPRAZOLE 40 MG TABLET PO (09:10)
[2024-11-19] MEDS: POTASSIUM CHLORIDE 20 MEQ ER TABLET 40 MEQ PO (10:10)
[2024-11-19 12:28] LABS: Partial Thromboplastin Time 109.5 Seconds (22.3-36.8)
--- NOTE | 2024-11-19 18:11 | P.PNIM_ITS ---
Progress Note: A&P Assessment and Plan (1) Pulmonary embolism: Code(s): I26.99 - Other pulmonary embolism without acute cor pulmonale Status: Acute Assessment and Plan: Small pulmonary embolism in the lingular artery. Patient was already on Eliquis 5 mg b.i.d. at home. 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 Had extensive workup in his prior history of PE and DVT without revealing. Was determined to be on Eliquis indefinitely. Hematology consulted, appreciate rec Continue heparin drip per protocol Awaiting Hematology recommendation, likely switch heparin to Xarelto prior to discharge and hematology follow-up as outpatient 2D Echo 11/17/2024 1. Complete two-dimensional, color flow and Doppler transthoracic echocardiogram is performed. 2. Left ventricular chamber dimension is normal. 3. Left ventricular systolic function is normal, estimated at 60-65. 4. There is mildly increased left ventricular wall thickness. 5. The left ventricular diastolic function is grade I diastolic dysfunction. 6. Right ventricular chamber dimension is normal. 7. Right ventricular systolic function is normal. 8. Left atrial chamber dimension is mildly enlarged. 9. There is mild aortic valve sclerosis. (2) DVT (deep venous thrombosis): Code(s): I82.409 - Acute embolism and thrombosis of unspecified deep veins of unspecified lower extremity Status: Acute Assessment and Plan: Left popliteal DVT management like above (3) Chest pain: Code(s): R07.9 - Chest pain, unspecified Status: Acute Assessment and Plan: Chest pain resolved Troponin negative x3 2D echo is normal-summary attached above (4) Pulmonary nodule: Code(s): R91.1 - Solitary pulmonary nodule Status: Acute Assessment and Plan: CT shows There is a 1.1 cm pulmonary nodule in the right lower lobe. A PET/CT and/or biopsy is recommended. 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 Records requested from outside hospital (5) Colon wall thickening: Code(s): K63.9 - Disease of intestine, unspecified Status: Acute Assessment and Plan: CT showed Mild thickening of the loredo of the transverse, descending and proximal sigmoid colon. Differential includes incomplete bowel wall distention or colitis. Patient has no abdominal complaints Plan today patient was seen by Dr. Eden and communicated recommended to continue Lovenox 1mg/kg BID for four weeks, thereafter start Xarelto, and patient will be in his office in 4 weeks, patient also has a lung nodule and has been stable, seen by Dr. Ling recommended to repeat the chest scan to check for 2 yrs nodule stability. patient is clinically stable, his if present in the room and gave updates. 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 Had extensive hematology workup for PE and DVT without revealing. Is on Eliquis indefinitely. Now presented with left calf pain found to have a popliteal deep vein thrombosis and small lingular lobe PE. 11/18/24 Leg pain improved. Chest pain improved. Heparin drip resumed. D/w with hematology OSH and will keep therapeutic heparin going until our hematology see pt. Will switch heparin to xarelto prior to discharge. today patient was seen by Dr. Eden and communicated recommended to continue Lovenox 1mg/kg BID for four weeks, thereafter start Xarelto, and patient will be in his office in 4 weeks, patient also has a lung nodule and has been stable, seen by Dr. Ling recommended to repeat the chest scan to check for 2 yrs nodule stability. patient is clinically stable, his if present in the room and gave updates. Review of Systems Review of Systems: All systems reviewed & are unremarkable except as noted in HPI and below Exam Narrative: APPEARANCE: Obese, no acute distress. EYES: EOMI HEENT: Normocephalic, atraumatic, OMM RESPIRATORY: No respiratory distress Clear to auscultation bilaterally with no rhonchi wheezing or rales. CARDIOVASCULAR: RRR, S1 and S2 without murmurs rubs or gallops. ABDOMINAL: Soft, nontender, nondistended, no rebound or guarding MSK: No issues NEURO: Awake and alert. Following commands, speech normal, no focal deficits SKIN:: Warm, dry. No rashes lesions or abrasions PSYCHIATRIC: Appropriate mood Objective Data Vital Signs Vital Signs: Vital Signs - 24 hr 11/18/24 20:00 11/18/24 20:00 11/18/24 20:17 Temperature 36.6 C Pulse Rate 87 73 80 Respiratory Rate 14 16 Blood Pressure 128/67 Pulse Oximetry 98 Oxygen Delivery Fraction of Inspired Oxygen 11/18/24 20:20 11/18/24 21:55 11/18/24 22:00 Temperature Pulse Rate 80 87 86 Respiratory Rate 16 14 Blood Pressure Pulse Oximetry 97 98 Oxygen Delivery Room Air Room Air Fraction of Inspired Oxygen 11/18/24 23:40 11/19/24 00:00 11/19/24 00:00 Temperature 36.7 C Pulse Rate 71 71 72 Respiratory Rate 16 16 Blood Pressure 108/51 L Pulse Oximetry 97 97 Oxygen Delivery CPAP Fraction of Inspired Oxygen 21 11/19/24 02:00 11/19/24 04:00 11/19/24 04:00 Temperature 36.8 C Pulse Rate 67 85 73 Respiratory Rate 12 Blood Pressure 106/54 L Pulse Oximetry 98 Oxygen Delivery Fraction of Inspired Oxygen 11/19/24 04:00 11/19/24 06:00 11/19/24 08:00 Temperature 36.6 C Pulse Rate 73 73 72 Respiratory Rate 12 20 Blood Pressure 140/72 Pulse Oximetry 98 97 Oxygen Delivery CPAP Fraction of Inspired Oxygen 21 11/19/24 08:00 11/19/24 09:10 11/19/24 10:00 Temperature Pulse Rate 84 77 71 Respiratory Rate Blood Pressure Pulse Oximetry Oxygen Delivery Fraction of Inspired Oxygen 11/19/24 12:00 11/19/24 12:00 11/19/24 14:00 Temperature 36.4 C Pulse Rate 68 70 72 Respiratory Rate 18 Blood Pressure 135/84 Pulse Oximetry 98 Oxygen Delivery Fraction of Inspired Oxygen 11/19/24 16:00 11/19/24 16:00 Temperature 36.6 C Pulse Rate 71 69 Respiratory Rate 18 Blood Pressure 112/67 Pulse Oximetry 97 Oxygen Delivery Fraction of Inspired Oxygen Intake/Output Intake/Output: Intake & Output 11/16/24 11/17/24 11/18/24 11/19/24 23:59 23:59 23:59 23:59 Intake Total 1664.8 1405.2 695.6 Output Total 300 Balance 1364.8 1405.2 695.6 Meds/Results Medications: Active Medications Generic Name Dose Route Start Last Admin Trade Name Freq PRN Reason Stop Dose Admin Acetaminophen 650 mg 11/16/24 17:40 11/18/24 22:14 Acetaminophen 325 Mg Tablet PO 650 mg Q4H PRN Administration Mild Pain (1-3) or Fever Hydrocodone Bitart/Acetaminophen 1 tab 11/16/24 17:40 Hydrocodone/Acetaminophen (*Crx) 5-325 Mg Tablet PO Q4H PRN Moderate Pain (4-6) Heparin Sodium (Porcine) 7,000 units 11/16/24 17:34 Heparin Sodium 5,000 Units/Ml Vial IV PUSH PRN PRN aPTT less than 55 seconds Heparin Sodium (Porcine) 3,500 units 11/16/24 17:34 11/19/24 06:03 Heparin Sodium 5,000 Units/Ml Vial IV PUSH 3,500 units PRN PRN Administration aPTT 55 - 70 seconds Heparin Sodium/Dextrose 25,000 units in 250 mls @ 14 mls/hr 11/16/24 17:35 11/19/24 12:46 Heparin Sodium/D5w 100 Units/Ml IV CONT 1,400 units/hr .[id number] TIAGO 14 mls/hr Protocol Administration 1,400 UNITS/HR Lisinopril 10 mg 11/17/24 09:00 11/19/24 09:10 Lisinopril 10 Mg Tablet PO 10 mg DAILY TIAGO Administration Metoprolol Succinate 25 mg 11/17/24 09:00 11/19/24 09:10 Metoprolol Succinate Ext Rel 25 Mg Tabcr PO 25 mg DAILY TIAGO Administration Nitroglycerin 0.4 mg 11/16/24 17:42 Nitroglycerin Sl 0.4 Mg Tablet SUBLINGUAL Q5MIN PRN Chest Pain Pantoprazole Sodium 40 mg 11/17/24 09:00 11/19/24 09:10 Pantoprazole 40 Mg Tablet PO 40 mg QAM TIAGO Administration Fluticasone/Salmeterol 2 puff 11/16/24 21:05 11/19/24 08:50 Fluticasone/Salmeterol 230-21 Mcg Inhaler 1 Puff INHALATION 2 puff Q12HRT TIAGO Administration Senna/Docusate Sodium 1 tab 11/16/24 21:00 11/18/24 22:11 Senna/Docusate Sodium Tablet PO 1 tab HS TIAGO Administration Tamsulosin HCl 0.4 mg 11/16/24 21:00 11/18/24 22:12 Tamsulosin Hcl 0.4 Mg Capsule PO 0.4 mg HS TIAGO Administration Umeclidinium [place] Level 1 puff 11/17/24 09:00 11/19/24 08:50 Umeclidinium [place] Level 62.5 Mcg Ellipta INHALATION 1 puff DAILY TIAGO Administration Radiology Results: ITS Impressions Chest X-Ray 11/16/24 15:30 Impression: No acute cardiopulmonary abnormality. Venous Doppler Study 11/16/24 16:39 Impression: Left popliteal DVT Chest/Abdomen/Pelvis CTA 11/16/24 16:42 IMPRESSION: 1. Small pulmonary embolism in the lingular artery.] , a provider working with the patient, was notified about the findings on 11/16/2024 at 4:40 PM Eastern standard time by Dr. Villafuerte, read back occurred. 2. There is a 1.1 cm pulmonary nodule in the right lower lobe. A PET/CT and/or biopsy is recommended. 3. Mild thickening of the loredo of the transverse, descending and proximal sigmoid colon. Differential includes incomplete bowel wall distention or colitis. 4. Moderate concentric thickening of the loredo of the mildly distended bladder. Differential includes incomplete bladder wall distention versus cystitis. Labs Labs: Laboratory Results - last 24 hr 11/19/24 11/19/24 04:03 12:03 WBC 5.7 RBC 4.81 Hgb 14.7 Hct 43.7 MCV 90.9 MCH 30.6 MCHC 33.6 RDW 12.4 Plt Count 203 MPV 9.5 Immature Gran % (Auto) 0.4 Neut % (Auto) 51.7 Lymph % (Auto) 36.2 Jewell % (Auto) 8.8 H Eos % (Auto) 2.5 Baso % (Auto) 0.4 Lymph # (Auto) 2.05 Jewell # (Auto) 0.5 Eos # (Auto) 0.1 Baso # (Auto) 0.0 Abs Immat Gran (auto) 0.02 Absolute Neuts (auto) 2.9 Absolute Nucleated RBC 0.000 Nucleated RBC % 0.0 APTT 63.0 H 109.5 H Sodium 134 L Potassium 3.4 Chloride 104 Carbon Dioxide 23 Anion Gap 7 BUN 19 Creatinine 1.18 Estim Creat Clear Calc 78 Estimated GFR > 60 Glucose 168 H Calcium 8.6 Quality VTE Prophylaxis VTE prophylaxis: mechanical ordered and pharmacologic ordered
[2024-11-19 18:25] LABS: Partial Thromboplastin Time 77.0 Seconds (22.3-36.8)
--- NOTE | 2024-11-19 18:40 | WPDONCCN ---
Assessment and Plan Assessment and plan (1) DVT (deep venous thrombosis): Code(s): I82.409 - Acute embolism and thrombosis of unspecified deep veins of unspecified lower extremity Status: Acute Assessment and Plan: Recurrent DVT. Patient had initial DVT and pulmonary embolism diagnosed in 2022 there was also unprovoked in nature and then subsequently had IVC filter placed and then removed. He has been taking Eliquis since then. This time he came back to the hospital with increasing shortness of breath and the right calf pain. Patient was recently diagnosed with cellulitis and was not quite active since then. He denies any injury, trauma and surgery. CTA chest showed small pulmonary embolism. Doppler study showed left popliteal vein DVT. This would be considered Eliquis failure. I would recommend Lovenox 1 milligram/kilogram subQ twice a day for 4 weeks and then eventually will switch him to Xarelto in my office. Patient will continue anticoagulation therapy for long-term duration. (2) Pulmonary nodule: Code(s): R91.1 - Solitary pulmonary nodule Status: Acute Assessment and Plan: Patient has a remote short history of smoking. Patient was found to have right lower lobe nodule in January of 2022. He had PET scan done on May 09, 2023 and that was negative. I agree with Pulmonary Assessment for repeating CT chest in 3 months given the stability of the lung nodule. CT scan also showed thickening of the transverse descending and sigmoid colon could be secondary to colitis. His last colonoscopy was more than 5 years ago. He has been dealing with some intermittent constipation. I would like surveillance colonoscopy sooner than later. I have discussed this with Dr. Gonzalez as well HPI Data of Consult Date/Time: 11/19/24 18:40 Requesting Physician: Caren Gonzalez MD Primary Care Provider: MANAGER BANK PHYSICIAN Consult Narrative Narrative: Chauncey Gandara is a 59 year old male with history of right lower extremity DVT and PE diagnosed in 2022 unprovoked at that time came into the hospital while already on Eliquis 5 mg twice a day with increasing shortness of breath and the right calf pain. Patient had IVC filter placed at that time and then subsequently removed. CTA chest abdomen and pelvis showed small pulmonary embolism and 1.1 cm pulmonary nodule in the right lower lobe. Doppler studies showed left popliteal vein DVT. Patient denies any significant history of smoking. He denies any provoking factors including trauma injury and surgery prior to the diagnosis of PE and DVT at this time. According to the daughter he was diagnosed with cellulitis recently as well. Patient has not been started on heparin. Denies any chest pain and shortness of breath. Denies any leg pain and swelling. Review of Systems Review of Systems: Twelve point review of system was reviewed [facility] Family History Family History Mother Patient's mother is in good health Hypertension Family history of elevated blood lipids Family history of irritable bowel syndrome Sibling Patient's sister is in good health Father Malignant neoplasm of prostate, Onset Age: 60 Family history of elevated blood lipids Patient's father is in good health Grandparent Diabetes mellitus Social History Social History Smoking status: Never smoker Alcohol intake: current Substance use: never Lack of Transportation: No Lack of Food: Never True Current Housing: I Have Housing Concerned About Future Housing: No Difficulty Paying Gas/Electric Bills: No Difficulty Paying for Meds: No Currently Unemployed: No Education: Associate Degree Difficulty w/ Childcare or Family Care: No Spiritual care concerns: No Meds Home Medications and Allergies Home Medications ?Medication ?Instructions ?Recorded ?Confirmed ?Type apixaban 5 mg tablet (Eliquis) 5 mg PO BID 11/16/24 11/16/24 History fluticasone 500 mcg-salmeterol 50 1 inh inhalation Q12H 11/16/24 11/16/24 History mcg/dose blistr powdr for inhalation (Advair Diskus) fluticasone propionate 50 2 spray intranasal DAILY PRN 11/16/24 11/16/24 History mcg/actuation nasal allergy symptoms spray,suspension (24 Hour Allergy Relief) lisinopril 10 mg tablet 10 mg PO DAILY 11/16/24 11/16/24 History metoprolol succinate 25 mg 25 mg PO DAILY 11/16/24 11/16/24 History tablet,extended release 24 hr omeprazole 20 mg capsule,delayed 20 mg PO DAILY 11/16/24 11/16/24 History release tamsulosin 0.4 mg capsule 0.4 mg PO HS 11/16/24 11/16/24 History tiotropium bromide 18 mcg capsule 1 cap inhalation DAILY 11/16/24 11/16/24 History with inhalation device (Spiriva with HandiHaler) Allergies Allergy/AdvReac Type Severity Reaction Status Date / Time meperidine (From Demerol) Allergy Mild Nausea Verified 11/16/24 20:16 codeine Allergy Unknown Nausea Verified 10/28/24 09:42 atorvastatin Allergy Other Verified 10/28/24 09:42 cephalexin Allergy Hives Verified 10/28/24 09:42 doxycycline Allergy Rash Verified 10/28/24 09:42 Vital Signs Vital Signs - 24 hr 11/18/24 20:00 11/18/24 20:00 11/18/24 20:17 Temperature 36.6 C Pulse Rate 87 73 80 Respiratory Rate 14 16 Blood Pressure 128/67 Pulse Oximetry 98 Oxygen Delivery Fraction of Inspired Oxygen 11/18/24 20:20 11/18/24 21:55 11/18/24 22:00 Temperature Pulse Rate 80 87 86 Respiratory Rate 16 14 Blood Pressure Pulse Oximetry 97 98 Oxygen Delivery Room Air Room Air Fraction of Inspired Oxygen 21 11/18/24 23:40 11/19/24 00:00 11/19/24 00:00 Temperature 36.7 C Pulse Rate 71 71 72 Respiratory Rate 16 16 Blood Pressure 108/51 L Pulse Oximetry 97 97 Oxygen Delivery CPAP Fraction of Inspired Oxygen 21 11/19/24 02:00 11/19/24 04:00 11/19/24 04:00 Temperature 36.8 C Pulse Rate 67 85 73 Respiratory Rate 12 Blood Pressure 106/54 L Pulse Oximetry 98 Oxygen Delivery Fraction of Inspired Oxygen 11/19/24 04:00 11/19/24 06:00 11/19/24 08:00 Temperature 36.6 C Pulse Rate 73 73 72 Respiratory Rate 12 20 Blood Pressure 140/72 Pulse Oximetry 98 97 Oxygen Delivery CPAP Fraction of Inspired Oxygen 21 11/19/24 08:00 11/19/24 09:10 11/19/24 10:00 Temperature Pulse Rate 84 77 71 Respiratory Rate Blood Pressure Pulse Oximetry Oxygen Delivery Fraction of Inspired Oxygen 11/19/24 12:00 11/19/24 12:00 11/19/24 14:00 Temperature 36.4 C Pulse Rate 68 70 72 Respiratory Rate 18 Blood Pressure 135/84 Pulse Oximetry 98 Oxygen Delivery Fraction of Inspired Oxygen 11/19/24 16:00 11/19/24 16:00 Temperature 36.6 C Pulse Rate 71 69 Respiratory Rate 18 Blood Pressure 112/67 Pulse Oximetry 97 Oxygen Delivery Fraction of Inspired Oxygen Exam Narrative: Lungs are clear to auscultation bilaterally Cardiovascular regular rate rhythm no murmurs Abdomen soft nontender nondistended Extremities no edema Results Labs 11/19/24 04:03 11/19/24 04:03 Labs: Short CBC 11/19/24 Range/Units 04:03 WBC 5.7 (4.5-10.0) K/mm3 Hgb 14.7 (14.0-18.0) g/dL Hct 43.7 (42.0-52.0) % Plt Count 203 (150-375) k/mm3 [facility] 11/19/24 04:03 Sodium 134 L Potassium 3.4 Chloride 104 Carbon Dioxide 23 BUN 19 Creatinine 1.18 Glucose 168 H Calcium 8.6
[2024-11-19] MEDS: SENNA/DOCUSATE SODIUM TABLET 1 TAB PO (20:18)
[2024-11-19] MEDS: TAMSULOSIN HCL 0.4 MG CAPSULE PO (20:18)
[2024-11-20] VITALS (8 sets, daily range): BP systolic 125–129; BP diastolic 61–85; PULSE 61–88; RESP 12–20; TEMP 36.5–36.8; O2SAT 97
[2024-11-20 00:55] LABS: Partial Thromboplastin Time 63.5 Seconds (22.3-36.8)
[2024-11-20 07:13] LABS: Hematocrit 43.7 % (42.0-52.0); Hemoglobin 15.2 g/dL (14.0-18.0); Immature Granulocyte Percent A 0.8 % (0-0.5); Lymphocytes Absolute Auto 1.72 K/mm3 (0.9-3.2); Mean Corpuscular HGB Conc 34.8 g/dl (32-36); Mean Corpuscular Hemoglobin 30.7 pg (26-34); Mean Corpuscular Volume 88.3 fl (80-100); Nucleated Red Blood Cells Absolute Auto 0.000 K/mm3 (0.0-0.012); Nucleated Red Blood Cells Perc 0.0 % (0.0-0.2); Platelet Count Result 185 k/mm3 (150-375); Red Blood Count 4.95 M/mm3 (4.6-6.20); White Blood Count 6.4 K/mm3 (4.5-10.0)
[2024-11-20 07:29] LABS: Partial Thromboplastin Time 135.3 Seconds (22.3-36.8)
[2024-11-20 07:40] LABS: Anion Gap 5 mmol/L (4-12); Blood Urea Nitrogen 15 mg/dL (9-20); Calcium 8.9 mg/dL (8.4-10.2); Carbon Dioxide 25 mmol/L (22-30); Chloride 106 mmol/L (98-107); Estimated CRCL calculation 86 ml/min; Estimated Glomerular Filt Rate > 60; Glucose 113 mg/dL (65-110); Potassium 3.7 mmol/L (3.4-5.0); Sodium 136 mmol/L (137-145)
[2024-11-20] MEDS: FLUTICASONE/SALMETEROL 230-21 MCG INHALER 1 PUFF 2 PUFF INHALATION (08:20)
[2024-11-20] MEDS: UMECLIDINIUM BROMIDE 62.5 MCG ELLIPTA 1 PUFF INHALATION (08:21)
[2024-11-20] MEDS: PANTOPRAZOLE 40 MG TABLET PO (08:24)
[2024-11-20] MEDS: METOPROLOL SUCCINATE EXT REL 25 MG TABCR PO (08:24)
[2024-11-20] MEDS: ENOXAPARIN 120 MG/0.8 ML SYRINGE 110 MG SUB-Q (10:58)
--- NOTE | 2024-11-20 11:17 | P.DS_ITS ---
DS: Admitting Diagnosis Discharge Date 11/20 Admitting Diagnosis Shortness of breath, chest pain, and right calf pain DS: Discharge Diagnosis Discharge Diagnosis (1) Pulmonary embolism: Code(s): I26.99 - Other pulmonary embolism without acute cor pulmonale Status: Acute Assessment and Plan: Small pulmonary embolism in the lingular artery. Patient was already on Eliquis 5 mg b.i.d. at home. 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 Had extensive workup in his prior history of PE and DVT without revealing. Was determined to be on Eliquis indefinitely. Hematology consulted, appreciate rec Continue heparin drip per protocol Awaiting Hematology recommendation, likely switch heparin to Xarelto prior to discharge and hematology follow-up as outpatient 2D Echo 11/17/2024 1. Complete two-dimensional, color flow and Doppler transthoracic echocardiogram is performed. 2. Left ventricular chamber dimension is normal. 3. Left ventricular systolic function is normal, estimated at 60-65. 4. There is mildly increased left ventricular wall thickness. 5. The left ventricular diastolic function is grade I diastolic dysfunction. 6. Right ventricular chamber dimension is normal. 7. Right ventricular systolic function is normal. 8. Left atrial chamber dimension is mildly enlarged. 9. There is mild aortic valve sclerosis. (2) DVT (deep venous thrombosis): Code(s): I82.409 - Acute embolism and thrombosis of unspecified deep veins of unspecified lower extremity Status: Acute Assessment and Plan: Left popliteal DVT management like above (3) Chest pain: Code(s): R07.9 - Chest pain, unspecified Status: Acute Assessment and Plan: Chest pain resolved Troponin negative x3 2D echo is normal-summary attached above (4) Pulmonary nodule: Code(s): R91.1 - Solitary pulmonary nodule Status: Acute Assessment and Plan: CT shows There is a 1.1 cm pulmonary nodule in the right lower lobe. A PET/CT and/or biopsy is recommended. 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 Records requested from outside hospital (5) Colon wall thickening: Code(s): K63.9 - Disease of intestine, unspecified Status: Acute Assessment and Plan: CT showed Mild thickening of the loredo of the transverse, descending and proximal sigmoid colon. Differential includes incomplete bowel wall distention or colitis. Patient has no abdominal complaints Plan today patient was seen by Dr. Eden and communicated recommended to continue Lovenox 1mg/kg BID for four weeks, thereafter start Xarelto, and patient will be in his office in 4 weeks, patient also has a lung nodule and has been stable, seen by Dr. Ling recommended to repeat the chest scan to check for 2 yrs nodule stability. patient is clinically stable, his if present in the room and gave updates. DS: Summary Hospital Course Hospital Course: patient was seen by Dr. Eden and communicated recommended to continue Lovenox 1mg/kg BID for four weeks, thereafter start Xarelto, and patient will be seen in his office in 4 weeks, patient also has a lung nodule and has been stable, seen by Dr. Ling recommended to repeat the chest scan in 3 months to check for 2 yrs nodule stability. patient is clinically stable, his if present in the room and gave updates. Will discharge the patient today. Time Spent with Patient Time attestation: Total time spent providing and/or coordinating discharge services: Exam Narrative: APPEARANCE: Obese, no acute distress. EYES: EOMI HEENT: Normocephalic, atraumatic, OMM RESPIRATORY: No respiratory distress Clear to auscultation bilaterally with no rhonchi wheezing or rales. CARDIOVASCULAR: RRR, S1 and S2 without murmurs rubs or gallops. ABDOMINAL: Soft, nontender, nondistended, no rebound or guarding MSK: No issues NEURO: Awake and alert. Following commands, speech normal, no focal deficits SKIN:: Warm, dry. No rashes lesions or abrasions PSYCHIATRIC: Appropriate mood DS: Data Data Completed and Pending Labs on day of discharge: Labs from last 24 hours 11/20/24 11/20/24 11/19/24 07:04 00:23 17:56 WBC 6.4 RBC 4.95 Hgb 15.2 Hct 43.7 MCV 88.3 MCH 30.7 MCHC 34.8 RDW 12.4 Plt Count 185 MPV 8.8 Immature Gran % (Auto) 0.8 H Neut % (Auto) 60.5 Lymph % (Auto) 27.0 [place] % (Auto) 9.4 H Eos % (Auto) 2.0 Baso % (Auto) 0.3 Lymph # (Auto) 1.72 [place] # (Auto) 0.6 Eos # (Auto) 0.1 Baso # (Auto) 0.0 Abs Immat Gran (auto) 0.05 H Absolute Neuts (auto) 3.9 Absolute Nucleated RBC 0.000 Nucleated RBC % 0.0 APTT 135.3 H 63.5 H 77.0 H Sodium 136 L Potassium 3.7 Chloride 106 Carbon Dioxide 25 Anion Gap 5 BUN 15 Creatinine 1.05 Estim Creat Clear Calc 86 Estimated GFR > 60 Glucose 113 H Calcium 8.9 11/19/24 12:03 WBC RBC Hgb Hct MCV MCH MCHC RDW Plt Count MPV Immature Gran % (Auto) Neut % (Auto) Lymph % (Auto) Coffee % (Auto) Eos % (Auto) Baso % (Auto) Lymph # (Auto) [place] # (Auto) Eos # (Auto) Baso # (Auto) Abs Immat Gran (auto) Absolute Neuts (auto) Absolute Nucleated RBC Nucleated RBC % APTT 109.5 H Sodium Potassium Chloride Carbon Dioxide Anion Gap BUN Creatinine Estim Creat Clear Calc Estimated GFR Glucose Calcium Discharge Plan Discharge Attending physician on discharge: Caren Gonzalez Consulting providers: Guy Whatley; Octavio Deleon; Dontrell Eden; Lissy Nicholson; Rell Beaver; Joon Berry; Anu Solano; Javier Villafuerte; Dontrell Bright Discharging Clinician: Caren Gonzalez Patient Disposition: Home Activity: as tolerated Diet: heart healthy Discharge Instructions: patient to follow up with Dr. 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 Patient Instructions: Antibiotic Form, Enoxaparin (By injection), Heparin (By injection), Rivaroxaban (By mouth), Pulmonary Embolism (DC), Deep Vein Thrombosis (DC), Colonoscopy (DC) Patient Language: Arabic Stand Alone Forms: General Discharge Information Follow-up/Referrals: Dontrell Eden MD [Physician, Hematology] Guy Whatley MD [Physician, Family Practice] PHYSICIAN,[employer] MAN[employer]FACTURING TECH [Primary Care Provider, Internal Medicine] Discharge Medications: New enoxaparin [Lovenox] 120 mg/0.8 mL Syringe 110 mg subcut Q12HR Qty: 56 0RF Continued tamsulosin 0.4 mg capsule 0.4 mg PO HS omeprazole 20 mg capsule,delayed release(DR/EC) 20 mg PO DAILY fluticasone propion-salmeterol [Advair Diskus] 500-50 mcg/dose blister with device 1 inh inhalation Q12H tiotropium bromide [Spiriva with HandiHaler] 18 mcg capsule, w/inhalation device 1 cap inhalation DAILY Rx Instructions: puncture 1 cap using device; one dose = 2 inhalations metoprolol succinate 25 mg tablet extended release 24 hr 25 mg PO DAILY lisinopril 10 mg tablet 10 mg PO DAILY fluticasone propionate [24 Hour Allergy Relief] 50 mcg/actuation spray,suspension 2 spray intranasal DAILY PRN (Reason: allergy symptoms) Rx Instructions: administer into each nostril Held Eliquis 5 mg tablet 5 mg PO BID Hold Instructions: until seen by Dr. Eden Date of admission: 11/16/24 17:38 Primary Care Provider: PHYSICIAN,[employer]CTURING TECH Admitting Provider: Caren Gonzalez Attending physician on admission: Caren Gonzalez Condition: Stable
--- NOTE | 2024-11-20 14:49 | PC.NURSE ---
Spoke with [facility] [employer] pharmacy technician, he stated clearance to provide patient with 2 doses of lovenox from pyxis for home use of tonight's dose and tomorrow morning.
--- NOTE | 2024-11-20 15:04 | PC.NURSE ---
PT discharged home on lovenox injection. Medication unavailable at [facility] pharmacy until tomorrow. In-hospital pharmacy provided pt with two lovenox 120mg/0.8ml syringes. Educated patient on dose and need to only inject 0.7ml. PT performed morning lovenox administration with guided instruction, also provided patient with printed education and pt discharged.
== END 2024-11-20 15:05 | disposition home or self-care (01) ==
LOC: ANHED 15:33 → ANHIMU 18:19
PROVIDERS: Internal Medicine; Nurse Practitioner Adult Health; Nurse Practitioner Gerontology; Student in an Organized Health Care Education/Training Program; Admitting Provider Family Medicine; Emergency Provider Emergency Medicine; Visit Provider Family Medicine
DX: I26.99 Other pulmonary embolism without acute cor pulmonale (principal); I82.432 Acute embolism and thrombosis of left popliteal vein; R91.1 Solitary pulmonary nodule; K63.9 Disease of intestine, unspecified; R07.9 Chest pain, unspecified; Z86.711 Personal history of pulmonary embolism; Z86.718 Personal history of other venous thrombosis and embolism; Z79.01 Long term (current) use of anticoagulants; J45.909 Unspecified asthma, uncomplicated; G47.33 Obstructive sleep apnea (adult) (pediatric); Z99.89 Dependence on other enabling machines and devices; Z83.3 Family history of diabetes mellitus
CPT/HCPCS: 36415; 71046; 71275; 74177; 80048; 80053; 80061; 81003; 83036; 83690; 83880; 84484; 85025; 85610; 85730; 93005; 93306; 93970; 94640; 96372; 99285; A9270; G0378; J1644; J1650; Q9967

== ENCOUNTER 2025-01-21 10:28 | Emergency (ER) | payer SELFPAY ==
[2025-01-21 10:40] VITALS: BP 143/90; PULSE 85; RESP 20; TEMP 36.5; O2SAT 100
[2025-01-21 11:23] VITALS: PULSE 83; RESP 16; O2SAT 100
--- NOTE | 2025-01-21 11:26 | ED.EXTPRO ---
HPI - Extremity Problem General Chief complaint: Extremity Problem,Nontraumatic Stated complaint: leg infection Time Seen by Provider: 01/21/25 11:21 History of Present Illness HPI Narrative: Pt presents with redness and pain in his right leg since yesterday. Pt vomited once yesterday and feels a bit nauseated. Pt denies fever. Pt has history of cellulitis in same leg a month ago and feels similar. Pt got better on oral antibiotics but now it has returned. Related Data Home Medications ?Medication ?Instructions ?Recorded ?Confirmed ?Last Taken ?Type fluticasone 500 mcg-salmeterol 50 1 inh inhalation Q12H 11/16/24 11/29/24 11/15/24 History mcg/dose blistr powdr for inhalation (Advair Diskus) fluticasone propionate 50 2 spray intranasal DAILY PRN 11/16/24 11/29/24 11/16/24 History mcg/actuation nasal allergy symptoms spray,suspension (24 Hour Allergy Relief) lisinopril 10 mg tablet 10 mg PO DAILY 11/16/24 11/29/24 11/16/24 History metoprolol succinate 25 mg 25 mg PO DAILY 11/16/24 11/29/24 11/15/24 History tablet,extended release 24 hr omeprazole 20 mg capsule,delayed 20 mg PO DAILY 11/16/24 11/29/24 11/15/24 History release tamsulosin 0.4 mg capsule 0.4 mg PO HS 11/16/24 11/29/24 11/15/24 History tiotropium bromide 18 mcg capsule 1 cap inhalation DAILY 11/16/24 11/29/24 11/16/24 History with inhalation device (Spiriva with HandiHaler) albuterol sulfate 90 mcg/actuation 1 puff inhalation Q6H PRN 11/26/24 11/29/24 Unknown History aerosol inhaler (Ventolin HFA) Allergies Allergy/AdvReac Type Severity Reaction Status Date / Time meperidine (From Demerol) Allergy Mild Nausea Verified 11/26/24 11:28 codeine Allergy Unknown Nausea Verified 11/26/24 11:28 atorvastatin Allergy Other Verified 11/26/24 11:28 cephalexin Allergy Hives Verified 11/26/24 11:28 doxycycline Allergy Rash Verified 11/26/24 11:28 Review of Systems Review of Systems: All systems reviewed & are unremarkable except as noted in HPI and below PMFSH Past Medical History Medical History Gallbladder disorder Phlebitis and thrombophlebitis of superficial vessels of unspecified lower extremity Mild intermittent asthma with (acute) exacerbation Acute maxillary sinusitis, unspecified Surgical History Surgical History History of neck surgery (~2004) History of cholecystectomy Family History Family History Mother Hypertension Family history of elevated blood lipids Family history of irritable bowel syndrome Diabetes mellitus Thyroid disorder Sibling Patient's sister is in good health Father Malignant neoplasm of prostate, Onset Age: 60 Family history of elevated blood lipids Diabetes mellitus Heart disease Hypertension Grandparent Diabetes mellitus Sibling Diabetes mellitus Social History Social History Smoking status: Never smoker Alcohol intake: never Substance use: never Substance use type: does not use Lack of Transportation: No Lack of Food: Never True Current Housing: I Have Housing Concerned About Future Housing: No Difficulty Paying Gas/Electric Bills: No Difficulty Paying for Meds: No Currently Unemployed: No Education: Don't Know Difficulty w/ Childcare or Family Care: No Spiritual care concerns: No Exam Const: General: healthy appearing and no acute distress Nutritional Appearance: well nourished Orientation/consciousness: patient oriented x3 Limitations: no limitations Resp: Effort & Inspection: normal respiratory effort Auscultation: clear to auscultation bilaterally Cardio: Rate: regular rate Rhythm: regular rhythm GI: GI Palp: Yes Soft to palpation and No Tenderness to palpation present (GI) Auscultation: normal bowel sounds Back/Spine/Pelvis: Back: no CVA tenderness Skin: Rashes: no rashes (areas of mild erythema ot right leg no lymphangitis) Wounds: no wounds Neuro: General: patient oriented x3, moves all extremities, no meningeal signs and no focal motor deficits Cranial nerves: Yes Nystagmus not present Speech: normal speech Extrem: General: no clubbing, cyanosis or edema and no pedal edema Psych: Mental Status: mental status grossly normal Affect: normal affect Attitude: cooperative Course Vital Signs Vital signs: Vital Signs Temperature 97.7 F 01/21/25 10:40 Pulse Rate 85 01/21/25 10:40 Respiratory Rate 20 01/21/25 10:40 Blood Pressure 143/90 H 01/21/25 10:40 Pulse Oximetry 100 01/21/25 10:40 Oxygen Delivery Room Air 01/21/25 10:40 Temperature 97.8 F 01/21/25 16:02 Pulse Rate 70 01/21/25 16:02 Respiratory Rate 18 01/21/25 16:02 Blood Pressure 127/85 01/21/25 16:02 Pulse Oximetry 100 01/21/25 16:02 Oxygen Delivery Room Air 01/21/25 11:23 [facility] Narrative Medical decision making narrative: will check labs and given history will give IV antibiotics and pain meds. Pt labs look ok. Pt having some upper abdominal intermittent cramping pain now. will give oral bentyl. Pt says the bentyl helped. will send home on clinda and bentyl. Differential Diagnosis Differential Diagnosis: cellulits vs allergic reaction vs drmatitis Lab Data [facility] Lab Attestation statement: I personally reviewed the patient's lab results. 01/21/25 11:39 01/21/25 11:39 Labs: Lab Results 01/21/25 Range/Units 11:39 WBC 9.2 (4.5-10.0) K/mm3 RBC 5.65 (4.6-6.20) M/mm3 Hgb 17.6 (14.0-18.0) g/dL Hct 49.4 (42.0-52.0) % MCV 87.4 (80-100) fl MCH 31.2 (26-34) pg MCHC 35.6 (32-36) g/dl RDW 12.8 (11.5-14.5) % Plt Count 203 (150-375) k/mm3 MPV 9.0 (7.4-10.4) fl Immature Gran % (Auto) 0.3 (0-0.5) % Neut % (Auto) 80.9 H (45.5-73.1) % Lymph % (Auto) 10.6 L (18.3-44.2) % [place] % (Auto) 7.9 (2.6-8.5) % Eos % (Auto) 0.0 (0-4.4) % Baso % (Auto) 0.3 (0.2-1.2) % Lymph # (Auto) 0.98 (0.9-3.2) K/mm3 [place] # (Auto) 0.7 H (0.1-0.6) K/mm3 Eos # (Auto) 0.0 (0-0.3) K/mm3 Baso # (Auto) 0.0 (0.0-0.1) K/mm3 Abs Immat Gran (auto) 0.03 (0.00-0.031) K/mm3 Absolute Neuts (auto) 7.5 H (1.3-6.7) K/mm3 Absolute Nucleated RBC 0.000 (0.0-0.012) K/mm3 Nucleated RBC % 0.0 (0.0-0.2) % PT 17.9 H (11.1-14.7) Seconds INR 1.5 APTT 35.8 (22.3-36.8) Seconds Sodium 134 L (137-145) mmol/L Potassium 3.3 L (3.4-5.0) mmol/L Chloride 103 (98-107) mmol/L Carbon Dioxide 25 (22-30) mmol/L Anion Gap 6 (4-12) mmol/L BUN 20 (9-20) mg/dL Creatinine 1.27 (0.7-1.3) mg/dL Estim Creat Clear Calc 72 ml/min Estimated GFR 58 L (59 - ) Glucose 126 H (65-110) mg/dL Lactic Acid 1.7 (0.7-2.0) mmol/L Calcium 9.1 (8.4-10.2) mg/dL Total Bilirubin 2.8 H (0.2-1.3) mg/dL AST 34 (17-59) U/L ALT 52 H (6-50) U/L Alkaline Phosphatase 63 (38-126) U/L C-Reactive Protein 15.3 H (<1.0) mg/dL Total Protein 8.4 H (6.3-8.2) g/dL Albumin 4.4 (3.5-5.1) g/dL Discharge Plan Discharge Clinical Impression: Cellulitis Patient Disposition: Home Condition: Improved Instructions: Antibiotic Form, Cellulitis (ED) Patient Language: Surinamese Prescriptions: New clindamycin HCl [Cleocin HCl] 300 mg capsule 300 mg PO Q6H Qty: 40 0RF dicyclomine 20 mg tablet 20 mg PO QID Qty: 20 0RF No Action albuterol sulfate [Ventolin HFA] 90 mcg/actuation HFA aerosol inhaler 1 puff inhalation Q6H PRN tamsulosin 0.4 mg capsule 0.4 mg PO HS omeprazole 20 mg capsule,delayed release(DR/EC) 20 mg PO DAILY fluticasone propion-salmeterol [Advair Diskus] 500-50 mcg/dose blister with device 1 inh inhalation Q12H tiotropium bromide [Spiriva with HandiHaler] 18 mcg capsule, w/inhalation device 1 cap inhalation DAILY Rx Instructions: puncture 1 cap using device; one dose = 2 inhalations metoprolol succinate 25 mg tablet extended release 24 hr 25 mg PO DAILY lisinopril 10 mg tablet 10 mg PO DAILY fluticasone propionate [24 Hour Allergy Relief] 50 mcg/actuation spray,suspension 2 spray intranasal DAILY PRN (Reason: allergy symptoms) Rx Instructions: administer into each nostril enoxaparin [Lovenox] 120 mg/0.8 mL Syringe 110 mg subcut Q12HR Qty: 56 0RF Follow-up/Referrals: Octavio Bueno MD [Primary Care Provider, Internal Medicine]
[2025-01-21 11:47] LABS: Hematocrit 49.4 % (42.0-52.0); Hemoglobin 17.6 g/dL (14.0-18.0); Immature Granulocyte Percent A 0.3 % (0-0.5); Lymphocytes Absolute Auto 0.98 K/mm3 (0.9-3.2); Mean Corpuscular HGB Conc 35.6 g/dl (32-36); Mean Corpuscular Hemoglobin 31.2 pg (26-34); Mean Corpuscular Volume 87.4 fl (80-100); Nucleated Red Blood Cells Absolute Auto 0.000 K/mm3 (0.0-0.012); Nucleated Red Blood Cells Perc 0.0 % (0.0-0.2); Platelet Count Result 203 k/mm3 (150-375); Red Blood Count 5.65 M/mm3 (4.6-6.20); White Blood Count 9.2 K/mm3 (4.5-10.0)
--- NOTE | 2025-01-21 11:50 | PC.NURSE ---
IV clindamycin not in pyxis, waiting for medication to come from pharmacy
[2025-01-21] MEDS: ONDANSETRON INJ 4 MG/2 ML VIAL IV PUSH (11:57)
[2025-01-21] MEDS: MORPHINE SULFATE (*CRX) 4 MG/ML INJ IV PUSH (11:57)
[2025-01-21 12:00] LABS: INR 1.5; Prothrombin Time 17.9 Seconds (11.1-14.7)
[2025-01-21 12:01] LABS: Partial Thromboplastin Time 35.8 Seconds (22.3-36.8)
[2025-01-21 12:04] LABS: Alanine Aminotransferase 52 U/L (6-50); Albumin Level 4.4 g/dL (3.5-5.1); Alkaline Phosphatase 63 U/L (38-126); Anion Gap 6 mmol/L (4-12); Aspartate Amino Transferase 34 U/L (17-59); Bilirubin,Total 2.8 mg/dL (0.2-1.3); Blood Urea Nitrogen 20 mg/dL (9-20); Calcium 9.1 mg/dL (8.4-10.2); Carbon Dioxide 25 mmol/L (22-30); Chloride 103 mmol/L (98-107); Estimated CRCL calculation 72 ml/min; Estimated Glomerular Filt Rate 58; Glucose 126 mg/dL (65-110); Potassium 3.3 mmol/L (3.4-5.0); Sodium 134 mmol/L (137-145); Total Protein 8.4 g/dL (6.3-8.2)
[2025-01-21] MEDS: CLINDAMYCIN 900 MG/D5W 50 ML 900 MG/50 ML PIGGYBACK 50 MG IVPB (12:22)
[2025-01-21 12:27] LABS: CRP 15.3 mg/dL (<1.0)
[2025-01-21] MEDS: fentaNYL CITRATE INJ (*CRX) 100 MCG/2 ML VIAL 50 MCG IV PUSH (12:39)
--- NOTE | 2025-01-21 13:42 | PC.NURSE ---
patient continues to complain about abdominal pain that is focused in the right upper quadrant. aware.
[2025-01-21] MEDS: DICYCLOMINE HCL 10 MG CAPSULE 20 MG PO (14:34)
[2025-01-21 16:02] VITALS: BP 127/85; PULSE 70; RESP 18; TEMP 36.6; O2SAT 100
== END 2025-01-21 15:23 | disposition home or self-care (01) ==
PROVIDERS: Emergency Provider Emergency Medicine; PCP Emergency Medicine
DX: L03.115 Cellulitis of right lower limb (principal); J45.909 Unspecified asthma, uncomplicated
CPT/HCPCS: 36415; 80053; 83605; 85025; 85610; 85730; 86140; 87040; 96365; 96375; 99284; A9270; J2270; J2405; J3010